=== PATIENT | female | born 1940 | race Caucasian/White ===

== ENCOUNTER → 2017-10-18 | Outpatient (CLI) | payer OTHER, MEDICARE ==
[~2017-10-18] MED LIST: ASCO100T4 PO; ASPECOTC PO; ASPI-391 PO; CHOL100027 PO; CYAN250T PO; CYM/30 PO; DULO-24 PO; GABA-112 PO; HYDR-5688 PO; HYDR2.5O TOP; LVMI SQ; PRT/20 PO
[2017-10-18 12:13] LABS: BASO % 0.4 %; BASO ABS # 0.02 K/uL (0-0.2); EOS % 1.6 %; EOS ABS # 0.08 K/uL (0-0.5); HEMATOCRIT 43.4 % (37-47); HEMOGLOBIN 14.7 g/dL (12.0-16.0); IG# 0.01 K/uL (0.00-0.02); LYMPH % 42.4 %; LYMPH ABS # 2.13 K/uL (1.2-3.4); MEAN CELL VOLUME 88.2 fL (80-100); MEAN CORPUSCULAR HEMOGLOBIN 29.9 pg (25-34); MEAN CORPUSCULAR HGB CONC 33.9 g/dl (32-36); MEAN PLATELET VOLUME 9.7 fL (7.4-10.4); MONO % 8.2 %; MONO ABS # 0.41 K/uL (0.11-0.59); NEUT % 47.2 %; NEUT ABS # 2.37 K/uL (1.4-6.5); PLATELET COUNT 262 K/uL (130-400); RED CELL DISTRIBUTION WIDTH CV 14.1 % (11.5-14.5); RED CELL DISTRIBUTION WIDTH SD 45.1 fL (36.4-46.3); WHITE BLOOD COUNT 5.02 K/uL (4.8-10.8)
[2017-10-18 12:30] LABS: HEMOGLOBIN A1C 7.1 % (4.5-5.6)
[2017-10-18 12:41] LABS: ALT/SGPT 30 U/L (12-78); BLOOD UREA NITROGEN 26 mg/dl (7-18); CALCIUM 9.5 mg/dl (8.5-10.1); CARBON DIOXIDE 29 mmol/L (21-32); CHOLESTEROL 305 mg/dl (0-200); CREATININE 0.72 mg/dl (0.60-1.20); GLUCOSE 133 mg/dl (70-99); SODIUM 138 mmol/L (136-145)
[2017-10-18 12:57] LABS: ALKALINE PHOSPHATASE 86 U/L (45-117); AST/SGOT 19 U/L (15-37); LDL CHOLESTEROL CALCULATED 190 mg/dl; TOTAL PROTEIN 7.1 gm/dl (6.4-8.2)
--- NOTE | 2017-10-24 13:23 | CODING QUERY MEDICAL NECESSITY ---
SUPPORTING DIAGNOSIS NEEDED A supporting diagnosis is required for the test/procedure performed on this patient in order for us to be reimbursed by the patient's insurance. Please provide a supporting diagnosis for the following test/procedure listed below next to the test name along with your signature. *If there is no additional diagnosis for this patient that would support the following test/procedure please document that below next to the test/procedure. Test(s)/Procedure(s) that require a supporting diagnosis: * VITAMIN D, 25-HYDROXY DIAGNOSIS: * VITAMIN B12 DIAGNOSIS: Provider Signature: Date: Thank you Adeline Suh [facility] Information Management Once completed, please kindly fax back to [phone] For questions please call [phone]
== END | disposition home or self-care (01) ==
LOC: C.LAB1850 10:40
PROVIDERS: ATTEND Internal Medicine Endocrinology, Diabetes & Metabolism
DX: E11.9 Type 2 diabetes mellitus without complications (principal)

== ENCOUNTER 2018-02-16 20:54 | Emergency (ER) | payer OTHER, MEDICARE ==
[~2018-02-16] VITALS: Ht 154.9 cm; Wt 60.9 kg
[2018-02-16 21:00] VITALS: TEMP 36.8; Ht 154.9 cm; Wt 60.9 kg
[2018-02-16] MEDS ORDERED: SODIUM CHLORIDE 0.9% 1000ML 1,000 ML IV STA (21:18)
[2018-02-16] MEDS ORDERED: MoRPHine SULFATE 4 MG/ML 1 ML CARP\\VIAL IV STA ×2 (21:18→23:09)
[2018-02-16] MEDS ORDERED: ONDANSETRON INJ 2 MG/ML 2 ML VIAL IV STA (21:18)
[2018-02-16] MEDS ORDERED: DULO-24 PO (22:12)
[2018-02-16] MEDS ORDERED: CHOL100027 PO (22:12)
[2018-02-16] MEDS ORDERED: ASPECOTC PO (22:12)
[2018-02-16] MEDS ORDERED: CYM/30 PO (22:12)
[2018-02-16] MEDS ORDERED: ASPI-391 PO (22:12)
[2018-02-16] MEDS ORDERED: HYDR-5688 PO (22:12)
[2018-02-16] MEDS ORDERED: PRT/20 PO (22:12)
[2018-02-16] MEDS ORDERED: HYDR2.5O TOP (22:12)
[2018-02-16] MEDS ORDERED: CYAN250T PO (22:12)
[2018-02-16] MEDS ORDERED: ASCO100T4 PO (22:12)
[2018-02-16] MEDS ORDERED: GABA-112 PO (22:12)
[2018-02-16] MEDS ORDERED: LVMI SQ (22:12)
[2018-02-16 22:38] LABS: BASO % 0.5 %; BASO ABS # 0.04 K/uL (0-0.2); EOS % 1.6 %; EOS ABS # 0.13 K/uL (0-0.5); HEMATOCRIT 39.2 % (37-47); HEMOGLOBIN 13.9 g/dL (12.0-16.0); IG# 0.01 K/uL (0.00-0.02); LYMPH % 37.9 %; MEAN CELL VOLUME 85.8 fL (80-100); MEAN CORPUSCULAR HEMOGLOBIN 30.4 pg (25-34); MEAN CORPUSCULAR HGB CONC 35.5 g/dl (32-36); MEAN PLATELET VOLUME 9.4 fL (7.4-10.4); MONO % 8.2 %; MONO ABS # 0.65 K/uL (0.11-0.59); NEUT % 51.7 %; NEUT ABS # 4.09 K/uL (1.4-6.5); PLATELET COUNT 219 K/uL (130-400); RED CELL DISTRIBUTION WIDTH CV 14.4 % (11.5-14.5); RED CELL DISTRIBUTION WIDTH SD 43.5 fL (36.4-46.3); WHITE BLOOD COUNT 7.92 K/uL (4.8-10.8)
--- NOTE | 2018-02-16 22:51 | DIAGNOSTIC IMAGING REPORT ---
SINGLE VIEW CHEST CLINICAL HISTORY: Atypical chest pain. FINDINGS: An AP, portable, upright chest radiograph is obtained. No prior studies are available for comparison at the time of dictation. The examination is degraded by portable technique and patient rotation. The cardiomediastinal silhouette is unremarkable. There is mild atherosclerotic calcification of the thoracic and. Airspace opacities are seen at both lung bases, left greater than right. No large pleural effusion or pneumothorax is seen. The skeletal structures are osteopenic. The bony thorax is grossly intact. IMPRESSION: There are bibasilar patchy airspace opacities, left greater than right. This could represent atelectasis versus an infectious/inflammatory pneumonitis. Clinical correlation will be required. Radiographic follow-up to resolution is recommended. Electronically signed by: Vicente Nunez M.D. 02/16/2018 10:50 PM Dictated Date/Time: 02/16/2018 10:48 PM
[2018-02-16 22:54] LABS: CALCIUM 9.4 mg/dl (8.5-10.1); CREATININE 0.79 mg/dl (0.60-1.20); POTASSIUM 3.8 mmol/L (3.5-5.1)
[2018-02-16 23:40] VITALS: BP 147/77; PULSE 91; O2SAT 97
--- NOTE | 2018-02-17 00:33 | EMERGENCY ROOM VISIT NOTE ---
History Report prepared by Edgar: Vladimir Branch Under the Supervision of: Dr. Marco A Buchanan D.O. First contact with patient: 21:06 Chief Complaint: OTHER COMPLAINT Stated Complaint: NERVE PAIN, SHINGLES History of Present Illness The patient is an 78 year old female who presents to the Emergency Room with complaints of worsening pain along her left chest wall that began 15 days ago. The patient was diagnosed with Shingles on February 01 while she was in [place] for her birthday. She was given steroids and hydrocortisone cream. The pain acutely worsened this evening when she applied ice 45 minutes ago to her left chest wall. She notes that she has been using ice in the past to improve her symptoms. She denies any headache, change in vision, fevers, chest pain, shortness of breath, nausea, vomiting, diarrhea, pain with urination, and melena. Source of History: patient Onset: 15 days ago Position: chest (Left chest wall) Quality: other (shingles pain) Timing: worsening (45 minutes ago) Modifying Factors (Worsening): other (Applying ICe) Associated Symptoms: No SOB, No nausea, No vomiting Review of Systems See HPI for pertinent positives & negatives. A total of 10 systems reviewed and were otherwise negative. Social History Smoking Status: Never Smoker Current/Historical Medications Scheduled Ascorbic Acid (Vitamin C), 1 TAB PO DAILY Aspirin (Aspirin), 325 MG PO PRN Vnfwxnm-Iaanlhczugxyo-Mcsfwfba (Excedrin Extra Strength), 1 TAB PO PRN Cholecalciferol (Vitamin D 1000 Unit), 1,000 INTER.UNIT PO DAILY Cyanocobalamin (Vitamin B-12), 1 TAB PO DAILY Duloxetine HCl (Cymbalta), 30 MG PO DAILY Duloxetine Hcl (Cymbalta), 10 MG PO DAILY Gabapentin (Neurontin), 1 TAB PO BID Insulin Detemir (Levemir), 18 UNITS SQ DAILY Pantoprazole (Protonix), 20 MG PO DAILY Scheduled PRN Hydrocodone/Acetaminophen 5MG/325MG (Stambaugh 5MG/325MG), 1-2 TABLETS PO 4-6HRS PRN for Pain Hydrocortisone (Topical) (Hydrocortisone), 1 APPLN TOP BID PRN for Allergies Uncoded Allergies: UNKNOWN BP MED (Allergy, Severe, PUFFY FACE, 02/16/18) Physical Exam Vital Signs Date Time Temp Pulse Resp B/P (MAP) Pulse Ox O2 Delivery O2 Flow Rate FiO2 02/16/18 23:40 91 20 147/77 97 Room Air 02/16/18 22:48 91 20 142/75 95 Room Air 02/16/18 21:00 36.8 99 16 163/76 97 Room Air Physical Exam GENERAL: Standing in room, alert, holding left chest wall mild distress, non- toxic EYE EXAM: normal conjunctiva. OROPHARYNX: no exudate, no erythema, lips, buccal mucosa, and tongue normal and mucous membranes are moist NECK: supple, no nuchal rigidity, no adenopathy, non-tender LUNGS: Clear to auscultation. Normal chest wall mechanics HEART: no murmurs, S1 normal and S2 normal ABDOMEN: abdomen soft, non-tender, normo-active bowel sounds, no masses, no rebound or guarding. BACK: Back is symmetrical on inspection and there is no deformity, no midline tenderness, no CVA tenderness. SKIN: There is an erythematous, blistering rash over the left chest wall. UPPER EXTREMITIES: upper extremities are grossly normal. LOWER EXTREMITIES: No pitting edema. NEURO EXAM: Normal sensorium, cranial nerves II-XII grossly intact, normal speech, no gross weakness of arms, no gross weakness of legs. Medical Decision & Procedures ER Provider Diagnostic Interpretation: Radiology results as stated below per my review and the radiologist's interpretation: SINGLE VIEW CHEST CLINICAL HISTORY: Atypical chest pain. FINDINGS: An AP, portable, upright chest radiograph is obtained. No prior studies are available for comparison at the time of dictation. The examination is degraded by portable technique and patient rotation. The cardiomediastinal silhouette is unremarkable. There is mild atherosclerotic calcification of the thoracic and. Airspace opacities are seen at both lung bases, left greater than right. No large pleural effusion or pneumothorax is seen. The skeletal structures are osteopenic. The bony thorax is grossly intact. IMPRESSION: There are bibasilar patchy airspace opacities, left greater than right. This could represent atelectasis versus an infectious/inflammatory pneumonitis. Clinical correlation will be required. Radiographic follow-up to resolution is recommended. Electronically signed by: Vicente Nunez M.D. 02/16/2018 10:50 PM Dictated Date/Time: 02/16/2018 10:48 PM Laboratory Results 02/16/18 22:25 Red Blood Count 4.57, Mean Corpuscular Volume 85.8, Mean Corpuscular Hemoglobin 30.4, Mean Corpuscular Hemoglobin Concent 35.5, Mean Platelet Volume 9.4, Neutrophils (%) (Auto) 51.7, Lymphocytes (%) (Auto) 37.9, Monocytes (%) (Auto) 8.2, Eosinophils (%) (Auto) 1.6, Basophils (%) (Auto) 0.5, Neutrophils # (Auto) 4.09, Lymphocytes # (Auto) 3.00, Monocytes # (Auto) 0.65, Eosinophils # (Auto) 0.13, Basophils # (Auto) 0.04 02/16/18 22:25 Test 02/16/18 22:25 White Blood Count 7.92 K/uL (4.8-10.8) Red Blood Count 4.57 M/uL (4.2-5.4) Hemoglobin 13.9 g/dL (12.0-16.0) Hematocrit 39.2 % (37-47) Mean Corpuscular Volume 85.8 fL (80-100) Mean Corpuscular Hemoglobin 30.4 pg (25-34) Mean Corpuscular Hemoglobin Concent 35.5 g/dl (32-36) Platelet Count 219 K/uL (130-400) Mean Platelet Volume 9.4 fL (7.4-10.4) Neutrophils (%) (Auto) 51.7 % Lymphocytes (%) (Auto) 37.9 % Monocytes (%) (Auto) 8.2 % Eosinophils (%) (Auto) 1.6 % Basophils (%) (Auto) 0.5 % Neutrophils # (Auto) 4.09 K/uL (1.4-6.5) Lymphocytes # (Auto) 3.00 K/uL (1.2-3.4) Monocytes # (Auto) 0.65 K/uL (0.11-0.59) Eosinophils # (Auto) 0.13 K/uL (0-0.5) Basophils # (Auto) 0.04 K/uL (0-0.2) RDW Standard Deviation 43.5 fL (36.4-46.3) RDW Coefficient of Variation 14.4 % (11.5-14.5) Immature Granulocyte % (Auto) 0.1 % Immature Granulocyte # (Auto) 0.01 K/uL (0.00-0.02) Anion Gap 8.0 mmol/L (3-11) Est Creatinine Clear Calc Drug Dose 47.5 ml/min Estimated GFR () 81.9 Estimated GFR (Non- 70.7 BUN/Creatinine Ratio 19.5 (10-20) Calcium Level 9.4 mg/dl (8.5-10.1) Laboratory results per my review. Medications Administered Medications (Trade) Dose Ordered Sig/Brie Route Start Time Stop Time Status Last Admin Dose Admin Sodium Chloride 1,000 ml @ 999 mls/hr Q1H1M STAT IV 02/16/18 21:18 02/16/18 22:18 DC 02/16/18 22:44 999 MLS/HR Ondansetron HCl (Zofran Inj) 4 mg NOW STAT IV 02/16/18 21:18 02/16/18 21:21 DC 02/16/18 22:33 4 MG Morphine Sulfate (MoRPHine SULFATE INJ) 4 mg NOW STAT IV 02/16/18 21:18 02/16/18 21:21 DC 02/16/18 22:34 4 MG Morphine Sulfate (MoRPHine SULFATE INJ) 4 mg NOW STAT IV 02/16/18 23:09 02/16/18 23:10 DC 02/16/18 23:39 4 MG ECG Per My Interpretation Indication: chest pain (shingles) Rate (beats per minute): 92 Rhythm: normal sinus Findings: other (No PVCs, no MONI/STD) ED Course ED COURSE: Vital signs were reviewed and showed situationally hypertensive vitals. The patients medical record was reviewed The above diagnostic studies were performed and reviewed. ED treatments and interventions as stated above. 2106: The patient was evaluated in room B10. A complete history and physical examination was performed. 2117: Ordered Morphine Sulfate 4 mg IV, Zofran 4 mg IV, Sodium Chloride 1000 mL @ 999 mL/hr IV. 2308: Ordered Morphine Sulfate 4 mg IV. 2310: Upon reevaluation, the patient is resting in bed.I discussed my findings with the patient and she understands and agrees with the treatment plan. Based on the patients age, coexisting illnesses, exam and lab findings the decision to treat as an outpatient was made. The patient remained stable while under my care. The patient appeared well at the time of discharge. Medical Decision Differential diagnosis: Etiologies such as contact dermatitis, viral exanthem, urticaria, allergic reaction, Carpio-Tre syndrome, toxic epidermal necrolysis, erythema multiforme, cellulitis, scabies, HSV, varicella, zoster, eczema, staph scalded skin syndrome, fungal infection, as well as others were entertained. Patient is an 78-year-old female who presents the ER for zoster and left-sided chest pain. Pain is located at the site of the rash. CBC along with BMP is unremarkable. Chest x-ray was unremarkable. EKG was benign. Patient was given IV morphine 2. She felt significantly better. She is discharged follow- up with PCP as an outpatient. Discussed with Pt concerning signs and symptoms to watch out for. Pt was instructed to follow up with their PCP and discussed with the patient their option to return to the ED at anytime for persistent or worsening symptoms. The appropriate anticipatory guidance and out-patient management, including indications for return to the emergency department, were explained at length to the patient and understood. Medication Reconcilliation Current Medication List: was personally reviewed by me Blood Pressure Screening Patient's blood pressure: Elevated blood pressure Blood pressure disposition: Elevated BP felt to be situational Impression Primary Impression: Zoster Scribe Attestation The scribe's documentation has been prepared under my direction and personally reviewed by me in its entirety. I confirm that the note above accurately reflects all work, treatment, procedures, and medical decision making performed by me. Departure Information Dispostion Home / Self-Care Referrals Rosey Moore M.D. (PCP) Forms HOME CARE DOCUMENTATION FORM, IMPORTANT VISIT INFORMATION, WORK / SCHOOL INSTRUCTIONS Patient Instructions My [facility] Additional Instructions Please follow up with your primary care doctor with in the next 24 hours. Any worsening of your symptoms, please return to the ED immediately. This includes any fevers greater than 100.4, worsening pain, chest pain, shortness breath, persistent nausea, vomiting, unable to eat or drink, or any other concerning signs or symptoms from your standpoint. You were given medications during this visit that will inhibit your ability to drive, operate machinery and work. Please do NOT drive, operate machinery, drink alcohol or work for the next 12hrs. You have oral narcotics at home. Was initially given you a prescription of this but yet same medications at home. Please take these as prescribed. Problem Qualifiers Primary Impression: Zoster Herpes zoster complications: without complications Qualified Codes: B02.9 - Zoster without complications
== END 2018-02-16 23:51 | disposition home or self-care (01) ==
LOC: C.EDB 20:56
DX: B02.9 Zoster without complications (principal); Z79.899 Other long term (current) drug therapy

== ENCOUNTER → 2018-06-09 | Outpatient (CLI) | payer OTHER, MEDICARE ==
--- NOTE | 2018-06-09 17:47 | DIAGNOSTIC IMAGING REPORT ---
R WRIST MIN 3 VIEWS ROUTINE CLINICAL HISTORY: Bilateral wrist pain. COMPARISON: None FINDINGS: A ring on the fourth finger is noted. No fracture or suspicious lesion is noted. No erosions are identified. There is mild osteophytosis of the right first metacarpophalangeal joint. IMPRESSION: 1. No acute fracture or dislocation within the right wrist. 2. No radiographic evidence of erosive/inflammatory arthropathy. 3. 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 Electronically signed by: Justo Rai M.D. 06/09/2018 5:46 PM Dictated Date/Time: 06/09/2018 5:45 PM
--- NOTE | 2018-06-09 17:53 | DIAGNOSTIC IMAGING REPORT ---
L WRIST MIN 3 VIEWS ROUTINE CLINICAL HISTORY: Bilateral wrist pain. COMPARISON: None FINDINGS: Note is made of cortical irregularity of the radial styloid with overlying soft tissue swelling. No acute fracture is identified. There is mild osteophytosis of the left first carpometacarpal joint. IMPRESSION: Cortical irregularity of the radial styloid with overlying soft tissue swelling which favors De Quervain's tenosynovitis. Electronically signed by: Justo Rai M.D. 06/09/2018 5:52 PM Dictated Date/Time: 06/09/2018 5:48 PM
[2018-06-10 06:04] LABS: HEMOGLOBIN A1C 8.1 % (4.5-5.6)
== END | disposition home or self-care (01) ==
LOC: C.RAD1850 16:57
PROVIDERS: ATTEND Internal Medicine Rheumatology
DX: E11.42 Type 2 diabetes mellitus with diabetic polyneuropathy (principal); M25.532 Pain in left wrist; M65.4 Radial styloid tenosynovitis [de Quervain]

== ENCOUNTER 2023-02-22 12:38 | Inpatient (IN) ==
--- NOTE | 2023-02-22 13:09 | XRay Report ---
SINGLE VIEW CHEST CLINICAL HISTORY: Cough. Illness FINDINGS: An AP, portable, upright chest radiograph is compared to study dated 02/16/2018. The cardiom ediastinal silhouette is unremarkable noting atherosclerotic calcification of the thoracic aorta. Chr onic interstitial thickening is similar to previous. There is bibasilar scarring/atelectasis. No airs pace consolidation or large pleural effusion is identified. No pneumothorax is seen. The skeletal str uctures are osteopenic. The bony thorax is grossly intact. An indeterminate ovoid metallic foreign angel dy projects over the upper abdomen. IMPRESSION: 1. No acute cardiopulmonary abnormality. 2. An indeterminant metallic foreign body projects over the upper abdomen. Correlate clinically. ACT 112: Negative or not required by law. Electronically signed by: Vicente Nunez M.D. 02/22/2023 1:07 PM
[2023-02-22 13:45] LABS: Basophils # (auto) 0.01 K/uL (0-0.2); Basophils % (auto) 0.1 %; Hematocrit (blood only) 41.6 % (37.0-47.0); Hemoglobin 14.3 g/dl (12.0-16.0); Immature Granulocytes # (auto) 0.02 K/uL (0.01-0.20); Immature Granulocytes % (auto) 0.3 %; Lymphocytes # (auto) 0.76 K/uL (1.2-3.4); Lymphocytes % (auto) 11.4 %; Mean Corpuscular Hemoglobin 29.2 pg (25.0-34.0); Mean Corpuscular Hgb Conc 34.4 g/dL (32.0-36.0); Mean Corpuscular Volume 85.1 fL (80.0-100.0); Mean Platelet Volume 10.4 fL (9.4-12.4); Monocytes # (auto) 0.65 K/uL (0.11-0.59); Monocytes % (auto) 9.7 %; Neutrophils # (auto) 5.25 K/uL (1.40-6.50); Neutrophils % (auto) 78.5 %; Platelet Count 202 K/uL (130-400); RDW Coefficient of Variation 13.8 % (11.5-14.5); RDW Standard Deviation 42.9 fL (36.4-46.3); Red Blood Count 4.89 M/uL (4.20-5.40); White Blood Count 6.69 K/ul (4.8-10.8)
[2023-02-22] MEDS ORDERED: SODIUM CHLORIDE 0.9% 1000ML 500 ML IV ONE (13:49)
--- NOTE | 2023-02-22 13:54 | Emergency Department Note ---
Impression & Plan Hypoxia ADMIT ED Provider Note HPI: The patient is an 83-year-old female who presents emergency department chief complaint of cough and shortness of breath. Patient states her symptoms of been ongoing for about the past 5 or 6 days. Patient states she just returned home from a trip to [place] on Saturday. She states her symptoms did begin while she was still in [place]. She states that she has had a cough that has been productive of sputum. States she does feel short of breath. On arrival here to the ED the patient is hemodynamically stable, she is in no acute distress, saturations are in the low 90s on room air on arrival with mild increased work of breathing ROS: - Per HPI *Outpatient medications and allergy history reviewed. *Pertinent external medical records reviewed. PE: General: Alert HEENT: Normocephalic, trachea midline Eyes: Extraocular eye movement is intact, no scleral erythema Pulmonary: Coarse bilateral breath sounds without wheezing, no crackles Cardio: Regular rate and rhythm GI: Abdomen is soft to palpation : No suprapubic tenderness MSK: No evidence of trauma or malformation of the extremities, no edema Skin: No evidence of rash Neuro: Alert, no focal deficits Psychiatric: Cooperative panel monitor: (As interpreted by myself): - An order was placed for continuous cardiac monitoring - Patient was noted to be in sinus rhythm with a rate of 90 EKG: (As interpreted by myself): Rate: 100 Rhythm: Normal sinus rhythm Intervals: Within normal limits ST changes: No ST elevation Time: 1308 Interventions provided in ED: -IV Decadron, DuoNeb breathing treatment Differential Diagnosis: Viral upper respiratory infection with cough, acute bacterial pneumonia, pulmonary embolism, acute coronary syndrome, amongst other potential pathologies. Medical Decision Making: Patient presented to the emergency department with cough and shortness of breath that is been worsening over the past 5 days or so. She recently traveled to [place] and returned home this past Saturday. She states that someone in her tr elly group had COVID-19. On arrival here to the ED the patient does not have a fever, she was initially saturating well on room air however did have an episode of desaturation to 87% here in the ED and therefore was placed on nasal cannula oxygen with good improvement. IV was established and lab work obtained, patient was maintained on court monitor. Lab work shows no leukocytosis, hemoglobin is stable, platelet count is within normal limits, venous blood gas does not show any evidence of h ypercarbia, venous pH is just slightly alkalotic at 7.44, CMP does not show any critical findings, hyperglycemia at 322 without any evidence of DKA, troponin slightly elevated at 33.8. Procalcitonin pending. COVID-19 testing was obtained and is positive. Given the patient's hypoxia and oxygen requirement, decision was made for admission following my discussion with the patient and her daughter at the bedside. Chest x-ray was not noted to show any focal pneumonia. CT angiography did not show any evidence of PE. Case was discussed with the on-call midlevel provider for [facility], patient was placed for admission in stable condition. Consultants: [facility] Disposition discussion held by myself with: Patient * CRITICAL CARE TIME: (35) minutes -Stabilization of hypoxia with oxygen saturation less than 90% on room air requiring supplemental oxygen for correction, interpretation of EKG and diagnostic studies time spent at the bedside, discussion with other healthcare providers and arrangement of admission Diagnosis: 1. COVID-19 infection, acute 2. Hypoxia, acute Disposition: Admission Kiran Nieves DO Emergency Medicine Past Med/Surg History Medical History (Updated 02/22/23 @ 18:29 by Kiran Nieves DO) Degenerative disc disease Depression Diarrhea DM type 2 (diabetes mellitus, type 2) IDDM GERD (gastroesophageal reflux disease) History of colon polyps History of migraine History of sigmoidoscopy Hyperlipemia no meds Osteoarthritis Osteoporosis TMJ (temporomandibular joint disorder) Surgical History History of appendectomy History of arthroscopic knee surgery History of bilateral knee replacement History of colonoscopy History of tonsillectomy and adenoidectomy Slow to wake up after anesthesia Family History Other No family history of adverse response to anesthesia Social History Smoking Status: Former smoker Second Hand Exposure: No; Do You Dip or Chew Tobacco: No; Hx Alcohol Use: Yes Alcohol type: wine Hx Substance Use: No Preferred Language: Indonesian Communication Ability: Effective Odd Ticket Clerk Required: No Beliefs That Will Affect Care: None Current Living Situation: Alone Feels Safe at Home: Yes Assistive Devices: Glasses Allergies Allergies Allergy/AdvReac Type Severity Reaction Status Date / Time latex Allergy Redness of Verified 02/22/23 15:44 Skin UNKNOWN BP MED Allergy Severe PUFFY FACE Uncoded 02/22/23 15:44 Home Meds Home Medications Medication Instructions Recorded Confirmed buspirone 10 mg tablet 10 mg PO BID 02/22/23 02/22/23 cetirizine 10 mg tablet (Zyrtec) 10 mg PO DAILY 02/22/23 02/22/23 famotidine 20 mg tablet 20 mg PO BID 02/22/23 02/22/23 ibuprofen 200 mg tablet 400 mg PO Q6H PRN Pain 02/22/23 02/22/23 insulin glargine 100 unit/mL (3 30 unit subcut HS 02/22/23 02/22/23 mL) subcutaneous pen (Lantus Solostar U-100 Insulin) melatonin 5 mg tablet 5 mg PO DAILYBL 02/22/23 02/22/23 mirtazapine 15 mg tablet 15 mg PO QPM 02/22/23 02/22/23 multivitamin 1 tab PO DAILY 02/22/23 02/22/23 pantoprazole 40 mg tablet,delayed 40 mg PO DAILY 02/22/23 02/22/23 release venlafaxine 150 mg 150 mg PO BID 02/22/23 02/22/23 capsule,extended release 24 hr vitamin E (dl, acetate) 180 mg 180 mg PO HS 02/22/23 02/22/23 (400 unit) capsule Results & Data (ED) Vital Signs Vital Signs - 24 hr 02/22/23 12:44 02/22/23 14:01 02/22/23 14:12 Temperature 37.5 C Temperature Source Temporal Artery Scan Pulse Rate 107 H Pulse Rate [Apical] 94 H Respiratory Rate 20 24 Respiratory Effort / Characteristics Non-Labored Spontaneous Non-Labored Spontaneous Respiratory Depth Normal Normal Respiratory Pattern Regular Blood Pressure 153/81 H Blood Pressure [Right Arm] 123/60 Blood Pressure Mean 105 Blood Pressure Mean [Right Arm] 81 Pulse Oximetry 93 92 95 Oxygen Delivery Method Room Air Room Air Nasal Cannula Oxygen Flow Rate 2 Sepsis Recent Fever Within 48 Hours No Sepsis New/Unexplained Change in Mental Status No Sepsis Action Taken by Nursing No Action Required 02/22/23 14:10 02/22/23 16:03 02/22/23 17:55 Temperature Temperature Source Pulse Rate 90 87 Pulse Rate [Apical] Respiratory Rate 22 Respiratory Effort / Characteristics Respiratory Depth Respiratory Pattern Blood Pressure 111/72 Blood Pressure [Right Arm] Blood Pressure Mean Blood Pressure Mean [Right Arm] Pulse Oximetry 87 L 94 Oxygen Delivery Method Room Air Room Air Oxygen Flow Rate Sepsis Recent Fever Within 48 Hours Sepsis New/Unexplained Change in Mental Status Sepsis Action Taken by Nursing Laboratory Data 02/22/23 13:20 02/22/23 13:20 Lab Results 02/22/23 02/22/23 02/22/23 Range/Units 13:20 13:20 13:20 WBC 6.69 (4.8-10.8) K/ul RBC 4.89 (4.20-5.40) M/uL Hgb 14.3 (12.0-16.0) g/dl Hct 41.6 (37.0-47.0) % MCV 85.1 (80.0-100.0) fL MCH 29.2 (25.0-34.0) pg MCHC 34.4 (32.0-36.0) g/dL RDW Std Deviation 42.9 (36.4-46.3) fL RDW Coeff of Joseph 13.8 (11.5-14.5) % Plt Count 202 (130-400) K/uL MPV 10.4 (9.4-12.4) fL Immature Gran % (Auto) 0.3 % Neut % (Auto) 78.5 % Lymph % (Auto) 11.4 % Carson % (Auto) 9.7 % Eos % (Auto) 0.0 % Baso % (Auto) 0.1 % Neut # (Auto) 5.25 (1.40-6.50) K/uL Lymph # (Auto) 0.76 L (1.2-3.4) K/uL Carson # (Auto) 0.65 H (0.11-0.59) K/uL Eos # (Auto) 0.00 (0-0.50) K/uL Baso # (Auto) 0.01 (0-0.2) K/uL Immature Gran # (Auto) 0.02 (0.01-0.20) K/uL VBG pH (7.36-7.41) VBG pCO2 (38-50) mmHg VBG pO2 mmHg VBG HCO3 mmol/L VBG O2 Saturation % VBG Base Excess mEq/L Sodium 130 L (136-145) mmol/L Potassium 3.9 (3.5-5.1) mmol/L Chloride 98 (98-107) mmol/L Carbon Dioxide 22 (21-32) mmol/L Anion Gap 10 (3-11) BUN 15 (6-23) mg/dl Creatinine 0.70 (0.6-1.2) mg/dl Est Cr Clr Drug Dosing 44.3 ml/min Est GFR ( Amer) 91.6 ml/min Est GFR (Non-Af Amer) 79.0 ml/min BUN/Creatinine Ratio 21.4 H (10-20) Glucose 322 H* (70-99(Fasting)) mg/dl Calcium 9.0 (8.6-10.3) mg/dl Total Bilirubin 0.4 (0.2-1.0) mg/dl AST 25 (13-39) U/L ALT 18 (7-52) U/L Alkaline Phosphatase 77 (34-104) U/L Troponin I High Sens 33.8 H (0-14) pg/ml C-Reactive Protein Total Protein 6.6 (6.0-8.3) gm/dl Albumin 4.1 (3.4-5.0) gm/dl Globulin 2.5 (2.5-4.0) gm/dl Albumin/Globulin Ratio 1.6 (0.9-2) Adenovirus (PCR) (NotDetected) B. pertussis DNA (PCR) (NotDetected) B.parapertussis DNA PCR (NotDetected) C. pneumoniae DNA (PCR) (NotDetected) Coronavirus OC43 (PCR) (NotDetected) Coronavirus HKU1 (PCR) (NotDetected) Coronavirus 229E (PCR) (NotDetected) SARS-CoV-2 (PCR) (NotDetected) Coronavirus NL63 (PCR) (NotDetected) Human Metapneumovir PCR (NotDetected) Influenza Type A (PCR) (NotDetected) Influenza Type B (PCR) (NotDetected) M. pneumoniae (PCR) (NotDetected) Parainfluenza 1 (PCR) (NotDetected) Parainfluenza 2 (PCR) (NotDetected) Parainfluenza 3 (PCR) (NotDetected) Parainfluenza 4 (PCR) (NotDetected) RSV (PCR) (NotDetected) Entero/Rhino (PCR) (NotDetected) Group A Strep (Molecular) (Negative) Group A Strep (PCR) Cancelled 02/22/23 02/22/23 02/22/23 Range/Units 13:20 13:20 13:48 WBC (4.8-10.8) K/ul RBC (4.20-5.40) M/uL Hgb (12.0-16.0) g/dl Hct (37.0-47.0) % MCV (80.0-100.0) fL MCH (25.0-34.0) pg MCHC (32.0-36.0) g/dL RDW Std Deviation (36.4-46.3) fL RDW Coeff of Joseph (11.5-14.5) % Plt Count (130-400) K/uL MPV (9.4-12.4) fL Immature Gran % (Auto) % Neut % (Auto) % Lymph % (Auto) % Carson % (Auto) % Eos % (Auto) % Baso % (Auto) % Neut # (Auto) (1.40-6.50) K/uL Lymph # (Auto) (1.2-3.4) K/uL Carson # (Auto) (0.11-0.59) K/uL Eos # (Auto) (0-0.50) K/uL Baso # (Auto) (0-0.2) K/uL Immature Gran # (Auto) (0.01-0.20) K/uL VBG pH (7.36-7.41) VBG pCO2 (38-50) mmHg VBG pO2 mmHg VBG HCO3 mmol/L VBG O2 Saturation % VBG Base Excess mEq/L Sodium (136-145) mmol/L Potassium (3.5-5.1) mmol/L Chloride (98-107) mmol/L Carbon Dioxide (21-32) mmol/L Anion Gap (3-11) BUN (6-23) mg/dl Creatinine (0.6-1.2) mg/dl Est Cr Clr Drug Dosing ml/min Est GFR ( Amer) ml/min Est GFR (Non-Af Amer) ml/min BUN/Creatinine Ratio (10-20) Glucose (70-99(Fasting)) mg/dl Calcium (8.6-10.3) mg/dl Total Bilirubin (0.2-1.0) mg/dl AST (13-39) U/L ALT (7-52) U/L Alkaline Phosphatase (34-104) U/L Troponin I High Sens Cancelled (0-14) pg/ml C-Reactive Protein Total Protein (6.0-8.3) gm/dl Albumin (3.4-5.0) gm/dl Globulin (2.5-4.0) gm/dl Albumin/Globulin Ratio (0.9-2) Adenovirus (PCR) Not Detected (NotDetected) B. pertussis DNA (PCR) Not Detected (NotDetected) B.parapertussis DNA PCR Not Detected (NotDetected) C. pneumoniae DNA (PCR) Not Detected (NotDetected) Coronavirus OC43 (PCR) Not Detected (NotDetected) Coronavirus HKU1 (PCR) DETECTED A* (NotDetected) Coronavirus 229E (PCR) Not Detected (NotDetected) SARS-CoV-2 (PCR) DETECTED A* (NotDetected) Coronavirus NL63 (PCR) Not Detected (NotDetected) Human Metapneumovir PCR Not Detected (NotDetected) Influenza Type A (PCR) Not Detected (NotDetected) Influenza Type B (PCR) Not Detected (NotDetected) M. pneumoniae (PCR) Not Detected (NotDetected) Parainfluenza 1 (PCR) Not Detected (NotDetected) Parainfluenza 2 (PCR) Not Detected (NotDetected) Parainfluenza 3 (PCR) Not Detected (NotDetected) Parainfluenza 4 (PCR) Not Detected (NotDetected) RSV (PCR) Not Detected (NotDetected) Entero/Rhino (PCR) Not Detected (NotDetected) Group A Strep (Molecular) Negative (Negative) Group A Strep (PCR) 02/22/23 02/22/23 Range/Units 15:29 16:59 WBC (4.8-10.8) K/ul RBC (4.20-5.40) M/uL Hgb (12.0-16.0) g/dl Hct (37.0-47.0) % MCV (80.0-100.0) fL MCH (25.0-34.0) pg MCHC (32.0-36.0) g/dL RDW Std Deviation (36.4-46.3) fL RDW Coeff of Joseph (11.5-14.5) % Plt Count (130-400) K/uL MPV (9.4-12.4) fL Immature Gran % (Auto) % Neut % (Auto) % Lymph % (Auto) % Carson % (Auto) % Eos % (Auto) % Baso % (Auto) % Neut # (Auto) (1.40-6.50) K/uL Lymph # (Auto) (1.2-3.4) K/uL Carson # (Auto) (0.11-0.59) K/uL Eos # (Auto) (0-0.50) K/uL Baso # (Auto) (0-0.2) K/uL Immature Gran # (Auto) (0.01-0.20) K/uL VBG pH 7.44 H (7.36-7.41) VBG pCO2 36 L (38-50) mmHg VBG pO2 39 mmHg VBG HCO3 25 mmol/L VBG O2 Saturation 72.7 % VBG Base Excess 0.7 mEq/L Sodium (136-145) mmol/L Potassium (3.5-5.1) mmol/L Chloride (98-107) mmol/L Carbon Dioxide (21-32) mmol/L Anion Gap (3-11) BUN (6-23) mg/dl Creatinine (0.6-1.2) mg/dl Est Cr Clr Drug Dosing ml/min Est GFR ( Amer) ml/min Est GFR (Non-Af Amer) ml/min BUN/Creatinine Ratio (10-20) Glucose (70-99(Fasting)) mg/dl Calcium (8.6-10.3) mg/dl Total Bilirubin (0.2-1.0) mg/dl AST (13-39) U/L ALT (7-52) U/L Alkaline Phosphatase (34-104) U/L Troponin I High Sens (0-14) pg/ml C-Reactive Protein Cancelled Total Protein (6.0-8.3) gm/dl Albumin (3.4-5.0) gm/dl Globulin (2.5-4.0) gm/dl Albumin/Globulin Ratio (0.9-2) Adenovirus (PCR) (NotDetected) B. pertussis DNA (PCR) (NotDetected) B.parapertussis DNA PCR (NotDetected) C. pneumoniae DNA (PCR) (NotDetected) Coronavirus OC43 (PCR) (NotDetected) Coronavirus HKU1 (PCR) (NotDetected) Coronavirus 229E (PCR) (NotDetected) SARS-CoV-2 (PCR) (NotDetected) Coronavirus NL63 (PCR) (NotDetected) Human Metapneumovir PCR (NotDetected) Influenza Type A (PCR) (NotDetected) Influenza Type B (PCR) (NotDetected) M. pneumoniae (PCR) (NotDetected) Parainfluenza 1 (PCR) (NotDetected) Parainfluenza 2 (PCR) (NotDetected) Parainfluenza 3 (PCR) (NotDetected) Parainfluenza 4 (PCR) (NotDetected) RSV (PCR) (NotDetected) Entero/Rhino (PCR) (NotDetected) Group A Strep (Molecular) (Negative) Group A Strep (PCR) Administered Medications Discontinued Medications Albuterol (Albut/Ipratrop 3mg/0.5mg Neb 3 Ml Vial) 3 ml NEB NOW STA; Protocol Stop: 02/22/23 14:53 Last Admin: 02/22/23 15:35 Dose: 3 ml Documented By: SEEMA Sodium Chloride (Nss 1000ml) 500 mls @ 999 mls/hr IV .Q31M ONE Stop: 02/22/23 14:19 Last Infusion: 02/22/23 16:03 Dose: 0 mls/hr Documented By: Admin: 02/22/23 13:57 Dose: 999 mls/hr Documented By: GREG Ioversol (Optiray 320 500ml) 120 ml IV ONCE ONE Stop: 02/22/23 14:32 Last Admin: 02/22/23 14:32 Dose: 120 ml Documented By: SE Imaging Data Radiologist's Impression: Chest X-Ray 02/22/23 12:50 SINGLE VIEW CHEST CLINICAL HISTORY: Cough. Illness FINDINGS: An AP, portable, upright chest radiograph is compared to study dated 02/16/2018. The cardiomediastinal silhouette is unremarkable noting atherosclerotic calcification of the thoracic aorta. Chronic interstitial thickening is similar to previous. There is bibasilar scarring/atelectasis. No airspace consolidation or large pleural effusion is identified. No pneumothorax is seen. The skeletal structures are osteopenic. The bony thorax is grossly intact. An indeterminate ovoid metallic foreign body projects over the upper abdomen. IMPRESSION: 1. No acute cardiopulmonary abnormality. 2. An indeterminant metallic foreign body projects over the upper abdomen. Correlate clinically. ACT 112: Negative or not required by law. Electronically signed by: Vicente Nunez M.D. 02/22/2023 1:07 PM Chest CTA 02/22/23 13:50 CT ANGIOGRAPHY OF THE CHEST, PULMONARY EMBOLUS PROTOCOL CLINICAL HISTORY: Shortness of breath. Evaluate for pulmonary embolus. COMPARISON STUDY: Chest radiographs February 16, 2018 and February 22, 2023. TECHNIQUE: Following IV administration of 120 mL of Optiray, helical axial images of the chest were obtained utilizing the pulmonary embolus protocol. Maximal intensity projections and sagittal and coronal reformats were viewed on an independent 3D workstation. IV contrast was administered without complication. Automated exposure control was utilized for the study. A dose lowering technique was utilized adhering to the principles of ALARA. CT DOSE: 437.36 mGycm FINDINGS: No pulmonary emboli are identified although the segmental and subsegmental pulmonary arteries within the lower lobes are suboptimally assessed due to respiratory motion. There is no thoracic aortic dissection. There is no pericardial effusion. Mild cardiomegaly is noted. A few prominent AP window lymph nodes measure up to 1 x 0.8 cm. No pneumothorax or pleural effusion is present. The lungs are suboptimally assessed due to respiratory motion. There are small multifocal subpleural groundglass opacities. No confluent consolidation is identified.Visualized portions of the upper abdomen are unremarkable. There is a small hiatal hernia. IMPRESSION: 1. No pulmonary emboli identified. However, evaluation of the lower lobe segmental and subsegmental pulmonary arteries is significantly compromised by respiratory motion. 2. Multifocal subpleural groundglass opacities. These favor an infectious et iology. 3. Mild cardiomegaly. ACT 112: Negative or not required by law. Electronically signed by: Justo Rai M.D. 02/22/2023 2:56 PM Discharge Plan Visit Data Chief Complaint: Illness Stated Complaint: BEEN SICK, WAS IN [facility] ED Provider: Kiran Nieves Discharge Problem: Hypoxia Forms Stand Alone Forms: [facility] Prescriptions Prescriptions: No Action multivitamin Tablet 1 tab PO DAILY venlafaxine 150 mg capsule,extended release 24hr 150 mg PO BID famotidine 20 mg tablet 20 mg PO BID pantoprazole 40 mg tablet,delayed release (DR/EC) 40 mg PO DAILY buspirone 10 mg tablet 10 mg PO BID Rx Instructions: MAY TAKE A 3RD DOSE IF NEEDED. ibuprofen 200 mg Tablet 400 mg PO Q6H PRN (Reason: Pain) mirtazapine 15 mg tablet 15 mg PO QPM insulin glargine [Lantus Solostar U-100 Insulin] 100 unit/mL (3 mL) insulin pen 30 unit SUBCUT HS melatonin 5 mg Tablet 5 mg PO DAILYBL cetirizine [Zyrtec] 10 mg Tablet 10 mg PO DAILY vitamin E (dl, acetate) 180 mg (400 unit) Capsule 180 mg PO HS Referrals Referrals: [place] Nori Gonzales [Non-Staff] -
[2023-02-22 14:15] LABS: Albumin Globulin Ratio 1.6 (0.9-2); Albumin Level 4.1 gm/dl (3.4-5.0); BUN Creatinine Ratio 21.4 (10-20); Bilirubin,Total 0.4 mg/dl (0.2-1.0); Creatinine Clr Calc Pharmacy 44.3 ml/min; Est GFR (African American) 91.6 ml/min; Globulin 2.5 gm/dl (2.5-4.0); Potassium 3.9 mmol/L (3.5-5.1); Total Protein 6.6 gm/dl (6.0-8.3)
[2023-02-22] MEDS ORDERED: OPTIRAY 320 500ml IV ONE (14:31)
[2023-02-22 14:39] LABS: Adenovirus PCR Not Detected (NotDetected); Bordetella parapertussis PCR Not Detected (NotDetected); Bordetella pertussis PCR Not Detected (NotDetected); Chlamydia pneumoniae PCR Not Detected (NotDetected); Coronavirus 229E PCR Not Detected (NotDetected); Coronavirus NL63 PCR Not Detected (NotDetected); Coronavirus OC43PCR Not Detected (NotDetected); Human Metapneumovirus PCR Not Detected (NotDetected); Influenza A PCR Not Detected (NotDetected); Influenza B PCR Not Detected (NotDetected); Mycoplasma pneumoniae PCR Not Detected (NotDetected); Parainfluenza Virus 1 PCR Not Detected (NotDetected); Parainfluenza Virus 2 PCR Not Detected (NotDetected); Parainfluenza Virus 3 PCR Not Detected (NotDetected); Parainfluenza Virus 4 PCR Not Detected (NotDetected); Respiratory Syncytial VirusPCR Not Detected (NotDetected); Rhinovirus/Enterovirus PCR Not Detected (NotDetected)
[2023-02-22] MEDS ORDERED: ALBUT/IPRATROP 3MG/0.5MG NEB 3 ML VIAL NEB STA (14:52)
[2023-02-22 14:55] LABS: Coronavirus CoV-2 (COVID19)PCR DETECTED (NotDetected); Coronavirus HKU1 PCR DETECTED (NotDetected)
--- NOTE | 2023-02-22 14:57 | CT Scan Report ---
CT ANGIOGRAPHY OF THE CHEST, PULMONARY EMBOLUS PROTOCOL CLINICAL HISTORY: Shortness of breath. Evaluate for pulmonary embolus. COMPARISON STUDY: Chest radiographs February 16, 2018 and February 22, 2023. TECHNIQUE: Following IV administration of 120 mL of Optiray, helical axial images of the chest were o btained utilizing the pulmonary embolus protocol. Maximal intensity projections and sagittal and cor onal reformats were viewed on an independent 3D workstation. IV contrast was administered without co mplication. Automated exposure control was utilized for the study. A dose lowering technique was ut ilized adhering to the principles of ALARA. CT DOSE: 437.36 mGycm FINDINGS: No pulmonary emboli are identified although the segmental and subsegmental pulmonary arter ies within the lower lobes are suboptimally assessed due to respiratory motion. There is no thoracic aortic dissection. There is no pericardial effusion. Mild cardiomegaly is noted. A few prominent AP w indow lymph nodes measure up to 1 x 0.8 cm. No pneumothorax or pleural effusion is present. The lungs are suboptimally assessed due to respiratory motion. There are small multifocal subpleural groundgla ss opacities. No confluent consolidation is identified.Visualized portions of the upper abdomen are u nremarkable. There is a small hiatal hernia. IMPRESSION: 1. No pulmonary emboli identified. However, evaluation of the lower lobe segmental and subsegmental p ulmonary arteries is significantly compromised by respiratory motion. 2. Multifocal subpleural groundglass opacities. These favor an infectious etiology. 3. Mild cardiomegaly. ACT 112: Negative or not required by law. Electronically signed by: Justo Rai M.D. 02/22/2023 2:56 PM
[2023-02-22 15:31] LABS: Troponin I High Sensitivity 33.8 pg/ml (0-14)
[2023-02-22 15:36] LABS: Base Excess VBG 0.7 mEq/L; HCO3 VBG 25 mmol/L; Oxygen Saturation VBG 72.7 %; PCO2 VBG 36 mmHg (38-50); PO2 VBG 39 mmHg; pH VBG 7.44 (7.36-7.41)
[2023-02-22] MEDS ORDERED: dexAMETHasone 8 MG in SYRINGE 0 ML IV ONE (16:11)
--- NOTE | 2023-02-22 16:19 | History & Physical Report ---
Date of Service February 22, 2023 Assessment & Plan (1) Pneumonia due to COVID-19 virus: (2) Acute respiratory failure with hypoxia: Plan: - Admit to med tele - COVID-19 positive as well as COVID HKU-1 - Procalcitonin and CRP pending - CXR and CTA reviewed= multifocal opacities indicating pneumonia, no pulmonary emboli - O2 sats improved with 2 L O2, was initially hypoxic at 87% on RA - WBC 6.69, - Lymphocytes 0.76, neutrophils 5.25 - Given decadron 8 mg in the ER, continue 6 mg IV daily. Pt symptoms have been present for over a week, so does not meet the qualification for remdesivir at this time. - Given fluids in the ER, hold on further fluids and allow diet (3) Hyponatremia: Plan: -Sodium of 130 on admission likely secondary to poor p.o. intake -Was given 1L NSS in the ER, hold on further fluids -Recheck BMP at 2100, and with a.m. lab (4) DM type 2 (diabetes mellitus, type 2): Plan: -ISS with Accu-Cheks ACHS -Continue Lantus 30 units HS -Last A1c was 7.9 on 11/01/2022, recheck with a.m. lab -Allow heart healthy diabetic diet -Glycemic pharmacy consulted with steroids, glucose was 331 on admission- give insulin 10 U now (5) GERD (gastroesophageal reflux disease): Plan: -Continue pantoprazole (6) Hyperlipemia: Plan: -Last lipid panel reviewed in [facility], triglycerides 181, cholesterol total 347, HDL 72, LDL 239 - Per pt family list the pt is no longer on rosuvastatin although likely should be on a statin therapy with the above lipid panel, will recheck with am labs DVT PPx: - teds, scds CODE: Full code Dispo: From home, likely to remain in the hospital x 1-2 days A total of 76 minutes were spent with greater than 50% of that time face to face with the patient, personally reviewing all current laboratories, imaging studies, past medication reconciliation, outpatient chart review, and discussion with specialists to collaborate care for the patient with attending. Please see attending documentation for corrections and/or additions. History of Present Illness Chief Complaint: Shortness of breath Primary Care Provider: Rosaura Alvares at [facility] This is a 83-year-old female with PMHx of DM type II, GERD, vitamin D deficiency, MDD who presents to the hospital with worsening shortness of breath, cough, and respiratory complaints. She recently went on a trip to [place] for a total of 3 weeks, and returned this on Saturday02/19/23. After her arrival [place] the [place], she was notified that somebody within their group was positive for COVID. Pt states she noticed that she had worsening shortness of breath with walking up hills that in [place] which started over a week ago. She took two separate covid nasal swab tests while there which were negative and even saw a doctor due to her complaints. Symptoms have worsened over the past 3 to 4 days including cough with green-yellow productive sputum worsening, fatigue, myalgia, very sore throat 1 day. She denies fever, but admits to chills with shaking. Pt has slept nearly nonstop in the past 3 days. Pt reports her sense of taste is gone, but can smell the detergent on her blanket in bed currently . Her po intake has been very poor. She is taking her insulin as directed however with the 26 U QPM. Pt didn't take any of her other medications today. Pt has been vaccinated x 4 shots. She reports her last Booster was whenever it came out, last fall. Pt reports being generally very healthy, and hasn't been in a hospital at all. She hasn't taken any over the counter medications or even tylenol at home for her symptoms. She lives alone with her two cats at [facility] in the [facility] [place]. Her daughter Jessica, brought her here. Patient is found to be positive for COVID HKU-1 and COVID-19. COVID-pneumonia seen on CT of the chest, and pt was hypoxic upon presentation to the ER with O2 sats at 87% now requiring 2 L via NC. She has received an albuterol inhaler treatment with some improvement. CTA of the chest is negative for any pulmonary embolism. Allergies Allergy/AdvReac Type Severity Reaction Status Date / Time latex Allergy Redness of Verified 02/22/23 15:44 Skin UNKNOWN BP MED Allergy Severe PUFFY FACE Uncoded 02/22/23 15:44 Home Medications Medication Instructions Recorded Confirmed Type buspirone 10 mg tablet 10 mg PO BID 02/22/23 02/22/23 History cetirizine 10 mg tablet (Zyrtec) 10 mg PO DAILY 02/22/23 02/22/23 History famotidine 20 mg tablet 20 mg PO BID 02/22/23 02/22/23 History ibuprofen 200 mg tablet 400 mg PO Q6H PRN Pain 02/22/23 02/22/23 History insulin glargine 100 unit/mL (3 30 unit subcut HS 02/22/23 02/22/23 History mL) subcutaneous pen (Lantus Solostar U-100 Insulin) melatonin 5 mg tablet 5 mg PO DAILYBL 02/22/23 02/22/23 History mirtazapine 15 mg tablet 15 mg PO QPM 02/22/23 02/22/23 History multivitamin 1 tab PO DAILY 02/22/23 02/22/23 History pantoprazole 40 mg tablet,delayed 40 mg PO DAILY 02/22/23 02/22/23 History release venlafaxine 150 mg 150 mg PO BID 02/22/23 02/22/23 History capsule,extended release 24 hr vitamin E (dl, acetate) 180 mg 180 mg PO HS 02/22/23 02/22/23 History (400 unit) capsule Past Med/Surg History Medical History (Updated 02/22/23 @ 18:29 by Kiran Nieves DO) Degenerative disc disease Depression Diarrhea DM type 2 (diabetes mellitus, type 2) IDDM GERD (gastroesophageal reflux disease) History of colon polyps History of migraine History of sigmoidoscopy Hyperlipemia no meds Osteoarthritis Osteoporosis TMJ (temporomandibular joint disorder) Surgical History History of appendectomy History of arthroscopic knee surgery History of bilateral knee replacement History of colonoscopy History of tonsillectomy and adenoidectomy Slow to wake up after anesthesia Family History Other No family history of adverse response to anesthesia Social History Smoking Status: Former smoker Second Hand Exposure: No; Do You Dip or Chew Tobacco: No; Hx Alcohol Use: Yes Alcohol type: wine Hx Substance Use: No Preferred Language: Macedonian Communication Ability: Effective Real Time Operator Required: No Beliefs That Will Affect Care: None Current Living Situation: Alone Current Living Situation Comment: Independent living at [facility] Feels Safe at Home: Yes Assistive Devices: Glasses Review of Systems Review of Systems: Constitutional: no fever, sweats but has complaints of chills, Fatigue, myalgia Eyes: No diplopia, no worsening or blurred vision ENT: normal hearing, + sore throat, + loss of taste, no loss of smell Respiratory: + As per HPI, + cough, sputum, dyspnea on exertion Cardiovascular: No chest pain, tightness or palpitations Abdomen: No pain, nausea, vomiting, + diarrhea with loose stools x 1 today, no constipation, poor po intake Musculoskeletal: No joint pain, calf pain, swelling Neurologic: + generalied weakness, no numbness/tingling, or balance problems Psychiatric: No anxiety or depression Skin: No rash or itch Physical Exam Physical Exam: General: awake, alert, no apparent distress, appears ill Head: Normocephalic, atraumatic ENT: PERRL, EOMI, + erythematous pharynx, no exudate, mucous membranes slightly dry Chest: On 2 L via NS with o2 sats in the low 90s, + coarse breath sounds at bases bilaterally, no ronchi or wheezes Cardiac: Sinus tachy with HR in 90s, + faint LYNETTE, no JVD, normal peripheral pulses, good capillary refill Abdominal: NABS x 4 quadrants, soft, nondistended, nontender to palpation, no rebound or guarding Extremities: Normal inspection, no peripheral edema or erythema, calfs nontender to palpation Psych: Normal mood and affect Neuro: AAO x 3, strength intact bilaterally and rated 5/5, no motor deficits, speech is clear, no peripheral sensory deficits Results & Data Results & Data Vital Signs (Past 12 Hours) Vital Signs Temp Pulse Pulse Resp BP BP Pulse Ox 02/22/23 16:03 90 02/22/23 14:10 87 L 02/22/23 14:12 95 02/22/23 14:01 94 H 24 123/60 92 02/22/23 12:44 37.5 C 107 H 20 153/81 H 93 O2 Del Method O2 Flow Rate 02/22/23 16:03 02/22/23 14:10 Room Air 02/22/23 14:12 Nasal Cannula 2 02/22/23 14:01 Room Air 02/22/23 12:44 Room Air Laboratory Results 02/22/23 02/22/23 02/22/23 15:29 13:48 13:20 WBC RBC Hgb Hct MCV MCH MCHC RDW Std Deviation RDW Coeff of Joseph Plt Count MPV Immature Gran % (Auto) Neut % (Auto) Lymph % (Auto) [place] % (Auto) Eos % (Auto) Baso % (Auto) Neut # (Auto) Lymph # (Auto) [place] # (Auto) Eos # (Auto) Baso # (Auto) Immature Gran # (Auto) VBG pH 7.44 H VBG pCO2 36 L VBG pO2 39 VBG HCO3 25 VBG O2 Saturation 72.7 VBG Base Excess 0.7 Sodium Potassium Chloride Carbon Dioxide Anion Gap BUN Creatinine Est Cr Clr Drug Dosing Est GFR ( Amer) Est GFR (Non-Af Amer) BUN/Creatinine Ratio Glucose Calcium Total Bilirubin AST ALT Alkaline Phosphatase Troponin I High Sens Cancelled Total Protein Albumin Globulin Albumin/Globulin Ratio Adenovirus (PCR) B. pertussis DNA (PCR) B.parapertussis DNA PCR C. pneumoniae DNA (PCR) Coronavirus OC43 (PCR) Coronavirus HKU1 (PCR) Coronavirus 229E (PCR) SARS-CoV-2 (PCR) Coronavirus NL63 (PCR) Human Metapneumovir PCR Influenza Type A (PCR) Influenza Type B (PCR) M. pneumoniae (PCR) Parainfluenza 1 (PCR) Parainfluenza 2 (PCR) Parainfluenza 3 (PCR) Parainfluenza 4 (PCR) RSV (PCR) Entero/Rhino (PCR) Group A Strep (Molecular) Negative Group A Strep (PCR) 02/22/23 02/22/23 02/22/23 13:20 13:20 13:20 WBC RBC Hgb Hct MCV MCH MCHC RDW Std Deviation RDW Coeff of Joseph Plt Count MPV Immature Gran % (Auto) Neut % (Auto) Lymph % (Auto) [place] % (Auto) Eos % (Auto) Baso % (Auto) Neut # (Auto) Lymph # (Auto) [place] # (Auto) Eos # (Auto) Baso # (Auto) Immature Gran # (Auto) VBG pH VBG pCO2 VBG pO2 VBG HCO3 VBG O2 Saturation VBG Base Excess Sodium 130 L Potassium 3.9 Chloride 98 Carbon Dioxide 22 Anion Gap 10 BUN 15 Creatinine 0.70 Est Cr Clr Drug Dosing 44.3 Est GFR ( Amer) 91.6 Est GFR (Non-Af Amer) 79.0 BUN/Creatinine Ratio 21.4 H Glucose 322 H* Calcium 9.0 Total Bilirubin 0.4 AST 25 ALT 18 Alkaline Phosphatase 77 Troponin I High Sens 33.8 H Total Protein 6.6 Albumin 4.1 Globulin 2.5 Albumin/Globulin Ratio 1.6 Adenovirus (PCR) Not Detected B. pertussis DNA (PCR) Not Detected B.parapertussis DNA PCR Not Detected C. pneumoniae DNA (PCR) Not Detected Coronavirus OC43 (PCR) Not Detected Coronavirus HKU1 (PCR) DETECTED A* Coronavirus 229E (PCR) Not Detected SARS-CoV-2 (PCR) DETECTED A* Coronavirus NL63 (PCR) Not Detected Human Metapneumovir PCR Not Detected Influenza Type A (PCR) Not Detected Influenza Type B (PCR) Not Detected M. pneumoniae (PCR) Not Detected Parainfluenza 1 (PCR) Not Detected Parainfluenza 2 (PCR) Not Detected Parainfluenza 3 (PCR) Not Detected Parainfluenza 4 (PCR) Not Detected RSV (PCR) Not Detected Entero/Rhino (PCR) Not Detected Group A Strep (Molecular) Group A Strep (PCR) Cancelled 02/22/23 13:20 WBC 6.69 RBC 4.89 Hgb 14.3 Hct 41.6 MCV 85.1 MCH 29.2 MCHC 34.4 RDW Std Deviation 42.9 RDW Coeff of Joseph 13.8 Plt Count 202 MPV 10.4 Immature Gran % (Auto) 0.3 Neut % (Auto) 78.5 Lymph % (Auto) 11.4 [place] % (Auto) 9.7 Eos % (Auto) 0.0 Baso % (Auto) 0.1 Neut # (Auto) 5.25 Lymph # (Auto) 0.76 L [place] # (Auto) 0.65 H Eos # (Auto) 0.00 Baso # (Auto) 0.01 Immature Gran # (Auto) 0.02 VBG pH VBG pCO2 VBG pO2 VBG HCO3 VBG O2 Saturation VBG Base Excess Sodium Potassium Chloride Carbon Dioxide Anion Gap BUN Creatinine Est Cr Clr Drug Dosing Est GFR ( Amer) Est GFR (Non-Af Amer) BUN/Creatinine Ratio Glucose Calcium Total Bilirubin AST ALT Alkaline Phosphatase Troponin I High Sens Total Protein Albumin Globulin Albumin/Globulin Ratio Adenovirus (PCR) B. pertussis DNA (PCR) B.parapertussis DNA PCR C. pneumoniae DNA (PCR) Coronavirus OC43 (PCR) Coronavirus HKU1 (PCR) Coronavirus 229E (PCR) SARS-CoV-2 (PCR) Coronavirus NL63 (PCR) Human Metapneumovir PCR Influenza Type A (PCR) Influenza Type B (PCR) M. pneumoniae (PCR) Parainfluenza 1 (PCR) Parainfluenza 2 (PCR) Parainfluenza 3 (PCR) Parainfluenza 4 (PCR) RSV (PCR) Entero/Rhino (PCR) Group A Strep (Molecular) Group A Strep (PCR) Diagnostic Findings Chest X-Ray 02/22/23 12:50 SINGLE VIEW CHEST CLINICAL HISTORY: Cough. Illness FINDINGS: An AP, portable, upright chest radiograph is compared to study dated 02/16/2018. The cardiomediastinal silhouette is unremarkable noting atherosclerotic calcification of the thoracic aorta. Chronic interstitial thickening is similar to previous. There is bibasilar scarring/atelectasis. No airspace consolidation or large pleural effusion is identified. No pneumothorax is seen. The skeletal structures are osteopenic. The bony thorax is grossly intact. An indeterminate ovoid metallic foreign body projects over the upper abdomen. IMPRESSION: 1. No acute cardiopulmonary abnormality. 2. An indeterminant metallic foreign body projects over the upper abdomen. Correlate clinically. ACT 112: Negative or not required by law. Electronically signed by: Vicente Nunez M.D. 02/22/2023 1:07 PM Chest CTA 02/22/23 13:50 CT ANGIOGRAPHY OF THE CHEST, PULMONARY EMBOLUS PROTOCOL CLINICAL HISTORY: Shortness of breath. Evaluate for pulmonary embolus. COMPARISON STUDY: Chest radiographs February 16, 2018 and February 22, 2023. TECHNIQUE: Following IV administration of 120 mL of Optiray, helical axial images of the chest were obtained utilizing the pulmonary embolus protocol. Maximal intensity projections and sagittal and coronal reformats were viewed on an independent 3D workstation. IV contrast was administered without complicatio n. Automated exposure control was utilized for the study. A dose lowering technique was utilized adhering to the principles of ALARA. CT DOSE: 437.36 mGycm FINDINGS: No pulmonary emboli are identified although the segmental and subsegmental pulmonary arteries within the lower lobes are suboptimally assessed due to respiratory motion. There is no thoracic aortic dissection. There is no p ericardial effusion. Mild cardiomegaly is noted. A few prominent AP window lymph nodes measure up to 1 x 0.8 cm. No pneumothorax or pleural effusion is present. The lungs are suboptimally assessed due to respiratory motion. There are small multifocal subpleural groundglass opacities. No confluent consolidation is identified.Visualized portions of the upper abdomen are unremarkable. There is a small hiatal hernia. IMPRESSION: 1. No pulmonary emboli identified. However, evaluation of the lower lobe segmental and subsegmental pulmonary arteries is significantly compromised by respiratory motion. 2. Multifocal subpleural groundglass opacities. These favor an infectious etiology. 3. Mild cardiomegaly. ACT 112: Negative or not required by law. Electronically signed by: Justo Rai M.D. 02/22/2023 2:56 PM Code Status & VTE Plan Code Status Full code - Discussed with the patient at bedside Supervising Physician Co-Signing Physician Notes Patient is a 89-year-old female with history of diabetes, GERD and other medical problems presents with history of worsening shortness of breath associated with cough, generalized weakness and tiredness. She recently had a trip to [place]. Currently denies any chest pain, dizziness, nausea, vomiting, abdominal pain. Please review HPI for complete details of presentation. I personally reviewed blood work and imaging studies. Serology positive for coronavirus HKU 1 and SARS-CoV-2. She is mildly hypoxic while in ED. Also noted hyponatremia 130 and glucose elevated at 322, mild troponin elevation 33.8. On exam patient is moderately built and nourished, no apparent distress, normocephalic atraumatic, EOMI, decreased coarse breath sounds, no obvious murmur, no pedal edema, abdomen soft, nontender, normal bowel sounds, alert, awake, oriented, grossly no focal deficits. Patient is admitted for management of COVID-19 pneumonia and: H KU 1 virus infection. Procalcitonin within normal limits. CRP elevated. Continue supplemental oxygen as needed. No indication for remdesivir currently given onset of symptoms. We will continue IV Decadron. Nebs as needed. Received IV fluids for hyponatremia. Monitor sodium levels. I personally reviewed the record. Patient is interviewed and examined at bedside. Patient's care is coordinated with Geno Guillory PA-C. Please refer to the documentation above for details of patient's presentation and for discussion of other issues.
[2023-02-22] MEDS ORDERED: COUGH DROP (SUGAR FREE) LOZ 24 LOZ/1 BOX BUCCAL PRN (16:57)
[2023-02-22] MEDS ORDERED: ALBUTEROL 0.083% NEBU SOLN 3 ML VIAL NEB PRN (17:05)
[2023-02-22] MEDS ORDERED: COUGH DROP (SUGAR FREE) LOZ 24 LOZ/1 BOX BUCCAL STA (17:14)
[2023-02-22] MEDS ORDERED: guaiFENesin/DEXTROM SYRUP 200MG/20MG 10ML UDC PO STA (17:15)
[2023-02-22] MEDS ORDERED: INSULIN ASPART PER UNIT CHARGE SC STA (17:22)
[2023-02-22] MEDS ORDERED: CARBOHYDRATES FOR HYPOGLYCEMIA PO PRN (18:45)
[2023-02-22] MEDS ORDERED: GLUCOSE 10 TAB/TUBE PO PRN (18:45)
[2023-02-22] MEDS ORDERED: ACETAMINOPHEN 325 MG TAB PO PRN (18:45)
[2023-02-22] MEDS ORDERED: ONDANSETRON INJ 2 MG/ML 2 ML VIAL IV PRN (18:45)
[2023-02-22] MEDS ORDERED: HYDROcodone/HOMATROPINE SYRUP 5MG/1.5MG 5ML UDP PO PRN (18:45)
[2023-02-22] MEDS ORDERED: GLUCOSE 40% GEL 15 GM TUBE PO PRN (18:45)
[2023-02-22] MEDS ORDERED: GLUCAGON FOR INJ 1 MG VIAL SQ PRN (18:45)
[2023-02-22] MEDS ORDERED: DEXTROSE 50% 50 ML SYRINGE IV PRN (18:45)
[2023-02-22] MEDS ORDERED: PHARMACY GLYCEMIC MGMT CONSULT PRN (18:45)
[2023-02-22 20:00] LABS: C Reactive Protein 9.67 mg/dl (0-0.5)
[2023-02-22] MEDS: ALBUTEROL HFA 8 GM INHALER INH SCH ×2 (20:24)
[2023-02-22] MEDS ORDERED: CALCIUM CARBONATE 500 MG CHEWABLE TAB PO STA (20:24)
[2023-02-22] MEDS: busPIRone 5 MG TAB PO SCH (20:50)
[2023-02-22] MEDS: BENZONATATE 100 MG CAPSULE PO SCH (20:51)
[2023-02-22] MEDS: MELATONIN 3 MG TAB PO SCH (20:52)
[2023-02-22] MEDS: ENOXAPARIN INJ 40 MG/0.4 ML SYR SQ SCH (20:53)
[2023-02-22 20:55] LABS: BUN Creatinine Ratio 21.4 (10-20); Calcium 9.7 mg/dl (8.6-10.3); Creatinine Clr Calc Pharmacy 44.3 ml/min; Est GFR (African American) 91.6 ml/min; Potassium 3.7 mmol/L (3.5-5.1)
[2023-02-22] MEDS: guaiFENesin 600 MG TABCR PO SCH (20:55)
[2023-02-22] MEDS: TOCOPHERYL, DL-ALPHA 400 UNITS 180 MG CAP PO SCH (20:58)
[2023-02-22] MEDS: FAMOTIDINE 20 MG TAB PO SCH (20:58)
[2023-02-22] MEDS: VENLAFAXINE HCL XR 150 MG CAPXR PO SCH (20:59)
[2023-02-22] MEDS: MIRTAZAPINE TAB 15 MG TAB PO SCH (20:59)
[2023-02-22 21:00] LABS: Troponin I High Sensitivity 38.4 pg/ml (0-14)
[2023-02-22] MEDS ORDERED: guaiFENesin 600 MG TABCR PO SCH (21:00)
[2023-02-22] MEDS ORDERED: NSS + 20MEQ KCL 20 MEQ/1,000 ML BAG IV ONE (21:08)
[2023-02-22] MEDS: LANTUS PER UNIT CHARGE SC SCH (21:58)
[2023-02-22] MEDS: INSULIN ASPART PER UNIT CHARGE SC SCH (21:59)
[2023-02-22] MEDS: DOXYCYCLINE HYCLATE 100 MG CAP PO SCH (22:04)
--- NOTE | 2023-02-22 22:36 | Electrocardiogram Report ---
Test Reason : Blood Pressure : / mmHG Vent. Rate : 100 BPM Atrial Rate : 100 BPM P-R Int : 132 ms QRS Dur : 116 ms QT Int : 344 ms P-R-T Axes : 048 -03 062 degrees QTc Int : 443 ms Normal sinus rhythm Possible Left atrial enlargement Borderline ECG When compared with ECG of 16-FEB-2018 22:17, No significant change was found Confirmed by Marcelo Prajapati ([id number]) on 02/22/2023 10:35:50 PM Referred By: Confirmed By:Marcelo Prajapati
[2023-02-22] MEDS ORDERED: PANTOprazole 40 MG TAB PO STA (23:03)
[2023-02-23 06:48] LABS: Appearance Urine Clear (Clear); Bacteria Urine Automated Negative (Negative); Bilirubin Urine Negative (Negative); Blood Urine Negative (Negative); Cast Urine Automated 0 /lpf (0-5); Color Urine Yellow; Glucose Urine UA 3+ (Negative); Ketones Urine Negative (Negative); Leukocyte Esterase Urine Negative (Negative); Nitrite Urine Negative (Negative); Protein Urine 1+ (Negative); RBC Urine Automated 0-4 /hpf (0-4); Specific Gravity Urine > 1.045 (1.000-1.030); Urobilinogen Urine Negative (Negative)
[2023-02-23] MEDS: ALBUTEROL HFA 8 GM INHALER INH SCH ×2 (07:14→11:11)
[2023-02-23 07:45] LABS: Hematocrit (blood only) 39.8 % (37.0-47.0); Hemoglobin 13.5 g/dl (12.0-16.0); Mean Corpuscular Hemoglobin 29.2 pg (25.0-34.0); Mean Corpuscular Hgb Conc 33.9 g/dL (32.0-36.0); Mean Corpuscular Volume 86.1 fL (80.0-100.0); Mean Platelet Volume 10.2 fL (9.4-12.4); Platelet Count 199 K/uL (130-400); RDW Coefficient of Variation 14.1 % (11.5-14.5); RDW Standard Deviation 43.8 fL (36.4-46.3); Red Blood Count 4.62 M/uL (4.20-5.40); White Blood Count 6.13 K/ul (4.8-10.8)
[2023-02-23 08:27] LABS: BUN Creatinine Ratio 24.2 (10-20); Calcium 8.8 mg/dl (8.6-10.3); Chol HDL Ratio 3.7 (0-5); Est GFR (African American) 93.4 ml/min; Est GFR (Non-African American) 80.6 ml/min; Magnesium 1.8 mg/dl (1.7-2.4); Potassium 4.3 mmol/L (3.5-5.1)
[2023-02-23] MEDS: MULTIVITAMIN TAB PO SCH (08:28)
[2023-02-23] MEDS: busPIRone 5 MG TAB PO SCH ×2 (08:28→20:12)
[2023-02-23] MEDS: VENLAFAXINE HCL XR 150 MG CAPXR PO SCH ×2 (08:28→20:10)
[2023-02-23] MEDS: PANTOprazole 40 MG TAB PO SCH (08:28)
[2023-02-23] MEDS: BENZONATATE 100 MG CAPSULE PO SCH ×3 (08:29→20:09)
[2023-02-23] MEDS: FAMOTIDINE 20 MG TAB PO SCH ×2 (08:29→20:10)
[2023-02-23] MEDS: guaiFENesin 600 MG TABCR PO SCH ×2 (08:29→20:10)
[2023-02-23] MEDS: CETIRIZINE HCL 10 MG TABLET PO SCH (08:29)
[2023-02-23] MEDS: DOXYCYCLINE HYCLATE 100 MG CAP PO SCH ×2 (08:30→20:12)
[2023-02-23 08:35] LABS: Estimated Average Glucose 189 mg/dl; Hemoglobin A1C 8.2 % (4.5-5.6)
[2023-02-23] MEDS: dexAMETHasone 6 MG in SYRINGE 0 ML IV SCH (08:59)
[2023-02-23] MEDS ORDERED: INSULIN HUMAN NPH SC SCH (09:00)
[2023-02-23] MEDS: INSULIN ASPART PER UNIT CHARGE SC SCH ×4 (09:15→22:11)
--- NOTE | 2023-02-23 10:05 | Pharmacy Report ---
Pharmacy Glycemic Short Note 2 - Date of Service February 23, 2023 - Glycemic Short BSG Results (Last 24 hours): 02/22/23 02/22/23 02/22/23 13:20 20:02 20:49 Glucose 322 H* 203 H POC Glucose 188 H 02/23/23 02/23/23 02/23/23 07:08 08:02 08:13 Glucose 306 H* POC Glucose 296 H 284 H OUTPATIENT ANTIDIABETIC REGIMEN: * Lantus 30 units HS * HbA1C = 8.2% (02/23/23) ASSESSMENT: * Ms Rodriguez is an 83 y/o F with a PMH of T2DM who presents with Covid. * In the ER yesterday (02/23/23), she was given dexamethasone 8 mg. BSGs were 322-203-188 mg/dL. She received her home dose of Lantus 30 units HS. * Fasting this AM was 296 mg/dL - this is secondary to dexamethasone yesterday. * Will continue Lantus 30 units HS (this is full weight-based stress of 3). * NPH 25 units SQ daily with dexamethasone 6 mg IV daily (this is 0.4 units/kg). * Will use tight Novolog coverage with steroids. PLAN FOR INPATIENT GLYCEMIC CONTROL: * Basal insulin * Lantus 30 units SQ HS * NPH 25 units daily with dexamethasone 6 mg IV daily * Bolus insulin * NovoLog per scale ACHS or Q6hrs while NPO * Goal Range: Low 110 mg/dL - High 140 mg/dL * Correction Factor: 25 mg/dL/unit * Nutritional / Prandial insulin per carb ratio of 1 unit per 6 grams CHO consumed
[2023-02-23] MEDS ORDERED: ALBUTEROL HFA 8 GM INHALER INH PRN (13:07)
--- NOTE | 2023-02-23 15:29 | Hospitalist Progress Note ---
Date of Service February 23, 2023 Assessment & Plan (1) Pneumonia due to COVID-19 virus: (2) Acute respiratory failure with hypoxia: Plan: Acute respiratory failure with hypoxia COVID-19 pneumonia --CTA:No pulmonary emboli identified. However, evaluation of the lower lobe segmental and subsegmental pulmonary arteries is significantly compromised by respiratory motion. Multifocal subpleural groundglass opacities. These favor an infectious etiology. Mild cardiomegaly. Procalcitonin less than 0.05 CRP 9.67 Mild troponin elevation secondary to above Likely would not benefit from remdesivir given onset of symptoms Nebs, antitussives as needed Supplemental oxygen to keep sats greater than 90% Continue IV Decadron Continue other supportive care (3) Hyponatremia: Plan: Likely due to dehydration from poor oral intake Received IV fluids Monitor sodium levels (4) DM type 2 (diabetes mellitus, type 2): Plan: HbA1c 8.2 Continue insulin per protocol Monitor blood glucose levels Appreciate glycemic pharmacy input (5) GERD (gastroesophageal reflux disease): Plan: -Continue pantoprazole (6) Hyperlipemia: Plan: Total cholesterol mildly elevated LDL 138 Currently not on statins DVT Px: Lovenox SQ CODE STATUS: Full code Disposition PT OT prior to discharge Admission and Anticipated Discharge Date Admission Date: February 22, 2023 Subjective Patient is seen and examined at bedside States having cough with no expectoration Also reports sore throat, poor appetite Has generalized weakness and tiredness Discussed with patient's family at bedside Denies any chest pain, dyspnea Saturating well on room air No other complaints Review of Systems Review of Systems: All systems reviewed & are unremarkable except as noted in Subjective Physical Exam Physical Exam: Physical Exam: Vitals signs as noted above General Appearance:Moderately built and nourished, no apparent distress Head: normocephalic, Atraumatic Eyes: normal inspection, EOMI Neck: supple, Trachea midline Respiratory/Chest: Decreased breath sounds, CTA, No accessory muscle use Cardiovascular: S1, S2, No murmur Abdomen/GI:Soft, Non tender, Bowel sounds present Extremities/Musculoskeletal:normal inspection, no edema Neurologic/Psych:AAOX3, grossly no focal neurological deficits Skin: normal color, warm Results & Data Results & Data Vital Signs (Past 12 Hours) Vital Signs Temp Pulse Pulse Resp BP Pulse Ox O2 Del Method 02/23/23 14:50 85 02/23/23 12:40 36.2 C L 95 Room Air 02/23/23 12:11 36.9 C 70 18 129/75 93 Room Air 02/23/23 11:12 70 18 93 Room Air 02/23/23 10:15 Nasal Cannula 02/23/23 08:17 36.8 C 75 20 117/71 93 Nasal Cannula 02/23/23 07:00 82 02/23/23 07:14 74 16 95 Nasal Cannula O2 Flow Rate 02/23/23 14:50 02/23/23 12:40 02/23/23 12:11 02/23/23 11:12 02/23/23 10:15 2 02/23/23 08:17 2 02/23/23 07:00 02/23/23 07:14 2 Laboratory Results Short CBC 02/23/23 Range/Units 07:08 WBC 6.13 (4.8-10.8) K/ul Hgb 13.5 (12.0-16.0) g/dl Hct 39.8 (37.0-47.0) % Plt Count 199 (130-400) K/uL BMP 02/22/23 02/23/23 20:02 07:08 Sodium 132 L 134 L Potassium 3.7 4.3 Chloride 98 105 Carbon Dioxide 24 21 BUN 15 16 Creatinine 0.70 0.66 Glucose 203 H 306 H* Calcium 9.7 8.8 Urine 02/22/23 Range/Units 06:00 Urine Color Yellow Urine Appearance Clear (Clear) Urine pH 6.0 (4.5-7.5) Ur Specific [place] > 1.045 H (1.000-1.030) Urine Protein 1+ H (Negative) Urine Glucose (UA) 3+ H (Negative)
[2023-02-23] MEDS: ENOXAPARIN INJ 40 MG/0.4 ML SYR SQ SCH (20:10)
[2023-02-23] MEDS: TOCOPHERYL, DL-ALPHA 400 UNITS 180 MG CAP PO SCH (20:10)
[2023-02-23] MEDS: MELATONIN 3 MG TAB PO SCH (20:11)
[2023-02-23] MEDS: MIRTAZAPINE TAB 15 MG TAB PO SCH (20:12)
[2023-02-23] MEDS: LANTUS PER UNIT CHARGE SC SCH (22:11)
[2023-02-24 06:26] LABS: BUN Creatinine Ratio 41.2 (10-20); C Reactive Protein 8.17 mg/dl (0-0.5); Calcium 9.3 mg/dl (8.6-10.3); Creatinine Clr Calc Pharmacy 45.6 ml/min; Est GFR (African American) 92.4 ml/min; Est GFR (Non-African American) 79.8 ml/min; Potassium 3.9 mmol/L (3.5-5.1)
[2023-02-24] MEDS ORDERED: INSULIN HUMAN NPH SC SCH (09:00)
[2023-02-24] MEDS: FAMOTIDINE 20 MG TAB PO SCH ×2 (09:05→21:40)
[2023-02-24] MEDS: BENZONATATE 100 MG CAPSULE PO SCH ×3 (09:06→21:38)
[2023-02-24] MEDS: busPIRone 5 MG TAB PO SCH ×2 (09:06→21:39)
[2023-02-24] MEDS: DOXYCYCLINE HYCLATE 100 MG CAP PO SCH ×2 (09:06→21:39)
[2023-02-24] MEDS: guaiFENesin 600 MG TABCR PO SCH ×2 (09:07→21:39)
[2023-02-24] MEDS: VENLAFAXINE HCL XR 150 MG CAPXR PO SCH ×2 (09:07→21:41)
[2023-02-24] MEDS: MULTIVITAMIN TAB PO SCH (09:07)
[2023-02-24] MEDS: CETIRIZINE HCL 10 MG TABLET PO SCH (09:07)
[2023-02-24] MEDS: dexAMETHasone 6 MG in SYRINGE 0 ML IV SCH (09:08)
[2023-02-24] MEDS: PANTOprazole 40 MG TAB PO SCH (09:08)
[2023-02-24] MEDS: INSULIN ASPART PER UNIT CHARGE SC SCH ×4 (09:37→21:44)
--- NOTE | 2023-02-24 10:31 | Pharmacy Report ---
Pharmacy Glycemic Short Note 2 - Date of Service February 24, 2023 - Glycemic Short BSG Results (Last 24 hours): 02/23/23 02/23/23 02/23/23 12:07 16:50 20:08 Glucose POC Glucose 301 H* 228 H 111 H 02/24/23 02/24/23 05:29 08:09 Glucose 61 L POC Glucose 76 OUTPATIENT ANTIDIABETIC REGIMEN: * Lantus 30 units HS * HbA1C = 8.2% (02/23/23) ASSESSMENT: 02/24/23 * Patient's BSGs yesterday were 225-696-204-111 mg/dL. Patient received 115 units yesterday (55 units of basal and 60 units of bolus) * Patient's fasting on the PRP was 61 and on POC was 76 mg/dL. * This was most likely secondary to Lantus dose yesterday evening. Reduce Lantus by 30% to 20 units. * BSGs trended downwards throughout the day. Reduce NPH slightly. * Will loosen CF and continue CR since steroids are continuing. BACKGROUND * Ms Rodriguez is an 83 y/o F with a PMH of T2DM who presents with Covid. * In the ER yesterday (02/23/23), she was given dexamethasone 8 mg. BSGs were 322-203-188 mg/dL. She received her home dose of Lantus 30 units HS. * Fasting this AM was 296 mg/dL - this is secondary to dexamethasone yesterday. * Will continue Lantus 30 units HS (this is full weight-based stress of 3). * NPH 25 units SQ daily with dexamethasone 6 mg IV daily (this is 0.4 units/kg). * Will use tight Novolog coverage with steroids. PLAN FOR INPATIENT GLYCEMIC CONTROL: * Basal insulin * Lantus 20 units SQ HS * NPH 20 units daily with dexamethasone 6 mg IV daily * Bolus insulin * NovoLog per scale ACHS or Q6hrs while NPO * Goal Range: Low 110 mg/dL - High 140 mg/dL * Correction Factor: 30 mg/dL/unit * Nutritional / Prandial insulin per carb ratio of 1 unit per 5 grams CHO consumed
--- NOTE | 2023-02-24 13:52 | Hospitalist Progress Note ---
Date of Service February 24, 2023 Assessment & Plan (1) Pneumonia due to COVID-19 virus: (2) Acute respiratory failure with hypoxia: Plan: Acute respiratory failure with hypoxia COVID-19 pneumonia --CTA:No pulmonary emboli identified. However, evaluation of the lower lobe segmental and subsegmental pulmonary arteries is significantly compromised by respiratory motion. Multifocal subpleural groundglass opacities. These favor an infectious etiology. Mild cardiomegaly. Procalcitonin less than 0.05 CRP 9.67 Mild troponin elevation secondary to above Likely would not benefit from remdesivir given onset of symptoms Weaned off of supplemental oxygen Nebs, antitussives as needed Continue IV Decadron CRP trending down Continue doxycycline Saturating well on room air Continue pulmonary hygiene (3) Hyponatremia: Plan: Likely due to dehydration from poor oral intake Received IV fluids Monitor sodium levels (4) DM type 2 (diabetes mellitus, type 2): Plan: HbA1c 8.2 Continue insulin per protocol Monitor blood glucose levels Appreciate glycemic pharmacy input Adjust insulin as required (5) GERD (gastroesophageal reflux disease): Plan: -Continue pantoprazole (6) Hyperlipemia: Plan: Total cholesterol mildly elevated LDL 138 Currently not on statins DVT Px: Lovenox SQ CODE STATUS: Full code Disposition PT OT prior to discharge Admission and Anticipated Discharge Date Admission Date: February 22, 2023 Subjective Patient is seen and examined at bedside States feeling better today Has cough with yellowish expectoration Feels some chest congestion Sore throat better today Feels tired and exhausted No new complaints Denies any chest pain, dyspnea, dizziness, nausea, vomiting, abdominal pain Discussed with patient's family at bedside Saturating well on room air Review of Systems Review of Systems: All systems reviewed & are unremarkable except as noted in Subjective Physical Exam Physical Exam: Physical Exam: Vitals signs as noted above General Appearance:Moderately built and nourished, no apparent distress Head: normocephalic, Atraumatic Eyes: normal inspection, EOMI Neck: supple, Trachea midline Respiratory/Chest: Decreased breath sounds, CTA, No accessory muscle use Cardiovascular: S1, S2, No murmur Abdomen/GI:Soft, Non tender, Bowel sounds present Extremities/Musculoskeletal:normal inspection, no edema Neurologic/Psych:AAOX3, grossly no focal neurological deficits Skin: normal color, warm Results & Data Results & Data Vital Signs (Past 12 Hours) Vital Signs Temp Pulse Resp BP Pulse Ox O2 Del Method 02/24/23 12:12 36.7 C 79 20 130/80 94 Room Air 02/24/23 08:00 36.7 C 75 20 144/74 H 96 Room Air 02/24/23 03:37 36.5 C 72 16 135/76 96 Room Air Laboratory Results [facility] 02/24/23 05:29 Sodium 139 Potassium 3.9 Chloride 109 H Carbon Dioxide 22 BUN 28 H Creatinine 0.68 Glucose 61 L Calcium 9.3
[2023-02-24] MEDS ORDERED: LANTUS PER UNIT CHARGE SC SCH (21:00)
[2023-02-24] MEDS: TOCOPHERYL, DL-ALPHA 400 UNITS 180 MG CAP PO SCH (21:39)
[2023-02-24] MEDS: MELATONIN 3 MG TAB PO SCH (21:40)
[2023-02-24] MEDS: MIRTAZAPINE TAB 15 MG TAB PO SCH (21:41)
[2023-02-24] MEDS: ENOXAPARIN INJ 40 MG/0.4 ML SYR SQ SCH (21:51)
[2023-02-25 07:13] LABS: Calcium 9.2 mg/dl (8.6-10.3); Est GFR (African American) 95.8 ml/min; Est GFR (Non-African American) 82.7 ml/min; Magnesium 1.9 mg/dl (1.7-2.4); Potassium 3.5 mmol/L (3.5-5.1)
[2023-02-25] MEDS: BENZONATATE 100 MG CAPSULE PO SCH (08:24)
[2023-02-25] MEDS: busPIRone 5 MG TAB PO SCH (08:24)
[2023-02-25] MEDS: guaiFENesin 600 MG TABCR PO SCH (08:25)
[2023-02-25] MEDS: FAMOTIDINE 20 MG TAB PO SCH (08:25)
[2023-02-25] MEDS: VENLAFAXINE HCL XR 150 MG CAPXR PO SCH (08:25)
[2023-02-25] MEDS: PANTOprazole 40 MG TAB PO SCH (08:26)
[2023-02-25] MEDS: CETIRIZINE HCL 10 MG TABLET PO SCH (08:26)
[2023-02-25] MEDS: dexAMETHasone 6 MG in SYRINGE 0 ML IV SCH (08:26)
[2023-02-25] MEDS: DOXYCYCLINE HYCLATE 100 MG CAP PO SCH (08:26)
[2023-02-25] MEDS: MULTIVITAMIN TAB PO SCH (08:26)
[2023-02-25] MEDS: INSULIN ASPART PER UNIT CHARGE SC SCH ×2 (08:30→12:09)
[2023-02-25] MEDS ORDERED: INSULIN HUMAN NPH SC SCH (09:00)
--- NOTE | 2023-02-25 12:02 | Pharmacy Report ---
Pharmacy Glycemic Short Note 2 - Date of Service February 25, 2023 - Glycemic Short BSG Results (Last 24 hours): 02/24/23 02/24/23 02/24/23 12:10 16:48 16:49 Glucose POC Glucose 103 H 60 L* 64 L* 02/24/23 02/24/23 02/25/23 17:21 20:30 06:39 Glucose 138 H POC Glucose 81 178 H 02/25/23 02/25/23 11:45 11:45 Glucose POC Glucose 66 L* 62 L* OUTPATIENT ANTIDIABETIC REGIMEN: * Lantus 30 units HS * HbA1C = 8.2% (02/23/23) ASSESSMENT: 02/25/23 * Patient insulin requirements decreasing over last 24 hours, despite continued dexamethasone IV * Patient received total of 67 units of insulin yesterday, of which 20 units were NPH to cover steroids and 20 units were basal at HS * Patient's BSGs trending down yesterday afternoon, will decrease NPH by ~50% this morning and loosen CR * Lunch BSG low at lunch today despite loosening of insulin. Will hold further NPH and remove CR for rest of day * Will have a decreased scale on for Lantus at HS 10-15 units 02/24/23 * Patient's BSGs yesterday were [phone] mg/dL. Patient received 115 units yesterday (55 units of basal and 60 units of bolus) * Patient's fasting on the PRP was 61 and on POC was 76 mg/dL. * This was most likely secondary to Lantus dose yesterday evening. Reduce Lantus by 30% to 20 units. * BSGs trended downwards throughout the day. Reduce NPH slightly. * Will loosen CF and continue CR since steroids are continuing. BACKGROUND * Ms Rodriguez is an 83 y/o F with a PMH of T2DM who presents with Covid. * In the ER yesterday (02/23/23), she was given dexamethasone 8 mg. BSGs were 322-203-188 mg/dL. She received her home dose of Lantus 30 units HS. * Fasting this AM was 296 mg/dL - this is secondary to dexamethasone yesterday. * Will continue Lantus 30 units HS (this is full weight-based stress of 3). * NPH 25 units SQ daily with dexamethasone 6 mg IV daily (this is 0.4 units/kg). * Will use tight Novolog coverage with steroids. PLAN FOR INPATIENT GLYCEMIC CONTROL: * Basal insulin * Lantus 10-15 units SQ HS * NPH 10 units daily with dexamethasone 6 mg IV daily - d/c further orders for 02/26 * Bolus insulin * NovoLog per scale ACHS or Q6hrs while NPO * Goal Range: Low 110 mg/dL - High 140 mg/dL * Correction Factor: 30 mg/dL/unit * Nutritional / Prandial insulin per carb ratio of 1 unit per -- grams CHO consumed
--- NOTE | 2023-02-25 12:42 | Hospitalist Progress Note ---
Date of Service February 25, 2023 Assessment & Plan (1) Pneumonia due to COVID-19 virus: (2) Acute respiratory failure with hypoxia: Plan: Acute respiratory failure with hypoxia COVID-19 pneumonia --CTA:No pulmonary emboli identified. However, evaluation of the lower lobe segmental and subsegmental pulmonary arteries is significantly compromised by respiratory motion. Multifocal subpleural groundglass opacities. These favor an infectious etiology. Mild cardiomegaly. Procalcitonin less than 0.05 CRP 9.67 Mild troponin elevation secondary to above Likely would not benefit from remdesivir given onset of symptoms Weaned off of supplemental oxygen Nebs, antitussives as needed Received IV Decadron CRP trending down Continue doxycycline Saturating well on room air Continue pulmonary hygiene Plan to discharge home today (3) Hyponatremia: Plan: Likely due to dehydration from poor oral intake Received IV fluids Monitor sodium levels Sodium levels normalized (4) DM type 2 (diabetes mellitus, type 2): Plan: HbA1c 8.2 Continue insulin per protocol Monitor blood glucose levels Appreciate glycemic pharmacy input Adjust insulin as required (5) GERD (gastroesophageal reflux disease): Plan: -Continue pantoprazole (6) Hyperlipemia: Plan: Total cholesterol mildly elevated LDL 138 Currently not on statins DVT Px: Lovenox SQ CODE STATUS: Full code Disposition PT OT: Recommends return Home Admission and Anticipated Discharge Date Admission Date: February 22, 2023 Subjective Patient is seen and examined at bedside Doing well today No new complaints Less cough today Sore throat improving Weakness improving Denies any chest pain, dyspnea, dizziness, nausea, vomiting, abdominal pain Discussed with patient's family at bedside Saturating well on room air Prefers to be discharge home today Review of Systems Review of Systems: All systems reviewed & are unremarkable except as noted in Subjective Physical Exam Physical Exam: Physical Exam: Vitals signs as noted above General Appearance:Moderately built and nourished, no apparent distress Head: normocephalic, Atraumatic Eyes: normal inspection, EOMI Neck: supple, Trachea midline Respiratory/Chest: Decreased breath sounds, minimal basal crackles, No accessory muscle use Cardiovascular: S1, S2, No murmur Abdomen/GI:Soft, Non tender, Bowel sounds present Extremities/Musculoskeletal:normal inspection, no edema Neurologic/Psych:AAOX3, grossly no focal neurological deficits Skin: normal color, warm Results & Data Results & Data Vital Signs (Past 12 Hours) Vital Signs Temp Pulse Resp BP Pulse Ox O2 Del Method 02/25/23 08:30 Room Air 02/25/23 07:25 36.6 C 75 18 133/67 98 Room Air Laboratory Results [facility] 02/25/23 06:39 Sodium 140 Potassium 3.5 Chloride 107 Carbon Dioxide 24 BUN 25 H Creatinine 0.61 Glucose 138 H Calcium 9.2
--- NOTE | 2023-02-25 12:53 | Discharge Summary ---
Date of Service February 25, 2023 Admission HPI Per Admitting Provider This is a 83-year-old female with PMHx of DM type II, GERD, vitamin D deficiency, MDD who presents to the hospital with worsening shortness of breath, cough, and respiratory complaints. She recently went on a trip to [place] for a total of 3 weeks, and returned this on Saturday02/19/23. After her arrival [place] the [place], she was notified that somebody within their group was positive for COVID. Pt states she noticed that she had worsening shortness of breath with walking up hills that in [place] which started over a week ago. She took two separate covid nasal swab tests while there which were negative and even saw a doctor due to her complaints. Symptoms have worsened over the past 3 to 4 days including cough with green-yellow productive sputum worsening, fatigue, myalgia, very sore throat 1 day. She denies fever, but admits to chills with shaking. Pt has slept nearly nonstop in the past 3 days. Pt reports her sense of taste is gone, but can smell the detergent on her blanket in bed currently . Her po intake has been very poor. She is taking her insulin as directed however with the 26 U QPM. Pt didn't take any of her other medications today. Pt has been vaccinated x 4 shots. She reports her last Booster was whenever it came out, last fall. Pt reports being generally very healthy, and hasn't been in a hospital at all. She hasn't taken any over the counter medications or even tylenol at home for her symptoms. She lives alone with her two cats at [facility] [place] [facility]. Her daughter Jessica, brought her here. Patient is found to be positive for COVID HKU-1 and COVID-19. COVID-pneumonia seen on CT of the chest, and pt was hypoxic upon presentation to the ER with O2 sats at 87% now requiring 2 L via NC. She has received an albuterol inhaler treatment with some improvement. CTA of the chest is negative for any pulmonary embolism. Admission Exam Per Admitting Provider Physical Exam Physical Exam: General: awake, alert, no apparent distress, appears ill Head: Normocephalic, atraumatic ENT: PERRL, EOMI, + erythematous pharynx, no exudate, mucous membranes slightly dry Chest: On 2 L via NS with o2 sats in the low 90s, + coarse breath sounds at bases bilaterally, no ronchi or wheezes Cardiac: Sinus tachy with HR in 90s, + faint LYNETTE, no JVD, normal peripheral pulses, good capillary refill Abdominal: NABS x 4 quadrants, soft, nondistended, nontender to palpation, no rebound or guarding Extremities: Normal inspection, no peripheral edema or erythema, calfs nontender to palpation Psych: Normal mood and affect Neuro: AAO x 3, strength intact bilaterally and rated 5/5, no motor deficits, speech is clear, no peripheral sensory deficits Principal Diagnosis Acute respiratory failure with hypoxia COVID-19 pneumonia Discharge Data Allergies Allergy/AdvReac Type Severity Reaction Status Date / Time latex Allergy Redness of Verified 02/22/23 15:44 Skin UNKNOWN BP MED Allergy Severe PUFFY FACE Uncoded 02/22/23 15:44 Consultations 02/22/23 16:06 ED Decision to Admit Stat Procedures Performed Laboratory Results WBC 6.13 K/ul (4.8-10.8) 02/23/23 07:08 RBC 4.62 M/uL (4.20-5.40) 02/23/23 07:08 Hgb 13.5 g/dl (12.0-16.0) 02/23/23 07:08 Hct 39.8 % (37.0-47.0) 02/23/23 07:08 MCV 86.1 fL (80.0-100.0) 02/23/23 07:08 MCH 29.2 pg (25.0-34.0) 02/23/23 07:08 MCHC 33.9 g/dL (32.0-36.0) 02/23/23 07:08 RDW Std Deviation 43.8 fL (36.4-46.3) 02/23/23 07:08 RDW Coeff of Joseph 14.1 % (11.5-14.5) 02/23/23 07:08 Plt Count 199 K/uL (130-400) 02/23/23 07:08 MPV 10.2 fL (9.4-12.4) 02/23/23 07:08 Immature Gran % (Auto) 0.3 % 02/22/23 13:20 Neut % (Auto) 78.5 % 02/22/23 13:20 Lymph % (Auto) 11.4 % 02/22/23 13:20 [place] % (Auto) 9.7 % 02/22/23 13:20 Eos % (Auto) 0.0 % 02/22/23 13:20 Baso % (Auto) 0.1 % 02/22/23 13:20 Neut # (Auto) 5.25 K/uL (1.40-6.50) 02/22/23 13:20 Lymph # (Auto) 0.76 K/uL (1.2-3.4) L 02/22/23 13:20 [place] # (Auto) 0.65 K/uL (0.11-0.59) H 02/22/23 13:20 Eos # (Auto) 0.00 K/uL (0-0.50) 02/22/23 13:20 Baso # (Auto) 0.01 K/uL (0-0.2) 02/22/23 13:20 Immature Gran # (Auto) 0.02 K/uL (0.01-0.20) 02/22/23 13:20 VBG pH 7.44 (7.36-7.41) H 02/22/23 15:29 VBG pCO2 36 mmHg (38-50) L 02/22/23 15:29 VBG pO2 39 mmHg 02/22/23 15:29 VBG HCO3 25 mmol/L 02/22/23 15:29 VBG O2 Saturation 72.7 % 02/22/23 15:29 VBG Base Excess 0.7 mEq/L 02/22/23 15:29 Sodium 140 mmol/L (136-145) 02/25/23 06:39 Potassium 3.5 mmol/L (3.5-5.1) 02/25/23 06:39 Chloride 107 mmol/L (98-107) 02/25/23 06:39 Carbon Dioxide 24 mmol/L (21-32) 02/25/23 06:39 Anion Gap 9 (3-11) 02/25/23 06:39 BUN 25 mg/dl (6-23) H 02/25/23 06:39 Creatinine 0.61 mg/dl (0.6-1.2) 02/25/23 06:39 Est Cr Clr Drug Dosing 55.0 ml/min 02/25/23 06:39 Est GFR ( Amer) 95.8 ml/min 02/25/23 06:39 Est GFR (Non-Af Amer) 82.7 ml/min 02/25/23 06:39 BUN/Creatinine Ratio 41.0 (10-20) H 02/25/23 06:39 Glucose 138 mg/dl (70-99(Fasting)) H 02/25/23 06:39 POC Glucose 80 mg/dl (70-99) 02/25/23 12:19 Estimat Average Glucose 189 mg/dl 02/23/23 07:08 Hemoglobin A1c 8.2 % (4.5-5.6) H 02/23/23 07:08 Calcium 9.2 mg/dl (8.6-10.3) 02/25/23 06:39 Magnesium 1.9 mg/dl (1.7-2.4) 02/25/23 06:39 Total Bilirubin 0.4 mg/dl (0.2-1.0) 02/22/23 13:20 AST 25 U/L (13-39) 02/22/23 13:20 ALT 18 U/L (7-52) 02/22/23 13:20 Alkaline Phosphatase 77 U/L (34-104) 02/22/23 13:20 Troponin I High Sens 39.4 pg/ml (0-14) H 02/23/23 00:53 C-Reactive Protein 8.17 mg/dl (0-0.5) H 02/24/23 05:29 Total Protein 6.6 gm/dl (6.0-8.3) 02/22/23 13:20 Albumin 4.1 gm/dl (3.4-5.0) 02/22/23 13:20 Globulin 2.5 gm/dl (2.5-4.0) 02/22/23 13:20 Albumin/Globulin Ratio 1.6 (0.9-2) 02/22/23 13:20 Triglycerides 83 mg/dl (0-150) 02/23/23 07:08 Cholesterol 213 mg/dl (0-200) H 02/23/23 07:08 LDL Cholesterol, Calc 138 mg/dl 02/23/23 07:08 VLDL Cholesterol, Calc 17 mg/dl (0-30) 02/23/23 07:08 HDL Cholesterol 58 mg/dl 02/23/23 07:08 Cholesterol/HDL Ratio 3.7 (0-5) 02/23/23 07:08 Procalcitonin < 0.05 ng/ml (0-0.5) 02/22/23 13:20 Urine Color Yellow 02/22/23 06:00 Urine Appearance Clear (Clear) 02/22/23 06:00 Urine pH 6.0 (4.5-7.5) 02/22/23 06:00 Ur Specific [place] > 1.045 (1.000-1.030) H 02/22/23 06:00 Urine Protein 1+ (Negative) H 02/22/23 06:00 Urine Glucose (UA) 3+ (Negative) H 02/22/23 06:00 Urine Ketones Negative (Negative) 02/22/23 06:00 Urine Blood Negative (Negative) 02/22/23 06:00 Urine Nitrite Negative (Negative) 02/22/23 06:00 Urine Bilirubin Negative (Negative) 02/22/23 06:00 Urine Urobilinogen Negative (Negative) 02/22/23 06:00 Ur Leukocyte Esterase Negative (Negative) 02/22/23 06:00 Urine WBC (Auto) 1-5 /hpf (0-5) 02/22/23 06:00 Urine RBC (Auto) 0-4 /hpf (0-4) 02/22/23 06:00 U Hyaline Cast (Auto) 0 /lpf (0-5) 02/22/23 06:00 U Epithel Cells (Auto) 5-10 /lpf (0-5) H 02/22/23 06:00 Urine Bacteria (Auto) Negative (Negative) 02/22/23 06:00 Adenovirus (PCR) Not Detected (NotDetected) 02/22/23 13:20 B. pertussis DNA (PCR) Not Detected (NotDetected) 02/22/23 13:20 B.parapertussis DNA PCR Not Detected (NotDetected) 02/22/23 13:20 C. pneumoniae DNA (PCR) Not Detected (NotDetected) 02/22/23 13:20 Coronavirus OC43 (PCR) Not Detected (NotDetected) 02/22/23 13:20 Coronavirus HKU1 (PCR) DETECTED (NotDetected) A* 02/22/23 13:20 Coronavirus 229E (PCR) Not Detected (NotDetected) 02/22/23 13:20 SARS-CoV-2 (PCR) DETECTED (NotDetected) A* 02/22/23 13:20 Coronavirus NL63 (PCR) Not Detected (NotDetected) 02/22/23 13:20 Human Metapneumovir PCR Not Detected (NotDetected) 02/22/23 13:20 Influenza Type A (PCR) Not Detected (NotDetected) 02/22/23 13:20 Influenza Type B (PCR) Not Detected (NotDetected) 02/22/23 13:20 M. pneumoniae (PCR) Not Detected (NotDetected) 02/22/23 13:20 Parainfluenza 1 (PCR) Not Detected (NotDetected) 02/22/23 13:20 Parainfluenza 2 (PCR) Not Detected (NotDetected) 02/22/23 13:20 Parainfluenza 3 (PCR) Not Detected (NotDetected) 02/22/23 13:20 Parainfluenza 4 (PCR) Not Detected (NotDetected) 02/22/23 13:20 RSV (PCR) Not Detected (NotDetected) 02/22/23 13:20 Entero/Rhino (PCR) Not Detected (NotDetected) 02/22/23 13:20 Group A Strep (Molecular) Negative (Negative) 02/22/23 13:20 Group A Strep (PCR) Cancelled 02/22/23 13:20 Impressions Chest X-Ray 02/22/23 12:50 SINGLE VIEW CHEST CLINICAL HISTORY: Cough. Illness FINDINGS: An AP, portable, upright chest radiograph is compared to study dated 02/16/2018. The cardiomediastinal silhouette is unremarkable noting atherosclerotic calcification of the thoracic aorta. Chronic interstitial thickening is similar to previous. There is bibasilar scarring/atelectasis. No airspace consolidation or large pleural effusion is identified. No pneumothorax is seen. The skeletal structures are osteopenic. The bony thorax is grossly intact. An indeterminate ovoid metallic foreign body projects over the upper abdomen. IMPRESSION: 1. No acute cardiopulmonary abnormality. 2. An indeterminant metallic foreign body projects over the upper abdomen. Correlate clinically. ACT 112: Negative or not required by law. Electronically signed by: Vicente Nunez M.D. 02/22/2023 1:07 PM Chest CTA 02/22/23 13:50 CT ANGIOGRAPHY OF THE CHEST, PULMONARY EMBOLUS PROTOCOL CLINICAL HISTORY: Shortness of breath. Evaluate for pulmonary embolus. COMPARISON STUDY: Chest radiographs February 16, 2018 and February 22, 2023. TECHNIQUE: Following IV administration of 120 mL of Optiray, helical axial images of the chest were obtained utilizing the pulmonary embolus protocol. Maximal intensity projections and sagittal and coronal reformats were viewed on an independent 3D workstation. IV contrast was administered without complication. Automated exposure control was utilized for the study. A dose l owering technique was utilized adhering to the principles of ALARA. CT DOSE: 437.36 mGycm FINDINGS: No pulmonary emboli are identified although the segmental and subsegmental pulmonary arteries within the lower lobes are suboptimally assessed due to respiratory motion. There is no thoracic aortic dissection. There is no pericardial effusion. Mild cardiomegaly is noted. A few prominent AP window lymph nodes measure up to 1 x 0.8 cm. No pneumothorax or pleural effusion is present. The lungs are suboptimally assessed due to respiratory motion. There are small multifocal subpleural groundglass opacities. No confluent consolidation is identified.Visualized portions of the upper abdomen are unremarkable. There is a small hiatal hernia. IMPRESSION: 1. No pulmonary emboli identified. However, evaluation of the lower lobe segmental and subsegmental pulmonary arteries is significantly compromised by respiratory motion. 2. Multifocal subpleural groundglass opacities. These favor an infectious etiology. 3. Mild cardiomegaly. ACT 112: Negative or not required by law. Electronically signed by: Justo Rai M.D. 02/22/2023 2:56 PM Ordered Studies 02/22/23 13:50 CT angio chest PE protocol Stat Hospital Course (1) Pneumonia due to COVID-19 virus: (2) Acute respiratory failure with hypoxia: Acute respiratory failure with hypoxia COVID-19 pneumonia --CTA:No pulmonary emboli identified. However, evaluation of the lower lobe segmental and subsegmental pulmonary arteries is significantly compromised by respiratory motion. Multifocal subpleural groundglass opacities. These favor an infectious etiology. Mild cardiomegaly. Procalcitonin less than 0.05 CRP 9.67 Mild troponin elevation secondary to above Likely would not benefit from remdesivir given onset of symptoms Weaned off of supplemental oxygen Nebs, antitussives as needed Received IV Decadron CRP trending down Continue doxycycline Saturating well on room air Continue pulmonary hygiene Plan to discharge home today (3) Hyponatremia: Likely due to dehydration from poor oral intake Received IV fluids Monitor sodium levels Sodium levels normalized (4) DM type 2 (diabetes mellitus, type 2): HbA1c 8.2 Continue insulin per protocol Monitor blood glucose levels Appreciate glycemic pharmacy input Adjust insulin as required (5) GERD (gastroesophageal reflux disease): -Continue pantoprazole (6) Hyperlipemia: Total cholesterol mildly elevated LDL 138 Currently not on statins DVT Px: Lovenox SQ CODE STATUS: Full code Disposition PT OT: Recommends return Home Total Time Total Time Spent Total Time Spent (In Minutes): 55 minutes Discharge Plan Discharge Items Patient Disposition: Home - Self-Care Reason For Visit: COVID PNA, ACUTE HYPOXIC RESP FAILURE Discharge Diagnosis: Acute respiratory failure with hypoxia COVID-19 pneumonia Activity: Per Instructions section Exercise/Sports: Wait until after follow-up appointment Non-emergency contact: Primary Care Provider Call non-emergency contact if: you have any medication questions, your symptoms worsen, your pain is concerning for you and you have a fever Follow-up/Referrals: Ro Hood MD [Outside Practitioners] - (Date & Time 02/28/2023 11:20 AM Provider Elsa Arellano Department Family Practice [facility] ) Diet: Carb Consistent or DM2 Addtl Attending Provider Instructions: Follow-up with your primary care physician on 02/28/2023 11:20 AM -- Complete antibiotic course doxycycline as prescribed. Seek immediate medical attention if your symptoms reoccur or worsen Please take all medications as instructed on discharge list below. Please call if you have any questions or problems. You can reach a [facility] hospitalist on duty at [facility] 24 hours a day by calling [phone] Home Isolation COVID-19 Instructions The following information about Home Isolation is from the CDC Website: https://www.cdc.gov/coronavirus/2019-ncov/hcp/lqtwrdtv-kymtxat-kmlvxx.html Stay home except to get medical care People who are mildly ill with COVID-19 are able to isolate at home during their illness. You should restrict activities outside your home, except for getting medical care. Do not go to work, school, or public areas. Avoid using public transportation, ride-sharing, or taxis. Separate yourself from other people and animals in your home People: As much as possible, you should stay in a specific room and away from other people in your home. Also, you should use a separate bathroom, if available. Animals: You should restrict contact with pets and other animals while you are sick with COVID-19, just like you would around other people. Although there have not been reports of pets or other animals becoming sick with COVID-19, it is still recommended that people sick with COVID-19 limit contact with animals until more information is known about the virus. When possible, have another member of your household care for your animals while you are sick. If you are sick with COVID-19, avoid contact with your pet, including petting, snuggling, being kissed or licked, and sharing food. If you must care for your pet or be around animals while you are sick, wash your hands before and after you interact with pets and wear a face mask. Call ahead before visiting your doctor If you have a medical appointment, call the healthcare provider and tell them that you have or may have COVID-19. This will help the healthcare providers office take steps to keep other people from getting infected or exposed. Wear a face mask You should wear a face mask when you are around other people (e.g., sharing a room or vehicle) or pets and before you enter a healthcare providers office. If you are not able to wear a face mask (for example, because it causes trouble breathing), then people who live with you should not stay in the same room with you, or they should wear a face mask if they enter your room. Cover your coughs and sneezes Cover your mouth and nose with a tissue when you cough or sneeze. Throw used tissues in a lined trash can. Immediately wash your hands with soap and water for at least 20 seconds or, if soap and water are not available, clean your hands with an alcohol-based hand shuttle preparation supervisor that contains at least 60% alcohol. Clean your hands often Wash your hands often with soap and water for at least 20 seconds, especially after blowing your nose, coughing, or sneezing; going to the bathroom; and before eating or preparing food. If soap and water are not readily available, use an alcohol-based hand shuttle preparation supervisor with at least 60% alcohol, covering all surfaces of your hands and rubbing them together until they feel dry. Soap and water are the best option if hands are visibly dirty. Avoid touching your eyes, nose, and mouth with unwashed hands. Avoid sharing personal household items You should not share dishes, drinking glasses, cups, eating utensils, towels, or bedding with other people or pets in your home. After using these items, they should be washed thoroughly with soap and water. Clean all high-touch surfaces everyday High touch surfaces include counters, tabletops, doorknobs, bathroom fixtures, toilets, phones, keyboards, tablets, and bedside tables. Also, clean any surfaces that may have blood, stool, or body fluids on them. Use a household cleaning spray or wipe, according to the label instructions. Labels contain instructions for safe and effective use of the cleaning product including precautions you should take when applying the product, such as wearing gloves and making sure you have good ventilation during use of the product. Monitor your symptoms Seek prompt medical attention if your illness is worsening (e.g., difficulty breathing).Beforeseeking care, call your healthcare provider and tell them that you have, or are being evaluated for, COVID-19. Put on a face mask before you enter the facility. These steps will help the healthcare providers office to keep other people in the office or waiting room from getting infected or exposed. Ask your healthcare provider to call the local or state health department. Persons who are placed under active monitoring or facilitated self- monitoring should follow instructions provided by their local health department or occupational health professionals, as appropriate. When working with your local health department check their available hours. If you have a medical emergency and need to call 911, notify the dispatch personnel that you have, or are being evaluated for COVID-19. If possible, put on a face mask before emergency medical services arrive. Discontinuing home isolation Patients with confirmed COVID-19 should remain under home isolation precautions until the risk of secondary transmission to others is thought to be low. The decision to discontinue home isolation precautions should be made on a [id number] basis, in consultation with healthcare providers and state and local health departments. Pending Studies at Discharge: No Stand-Alone Forms: My [facility], Smoking Cessation Medications and DC Order Prescriptions: New doxycycline hyclate 100 mg Capsule 100 mg PO BID Qty: 10 0RF albuterol sulfate [Ventolin HFA] 90 mcg/actuation Hfa Aerosol Inhaler 2 puff inhalation Q6H PRN (Reason: shortness of breath or wheezing) 7 Days Qty: 6.7 0RF benzonatate 100 mg Capsule 100 mg PO TID PRN (Reason: cough) Qty: 30 0RF guaifenesin [Mucinex] 600 mg Tablet Extended Release 12hr 600 mg PO Q12 Qty: 6 0RF prednisone 10 mg tablet 10 mg PO DAILY Qty: 3 0RF Continued multivitamin Tablet 1 tab PO DAILY venlafaxine 150 mg capsule,extended release 24hr 150 mg PO BID famotidine 20 mg tablet 20 mg PO BID pantoprazole 40 mg tablet,delayed release (DR/EC) 40 mg PO DAILY buspirone 10 mg tablet 10 mg PO BID Rx Instructions: MAY TAKE A 3RD DOSE IF NEEDED. ibuprofen 200 mg Tablet 400 mg PO Q6H PRN (Reason: Pain) mirtazapine 15 mg tablet 15 mg PO QPM insulin glargine [Lantus Solostar U-100 Insulin] 100 unit/mL (3 mL) insulin pen 30 unit SUBCUT HS melatonin 5 mg Tablet 5 mg PO DAILYBL cetirizine [Zyrtec] 10 mg Tablet 10 mg PO DAILY vitamin E (dl, acetate) 180 mg (400 unit) Capsule 180 mg PO HS Discharge Orders: Discharge Order (Routine); Ordered 02/25/23 Ordered By: Pablo Borja/Other Patient Handouts: High Blood Sugar (Hyperglycemia), Managing Type 2 Diabetes Admission Data Admit Date/Time: 02/22/23 16:23 Attending Provider: Pablo Zarate Admit Provider: Pablo Zarate Primary Care Provider: Giorgio Kaplan [place] Other Providers: Anitha Heath Other Interventions: Discharge Summary Assessment (RN) Last Done: 02/25/23 12:42
[2023-02-25] MEDS ORDERED: LANTUS PER UNIT CHARGE SC SCH (21:00)
== END 2023-02-25 13:34 | disposition home or self-care (01) | DRG 177 ==
LOC: ED 12:38 → 2N 16:23

== ENCOUNTER 2024-09-17 19:06 | Inpatient (IN) ==
--- OUTSIDE RECORDS SUMMARY | 2024-09-17 19:12 | External Medical Summary | Summary of Care ---
Author Name Unknown Organization [facility] Address [address] [place] [address] Phone [phone] Care Team Providers Care Extruder Operator Multiple Name Role Phone Jarret Gardner MD Primary Care Provider + Reason for Visit * Reason Onset Date Comments Short of Breath 09/07/2024 Encounter Details Date Type Department Care Team (Late st Contact Info) Description 09/07/2024 Telephone General Internal Medicine [facility] [address] [facility] [place] [address] Vianney Cardenas PA-C [address] [place] [address] Short of Breath Allergies Active Allergy Reactions Criticality Noted Date Comments Tay Inhibitors Edema face/lips/tongue High 7 Codeine Nausea/vomiting Low 02/12/2018 Causes vomiting. Statins 11/12/2022 Face swelling documented as of this encounter (statuses as of 09/16/2024) Medications busPIRone HCl 10 MG Oral Tablet (Buspar)Indicati ons:Anxiety Take by mouth 2 times a day. 15 mg in the AM and 10 mg in the PM 60 Tab 3 1 Active Venlafaxine HCl ER 150 MG Oral Capsule Extended Release 24 Hour (Effexor XR) Take 1 Capsule by mouth in the morning and 1 Capsule before bedtime. 2 Active Mirtazapine 15 MG Oral Tablet (Remeron) Take 1 Tablet by mouth at bedtime. 2 Active OneTouch Ultra 2 w/Device KitIndications:D iabetes mellitus type 2, insulin dependent (HCC) Use as directed to monitor blood sugar. 1 Each 1 3 Active BD Pen Needle Rody 2nd Gen 32G X 4 MM (Insulin Pen Needle) Use with Lantus pen E11.9 100 Each 3 3 Active Vitamin E 180 MG (400 UNIT) Oral Capsule Take 1 Capsule by mouth at bedtime. Active Womens Multi Vitamin & Mineral Oral Tablet Take by mouth. Activ e Loratadine 10 MG Oral Capsule Take 1 Capsule by mouth in the morning. Active Ibuprofen 200 MG Oral Capsule Take 1 Capsule by mouth every 8 hours as needed. Active OneTouch UltraSoft LancetsIndicatio ns:Diabetes mellitus type 2, insulin dependent (HCC) Use as directed 3 times a day as needed (blood sugar). Use up to three times a day as directed 300 Each 4 Active Healthy LabsTouch Ultra In Vitro Strip (Glucose Blood)Indication s:Diabetes mellitus type 2, insulin dependent (HCC) Use as directed to check blood sugar 3 times a day. 100 Strip 11 4 Active Ventolin HFA 108 (90 Base) MCG/ACT Inhalation Aerosol SolutionIndicati ons:Bronchitis, complicated Inhale 2 Puffs by mouth every 4 hours as needed for Wheezing. 18 g 4 Active metFORMIN HCl ER 500 MG Oral Tablet Extended Release 24 Hour (Glucophage XR) TAKE ONE TABLET BY MOUTH TWICE A DAY IN THE MORNING AND IN THE EVENING 180 Tablet 2 4 Active Insulin Glargine Solostar 100 UNIT/ML Subcutaneous Solution Pen-injector (Lantus SoloStar)Indicat ions:Diabetes mellitus type 2, insulin dependent (HCC) INJECT 16 UNITS UNDER THE SKIN EVERY NIGHT AT BEDTIME 15 mL 1 4 Active Pantoprazole Sodium 40 MG Oral Tablet Delayed Release (Protonix) TAKE ONE TABLET BY MOUTH EVERY MORNING 90 Tablet 3 4 Active Famotidine 20 MG Oral Tablet (Pepcid)Indicati ons:Gastroesopha geal reflux disease without esophagitis TAKE ONE TABLET BY MOUTH EVERY MORNING AND 1 TABLET BEFORE BEDTIME 180 Tablet 3 4 Active Gabapentin 100 MG Oral Capsule (Neurontin) Take 1 Capsule by mouth in the morning and 1 Capsule at noon and 1 Capsule before bedtime. 90 Capsule 5 4 Active Additional Information Patient taking differently:100 mg OralBID (.AM/PM), Reported on 09/07/2024 Fluticasone Furoate-Vilanter ol 200-25 MCG/ACT Inhalation Aerosol Powder Breath Activated (BREO ellipta)Indicati ons:Moderate persistent reactive airway disease without complication Inhale 1 Puff by mouth in the morning. 60 Blister Dosing Unit 5 4 Active Melatonin 3 MG Oral Tablet Take 1 Tablet by mouth at bedtime. 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 Much louder preop than intraop. Also had refractory intraoperative hypotension. Prosthetic joint infection 07/15/2020 History of nonmelanoma skin cancer 11/04/2019 Diabetes mellitus type 2, insulin dependent 05/22 PHN (postherpetic neuralgia) 04/01/2018 Type 2 diabetes mellitus wit h hyperglycemia, with long-term current use of insulin 11/08/2017 Recurrent major depressive disorder, in remissio n 11/08/2017 GERD (gastroesophageal reflux disease) documented as of this encounter (statuses as of 09/16/2024) Resolved Problems Problem Noted Date Diagnosed Date Resolved Date Pneumonia due to COVID-19 virus 04/29/2023 03/25/2024 Age-related osteoporosis wit hout current pathological fracture 04/29/2023 03/25/2024 Acute blood loss anemia 01/04/2021 06/02/2024 Arthritis of midtarsal joint 07/16/2020 03/25/2024 Effusion of right knee 07/16/202003/25 Motion sickness 07/16/2020 07/20/2020 Overview (07/16/2020): Not very severe. Scopolamine patch too strong. Takes half a Dramamine or similar. PONV (postoperative nausea and vomiting) 07/16/2020 03/25/2024 Overview (07/16/2020): Sometimes. High risk for fracture due t o osteoporosis by DEXA scan 09/24/2017 03/25/2024 Overview (01/14/2023): Present at L forearm in 2016. L hip NOT osteoporotic in 2022. 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 documented as of this encounter (statuses as of 09/16/2024) Immunizations Name Administration Dates Next Due COVID-19 mRNA, LNP-s, No Pre serve, 2-Dose Series (Mark Forged) 07/20/2021 COVID-19, LNP-s, No Preserve , Burke-sucrose, Ages 12+ (Pfizer) 02/06/2022 COVID-19, MRNA-LNP, 24-25, P F, 50 MCG/0.5ML, IM, 12 YRS & ABOVE (Moderna - Spikevax) 07/10/2024 COVID-19, MRNA-LNP, PF, 50 M CG/0.5 mL, 12 YRS AND ABOVE, IM (MODERNA-Spikevax) 08/08/2023 Covid-19, Mrna, Lnp-s, Pf, B ivalent, 30 Mcg, IM, 12 yrs and above (Mark Forged) 07/10/2022 Pneumococcal Conjugate Vacc, 13 Valent (Prevnar) 10/21/2016 Pneumococcal Polysaccharide PPV23 (Pneumovax) 07/05/2014 RSV Vac., Bivalent, Perfusio n F, Pf,0.5 Ml (Abrysvo) 09/27/2023 Season Influenza, Quad, PF, Adjuvanted, 65+ Yrs, IM (FLUAD) 08/08/2023,06/24/2020 Seasonal Influenza Virus Vac cine, Unspecified Formulation 07/05/2021,06/24/2020,07/24/2019,07/03 Seasonal Influenza, High Dos e, Trivalent, PF, IM (Fluzone HD) 09/07/2024 Seasonal Influenza, PF, 6 M & above, IM , (FluLaval or Fluzone) 07/03/2018 Seasonal Influenza, Quadriva lent Hd (Fluzone Hd) 07/05/2021 Seasonal Influenza, Trivalen t, Adjuvanted, 65+ YRS, PF, (Fluad) 07/24/2019 TDAP, Age 7 and older, IM (Adacel) 05/26/2018 Zoster Vaccine Recombinant (Shingrix) 05/18/2022 ,04/14/2020 documented as of this encounter Social History Tobacco Use Types Packs/Day Years Used Date Smoking Tobacco: Former Cigarettes 0.5 13 1 0 - 1972 Smokeless Tobacco: Never Comments:stopped 50 yrs ago Alcohol Use Standard Drinks/Week Comments Yes 0 (1 standard drink = 0.6 oz pur e alcohol) socially PHQ-2 Answer Date Recorded PHQ Adult Total Score 0 01/14/2023 Hunger Vital Sign Answer Date Recorded Within the past 12 months, y ou worried that your food would run out before you got the money to buy more. Never true 04/29/20 23 Within the past 12 months, t he food you bought just didn't last and you didn't have money to get more. Never true 04/29/2023 Childcare Answer Date Recorded Do you feel overwhelmed with taking care of a child, family member or friend? No 04/29/2023 Does your family need help f inding childcare? (Household - for ages 0-17 years) Not on file 04/29/2023 Clothing Answer Date Recorded Have you been unable to get clothing when it was really needed? No 04/29/2023 Is your family able to get c lothes or diapers when needed? (Household - for ages 0-17 years) Not on file 04/29/2023 Personal Safety Answer Date Recorded Do you feel unsafe or have concerns for your saf ety? No 04/29/2023 Do you have concerns for you r family's safety? (Household - for ages 0-17 years) Not on file 04/29/2023 Utilities Answer Date Recorded Do you have trouble paying y our heating, water, or electric bill? No 04/29/2023 Is your family able to pay t he heat, water, or electric bill? (Household - for ages 0-17 years) Not on file 04/29/2023 Does your family have access to good internet? (Household - for ages 0-17 years) Not on file 04/29/2023 Employment Status Answer Date Recorded Are you unemployed or without regular income? No 04/29/2023 Does the household have a re gular source of income? (Household - for ages 0-17 years) Not on file 04/29/2023 Social Connections Answer Date Recorded How often do you feel lonely or isolated from th ose around you? Never 04/29/2023 Financial Resource Strain Answer Date R ecorded Do you have any trouble payi ng for your medications, or do you think you might in the future? No 04/29/2023 Does your family have troubl e paying for medicine? (Household - for ages 0-17 years) Not on file 04/29/2023 Transportation Needs Answer Date Record ed READ ONLY Do you have troubl e getting a ride to medical visits or work? Never True 04/29/2023 Does your family have a hard time getting a ride to doctors visits? (Household - for ages 0-17 years) Not on file 04/29/2023 Has lack of transportation k ept you from medical appointments, meetings, work, or from getting things needed for daily living? Check all that apply. (Adult - for ages 18 years and over) Not on file 04/29/2023 Do you (or your family) have trouble finding or paying for a ride (transportation)? (Household - for ages 0-17 years) Not on file 04/29/2023 Housing Stability Answer Date Recorded Do you currently live in a s helter or have no steady place to sleep at night? No 04/29/2023 READ ONLY Do you think you a re at risk of becoming homeless? No 04/29/2023 Does your family worry about paying for your home or becoming homeless? (Household - for ages 0-17 years) Not on file 0 04/29/2023 Are you homeless or worried that you might be in the future? (Adult - for ages 18 years and over) Not on file Are you (or your family) ron eless or worried that you might be in the future? (Household - for ages 0-17 years) Not on file Food Insecurity Answer Date Recorded Do you need food for this week? No 04/29/2023 Are you able to get enough f ood for your family? (Household - for ages 0-17 years) Not on file 04/29/2023 Does your family need food t his week? (Household - for ages 0-17 years) Not on file 04/29/2023 Do you always have enough fo od for your family? (Household - for ages 0-17 years) Not on file 04/29/2023 Comments No Sex and Gender Information Value Date Recorded Sex Assigned at Female 02/07/2019 1:00 PM EDT Legal Sex Female 9:47 AM EST Gender Identity Female 02/07/2019 1:00 PM EDT Sexual Orientation Straight 02/07/2019 1: 00 PM EDT Occupation Industry Job Start Date Job End Date retired Not on file Not on file Not on file documented as of this encounter Functional Status * Are you deaf or do you have serious difficulty hearing? Answer Date of Assessment Author No 01/03/2021 6:35 PM EDT Elva Xiong RN * Are you blind or do you have serious difficulty seeing, even when wearing glasses? Answer Date of Assessment Author No 01/03/2021 6:35 PM EDT Elva Xiong RN * Do you have serious difficulty walking or climbing stairs? (5 years old or older) Answer Date of Assessment Author Yes 01/03/2021 6:35 PM LANAT Elva Xiong RN * Do you have difficulty dressing or bathing? (5 years old or older) Answer Date of Assessment Author No 01/03/2021 6:35 PM EDT Elva Xiong, RN * Because of a physical, mental, or emotional condition, do you have difficulty doing errands alone such as visiting a doctors office or shopping? (15 years old or older) Answer Date of Assessment Author Yes 01/03/2021 6:35 PM EDT lEva Xiong RN documented as of this encounter Mental Status * Because of a physical, mental, or emotional condition, do you have serious difficulty concentrating, remembering, or making decisions? (5 years old or older) Answer Entry Date Author No 01/03/2021 6:35 PM EDT Elva Xiong RN documented in this encounter Miscellaneous Notes * Telephone Encounter - Vianney Cardenas PA-C - 09/16/2024 9:46 AM EST Pt seen by Dr. Holder on 09/15. * Telephone Encounter - Maribell Alarcon LPN - 09/09/2024 8:[address] Holder, please contact pt to schedule appt with him for ongoing dyspnea. * Telephone Encounter - Maribell Alarcon LPN - 09/09/2024 8:38 AM EST 6 minute walk test and nocturnal oximetry done in 2022 did NOT show any evidence of hypoxia during night/ambulation. Patient would benefit from a follow-up re-evaluation. Team, Please schedule patient in earliest possible available slot. Sincerely Dr Holder * Telephone Encounter - Vianney Cardenas PA-C - 09/07/2024 4:54 PM EST Datto pt seen in the office today with c/o ongoing worsening dyspnea on exertion. [facility]--looks like a 6 min walk test and overnight pulse oximetry were recommended, but I don't see that these were completed. If these tests can be arranged and pt can be scheduled for a f/up appt with you, I'd appreciate it. Thank you! documented in this encounter Plan of Treatment Upcoming Encounters Date Type Department Care Team (Late st Contact Info) Description 11/04/2024 4:00 PM EST Office Visit General Internal Medicine [facility] [address] [place] [address] Jarret Gardner MD [address] [facility] [place] [address] 05/12/2025 2:15 PM EDT Imaging Radiology [address] [place] [address] Health Maintenance Due Date Last Done Comments Adult Wellness Visit 03/24/2019 03/24/2018 Depression Monitoring 01/15/2024 01/14/2023 COVID-19 Vaccine ( season) 2024 07/10/2024, 08/08/2023, 07/10/2022, Additional history exists Diabetic Foot Exam 09/04/2024 09/04/2023, 0 07/05/2021, 03/24/2018 Albumin/Creatinine Ratio 09/10/2024 023, 11/01/2022, 07/05/2021, Additional history exists HbA1c 12/27/2024 06/29/2024, 06/0 03/2024, 09/10/2023, Additional history exists Diabetic Eye Exam 04/14/2025 04/14/2024, , 04/09/2023, Additional history exists DTap/Tdap Vaccines (2 - Td or Tdap) 05/26/2028 05/26/2018 DXA Scan 11/12/2029 11/12/2022, 10/22, 03/28/2017, Additional history exists Pneumococcal Vaccine: 65+ Years Completed 10/21/2016, 07/05/2014 Zoster Vaccines Completed 05/18/2022, 04/14/2020 Influenza Vaccine (FLU shot) Completed , 08/08/2023, 07/08/2022, Additional history exists HPV (Gardasil) Vaccine Aged Out No lo nger eligible based on patient's age to complete this topic Hepatitis B Vaccine Aged Out No longe r eligible based on patient's age to complete this topic MENINGOCOCCAL (MENACTRA/MENVEO) Aged Out No longer eligible based on patient's age to complete this topic documented as of this encounter Medical Devices Implanted Type Area Dry Cell Tester Device Identifier Shelf Expiration Date Model / Serial / Lot Cement Bone Palacos R 1x40g - [id number] Implanted:Qty: 4 on 07/19/2020 by Ha Oviedo MD at [place] [facility] [place]: Knee [facility] 08/20/2023 [id number] / / [id number] Jose Patella Implanted:Qty: 1 on 01/03/2021 by Ha Oviedo MD at [place] [facility] [place]: Knee 04/19/2024 [id number] -10 / / [id number] Cement Bone Palacos R 1x40g - [id number] Implanted:Qty: 5 on 01/03/2021 by Ha Oviedo MD at [place] [facility] [place]: Knee [facility] 08/20/2024 [id number] / / [id number] Jose Femur Implanted:Qty: 1 on 01/03/2021 by Ha Oviedo MD at [place] [facility] [place] Right: Knee 01/18/2030 [id number] -02 / / [id number] Jose Stem Implanted:Qty: 1 on 01/03/2021 by Ha Oviedo MD at [place] [facility] [place] Right: Knee 06/05/2030 [id number] -14 / / [id number] Plug 20/24mm Insert - [id number] Implanted:Qty: 1 on 01/03/2021 by Ha Oviedo MD at [place] [facility] [place]: Knee [employer] 12/19/2023 [id number] -01 / / [id number] Jose Stem Implanted:Qty: 1 on 01/03/2021 by Ha Oviedo MD at [place] [facility] [place] Right: Knee 12/18/2029 [id number] -14 / / [id number] Jose Tibia Implanted:Qty: 1 on 01/03/2021 by Ha Oviedo MD at [place] [facility] [place] Right: Knee 02/17/2029 [id number] -02 / / [id number] Plugs W/Disp Insert 12mm/16mm - [id number] Implanted:Qty: 1 on 01/03/2021 by Ha Oviedo MD at [place] [facility] [place] Right: Knee [employer] 08/20/2023 [id number] -01 / / [id number] Patella Persona 29mm - [id number] Implanted:Qty: 1 on 01/03/2021 by Ha Oviedo MD at [place] [facility] [place]: Knee [employer] 06/20/2026 [id number] -29 / / [id number] documented as of this encounter Advance Directives Documents on File Type Date Recorded 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 Question Answer Comments Discussion of Advance Directives occurred with: Patient Does the patient have a Living Will? Yes, not cu rrently available Does the patient have Health Care Power of Health Information Tech? Yes, not currently available * Full Code Date Activated Date Inactivated Comments 01/03/2021 4:26 PM 01/03/2021 7:44 PM This order r eflects the patients wishes and were consensually agreed upon. * Full Code Date Activated Date Inactivated Comments 07/15/2020 3:50 PM 07/24/2020 4:39 PM This order r eflects the patients wishes and were consensually agreed upon. Question Answer Comments Discussion of Advance Directives occurred with: Patient Does the patient have a Living Will? No Does the patient have Health Care Power of Attor randolph? No Care Teams Extruder Operator Multiple Relationship Specialty Start Date End Date Jarret Gardner MD [address] [place] [place] [address] PCP - General Internal Medicine 03/26/24 documented as of this encounter
--- OUTSIDE RECORDS SUMMARY | 2024-09-17 19:12 | External Medical Summary | Summary of Care ---
Author Name Unknown Organization [facility] Address [address] [place] [address] Phone [phone] Care Team Providers Care Informatica Mdm Architect Name Role Phone Jarret Gardner MD Primary Care Provider + Reason for Visit * Reason Comments Outpatient Testing Encounter Details Date Type Department Care Team (Late st Contact Info) Description 09/01/2024 3:40 PM EST Laboratory Laboratory Scenery [facility] [address] [place] [id number] [facility] Scenery [address] [place] [id number] Encounter for long-term (current) use of medications; Vitamin deficiency Allergies Active Allergy Reactions Criticality Noted Date Comments Tay Inhibitors Edema face/lips/tongue High 7 Codeine Nausea/vomiting Low 02/12/2018 Causes vomiting. Statins 11/12/2022 Face swelling documented as of this encounter (statuses as of 09/01/2024) Medications busPIRone HCl 10 MG Oral Tablet (Buspar)Indicati ons:Anxiety Take by mouth 2 times a day. 15 mg in the AM and 10 mg in the PM 60 Tab 3 Active Venlafaxine HCl ER 150 MG Oral [...] Oral Tablet Take by mouth. Activ e Melatonin 5 MG Oral Tablet Take 1 Tablet by mouth at bedtime. Active Diclofenac Sodium 1 % External Gel Apply topically to affected area 4 times a day as needed for Pain. Apply to skin as needed for pain Active Loratadine 10 MG Oral Capsule Take 1 Capsule by mouth in the morning. Active Ibuprofen 200 MG Oral Capsule Take 1 Capsule by mouth. In the morning, 2 capsules by mouth at night Active OneTouch UltraSoft LancetsIndicatio ns:Diabetes mellitus type 2, insulin dependent (HCC) Use as directed 3 times a day as needed (blood sugar). Use up to three times a day as directed 300 Each 11 4 Active OneTouch Ultra In Vitro Strip (Glucose Blood)Indication s:Diabetes [...] Capsule 5 4 Active Additional Information Patient not taking.Reported on 07/17/2024 Fluticasone Furoate-Vilanter ol 200-25 MCG/ACT Inhalation Aerosol Powder Breath Activated (BREO ellipta)Indicati ons:Moderate persistent reactive airway disease without complication Inhale 1 Puff by mouth in the morning. 60 Blister Dosing Unit 5 4 Active documented as of this encounter (statuses as of 09/01/2024) Active Problems Problem Noted Date Diagnosed Date [...] insulin 11/08/2017 Recurrent major depressive disorder, in remiss n 11/08/2017 GERD (gastroesophageal reflux disease) documented as of this encounter (statuses as of 09/01/2024) Resolved Problems Problem Noted Date Diagnosed Date [...] as of this encounter (statuses as of 09/01/2024) Immunizations Name Administration Dates Next Due COVID-19 mRNA, LNP-s, No Pre serve, 2-Dose Series (V-cube [place]) 07/20/2021 COVID-19, LNP-s, No Preserve , Burke-sucrose, Ages 12+ (V-cube [place]) 02/06/2022 COVID-19, MRNA-LNP, 24-25, P F, 50 MCG/0.5ML, IM, 12 YRS & ABOVE (Moderna - Spikevax) 07/10/2024 COVID-19, MRNA-LNP, PF, 50 M CG/0.5 mL, 12 YRS AND ABOVE, IM (MODERNA-Spikevax) 08/08/2023 Covid-19, Mrna, Lnp-s, Pf, B ivalent, 30 Mcg, IM, 12 yrs and above (V-cube [place]) 07/10/2022 Pneumococcal Conjugate Vacc, 13 Valent (Prevnar) 10/21/2016 Pneumococcal Polysaccharide PPV23 (Pneumovax) 07/05/2014 RSV Vac., Bivalent, Perfusio n F, Pf,0.5 Ml (Abrysvo) 09/27/2023 Season Influenza, Quad, PF, Adjuvanted, 65+ Yrs, IM (FLUAD) 08/08/2023,06/24/2020 Seasonal Influenza Virus Vac cine, Unspecified Formulation 07/05/2021,06/24/2020,07/24/2019,07/03 Seasonal Influenza, PF, 6 M & above, [...] Smoking Tobacco: Former Cigarettes 0.5 13 1 960 - 1972 Smokeless Tobacco: Never Comments:stopped 50 [...] y our heating, water, or electric bill? (Adult - for ages 18 years and over) Not on file 04/29/2024 Is your family able to pay t he heat, water, or electric bill? (Household - for ages 0-17 years) Not on file 04/29/2024 Does your family have access to good internet? (Household - for ages 0-17 years) Not on file 04/29/2024 Employment Status Answer Date Recorded Are you unemployed or without regular income? No 04/29/2023 Does the household have a re gular source of income? (Household - for ages 0-17 years) Not on file 04/29/2023 Social Connections Answer Date Recorded How often do you feel lonely or isolated from those around you? (Adult - for ages 18 years and over) Not on file 04/29/2024 Financial Resource Strain Answer Date R ecorded [...] of Assessment Author Yes 01/03/2021 6:35 PM Elva Caceres RN * Do you have difficulty dressing or bathing? (5 years old or older) Answer Date of Assessment Author No 01/03/2021 6:35 PM LANAT Elva Xiong RN * Because of a physical, mental, or emotional condition, do you have difficulty doing errands alone such as visiting a doctors office or shopping? (15 years old or older) Answer Date of Assessment Author Yes 01/03/2021 6:35 PM EDT Elva Xiong RN documented as of this encounter Mental Status * Because of a physical, mental, or emotional condition, do you have serious difficulty concentrating, remembering, or making decisions? (5 years old or older) Answer Entry Date Author No 01/03/2021 6:35 PM EDT Elva Xiong RN documented in this encounter Plan of Treatment Upcoming Encounters Date Type Department Care Team (Late st Contact Info) Description 11/04/2024 4:00 PM EST Office Visit General Internal Medicine [facility] [address] [facility] [address] [place] [address] Jarret Gardner MD [address] [facility] [place] [address] 05/12/2025 2:15 PM EDT Imaging Radiology [address] [facility] [place] [address] Pending Results Name Type Priority Associated Diagnoses Date /Time COMPREHENSIVE METABOLIC PANEL Lab Routine Encounter for long-term (current) use of medications Vitamin deficiency 09/01/2024 3:44 PM EST VITAMIN B12 Lab Routine Encounter for long-term (current) use of medications Vitamin deficiency 09/01/2024 3:44 PM EST 1,25-DIHYDROXY VITAMIN D Lab Routine Encounter for long-term (current) use of medications Vitamin deficiency 09/01/2024 3:44 PM EST Health Maintenance Due Date Last Done Comments Adult Wellness Visit 03/24/2019 03/24/2018 Depression Monitoring 01/15/2024 01/14/2023 Influenza Vaccine (FLU shot) (#1) 2024 08/08/2023, 07/08/2022, 07/05/2021, Additional history exists COVID-19 Vaccine ( season) 2024 07/10/2024, 08/08/2023, 07/10/2022, Additional history exists Diabetic Foot Exam 09/04/2024 09/04/2023, 0 07/05/2021, 03/24/2018 Albumin/Creatinine Ratio 09/10/2024 023, 11/01/2022, 07/05/2021, Additional history exists HbA1c 12/27/2024 06/29/2024, 06/03/2024, 09/10/2023, Additional history exists Diabetic Eye Exam 04/14/2025 04/14/2024, , 04/09/2023, Additional history exists DTap/Tdap Vaccines (2 - Td or Tdap) 05/26/2028 05/26/2018 DXA Scan 11/12/2029 11/12/2022, 10/22, 03/28/2017, Additional history exists Pneumococcal Vaccine: 65+ Years Completed 10/21/2016, 07/05/2014 Zoster Vaccines Completed 05/18/2022, 04/14/2020 HPV (Gardasil) Vaccine Aged Out No lo nger eligible based on patient's age to complete this topic Hepatitis B Vaccine Aged Out No longe r eligible based on patient's age to complete this topic MENINGOCOCCAL (MENACTRA/MENVEO) Aged Out No longer eligible based on patient's age to complete this topic documented as of this encounter Medical Devices Implanted Type Area Museum Security Chief Device Identifier Shelf Expiration Date Model / Serial / Lot Cement Bone Palacos R 1x40g - [id number] Implanted:Qty: 4 on 07/19/2020 by Ha Oviedo MD at [place] [facility] [place] Right: Knee [facility] 08/20/2023 [id number] / / [id number] Jose Patella Implanted:Qty: 1 on 01/03/2021 by Ha Oviedo MD at OR [facility] [place] Right: Knee 04/19/2024 [id number] -10 / / [id number] Cement Bone Palacos R 1x40g - [id number] Implanted:Qty: 5 on 01/03/2021 by Ha Oviedo MD at [place] [facility] [place] Right: Knee [facility] 08/20/2024 [id number] / / [id number] Jose Femur Implanted:Qty: 1 on 01/03/2021 by Ha Oviedo MD at OR [facility] [place] Right: Knee 01/18/2030 [id number] -02 / / [id number] Jose Stem Implanted:Qty: 1 on 01/03/2021 by Ha Oviedo MD at OR [facility] [place] Right: Knee 06/05/2030 [id number] -14 / / [id number] Plug 20/24mm Insert - [id number] Implanted:Qty: 1 on 01/03/2021 by Ha Oviedo MD at OR [facility] [place] Right: Knee [employer] 12/19/[id number] - / / [id number] Jose Stem Implanted:Qty: 1 on 01/03/2021 by Ha Oviedo MD at OR [facility] [place] Right: Knee 12/18/2029 [id number] -14 / / [id number] Jose Tibia Implanted:Qty: 1 on 01/03/2021 by Ha Oviedo MD at OR [facility] [place] Right: Knee 02/17/2029 [id number] -02 / / [id number] Plugs W/Disp Insert 12mm/16mm - [id number] Implanted:Qty: 1 on 01/03/2021 by Ha Oviedo MD at OR [facility] [place] Right: Knee [employer] 08/20/2023 [id number] - / / [id number] Patella Persona 29mm - [id number] Implanted:Qty: 1 on 01/03/2021 by Ha Oviedo MD at OR [facility] [place] Right: Knee [employer] 06/20/2026 [id number] -29 / / [id number] documented as of this encounter Visit Diagnoses Diagnosis Encounter for long-term (current) use of medications Encounter for long-term (current) use of other medications Vitamin deficiency Unspecified vitamin deficiency Screening mammogram for breast cancer documented in this encounter Advance Directives Documents on File Type Date Recorded Patient Informatics Manager Expl anation Advance Directives and Living Will [...] the patient have Health Care Power of Side Show Entertainer? Yes, not currently available * Full Code [...] Power of Attor randolph? No Care Teams Informatica Mdm Architect Relationship Specialty Start Date End Date Jarret Gardner MD [address] [place] [address] PCP - General Internal Medicine 03/26/24 documented as of this encounter
--- OUTSIDE RECORDS SUMMARY | 2024-09-17 19:12 | External Medical Summary | Summary of Care ---
Author Name Unknown Organization [facility] Address [address] [place] [address] Phone [phone] Care Team Providers Care Cracker Sprayer Name Role Phone Jarret Gardner MD Primary Care Provider + Reason for Visit * Reason Comments Follow Up Restrictive Airway D isease Encounter Details Date Type Department Care Team (Late st Contact Info) Description 09/15/2024 3:40 PM EST Office Visit Pulmonary Medicine, [facility] [address] [place] [address] Ji Holder MD [address] [place] [id number] Dyspnea and respiratory abnormalities*; Pneumonia due to COVID-19 virus Allergies Active Allergy Reactions Criticality Noted Date Comments Tay Inhibitors Edema face/lips/tongue High 7 Codeine Nausea/vomiting Low 02/12/2018 Causes vomiting. Statins 11/12/2022 Face swelling documented as of this encounter (statuses as of 09/15/2024) Medications busPIRone HCl 10 MG Oral Tablet [...] as of this encounter (statuses as of 09/15/2024) Active Problems Problem Noted Date Diagnosed Date [...] as of this encounter (statuses as of 09/15/2024) Resolved Problems Problem Noted Date Diagnosed Date [...] as of this encounter (statuses as of 09/15/2024) Immunizations Name Administration Dates Next Due COVID-19 mRNA, LNP-s, No Pre serve, 2-Dose Series ([employer]) 07/20/2021 COVID-19, LNP-s, No Preserve , Burke-sucrose, Ages 12+ (Pfizer) 02/06/2022 COVID-19, MRNA-LNP, 24-25, P F, 50 MCG/0.5ML, IM, 12 YRS & ABOVE (Moderna - Spikevax) 07/10/2024 COVID-19, MRNA-LNP, PF, 50 M CG/0.5 mL, 12 YRS AND ABOVE, IM (MODERNA-Spikevax) 08/08/2023 Covid-19, Mrna, Lnp-s, Pf, B ivalent, 30 Mcg, IM, 12 yrs and above ([employer]) 07/10/2022 Pneumococcal Conjugate Vacc, 13 Valent (Prevnar) [...] No 04/29/2023 Does the household have a [facility] source of income? (Household - for ages [...] on file documented as of this encounter Last Filed Vital Signs Vital Sign Reading Time Taken Comments Blood Pressure 120/68 09/15/2024 3:36 PM EST Pulse 52 09/15/2024 3:36 PM EST Temperature 36.9 C (98.4 F) 09/15/2024 3:36 PM ES T Respiratory Rate 16 09/15/2024 3:36 PM EST Oxygen Saturation 96% 09/15/2024 3:36 PM EST Inhaled Oxygen Concentration - - Weight 49 kg (108 lb) 09/15/2024 3:36 PM EST Height 154.9 cm (5' 1") 09/15/2024 3:36 PM EST Body Mass Index 20.41 09/15/2024 3:36 PM EST documented in this encounter Functional Status * Are you deaf or do you have serious difficulty hearing? Answer Date of Assessment Author No 01/03/2021 6:35 PM EDT Elva Xiong, RN * Are you blind or do [...] 6:35 PM EDT Elva Xiong RN * Because of a physical, mental, or emotional condition, do you have difficulty doing errands alone such as visiting a doctors office or shopping? (15 years old or older) Answer Date of Assessment Author Yes 01/03/2021 6:35 PM Elva Caceres RN documented as of this encounter Mental Status * Because of a physical, mental, or emotional condition, do you have serious difficulty concentrating, remembering, or making decisions? 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 Patient describes episodic air hunger. Denies cough, wheezing, high-grade fever. Denies sick contacts. Recent evaluation by patient's psychiatrist recommended treatment trial with Xanax. Current inhalers included Breo and rescue albuterol. Patient had not been taking her inhalers lately. CT scan chest 04/2024 shows unchanged pulmonary nodules and scattered ground- glass changes. Patientmaintains baseline physical activity status. Describes episodic dry cough. Denies heartburn, describes occasional nasal congestion. Describes physically active lifestyle at the assisted living facility including participation with physical therapy. Current bronchodilator regimen includes Breo once daily along with albuterol 2 puffs twice daily. Physical examination is significant for class 3 throat, clear lung moss, regular cardiac rhythm, soft, nontender abdomen, no lower extremity edema and pleasant nonlateralizing Neuro examination. CT chest shows scattered ground-glass changes along with peripheral parenchymal infiltrates consistent with post COVID parenchymal changes. Pulmonary function testing today shows normal appearing ventilatory pattern without bronchodilator response. Overall clinical picture is consistent with post viral cough and postviral malaise. Role of hypoxicrespiratory status leading to fatigue and tiredness and limited exercise tolerance was discussed. Nocturnal oximetry along with 6 minute walk test will be requested. Current bronchodilator regimen will be maintained. Importance of maintaining physically active lifestyle with fall precautions was discussed. Pulmonary clinic follow-up in 04/2024 to reassess symptoms status, and discuss n further managementplan. Patient was advised to contact the office with any change in symptoms status. Assessment Central hyperventilation Dyspnea and respiratory abnormalities (Primary) Lung nodules Post COVID I LD Hypoxemia Plan: Maintain Physical activity C/w Breo +/- Rescue Albuterol Agree with xanax Rx trial F/u 7 months Follow-up: Return in about 7 months (around 04/15/2025). | Check-out note: Dyspnea and respiratory abnormalities (Primary) Lung nodules Post COVID I LD Hypoxemia Pulmonary nodules, stable Post Covid ILD Dyspnea Plan: Maintain Physical activity C/w Breo +/- Rescue Albuterol Agree with xanax Rx trial F/u 7 months I spent a total of 20-29 minutes (exact time 30 mins) on the date of service in preparation, delivery, and documentation of the care provided to Cathy Rodriguez excluding any time spent in the performance of separately billed services or time spent by another provider/QHP. Ji Holder MD Data review: Following reports, and data as outlined below was personally reviewed and interpreted by myself. XR CHEST 2 VIEWS-08/13/2024 4:20 pm HISTORY Cough COMPARISON Chest x-ray dated 07/17/2024 TECHNIQUE Chest x-ray two views FINDINGS The cardiomediastinal silhouette is normal in size. There are stable bilateral reticular densities which may be secondary to chronic interstitial lung disease. There are no pulmonary consolidations, pleural effusions or pneumothorax. There is no acute bone abnormality. IMPRESSION IMPRESSION Stable appearance of the chest. No acute pulmonary abnormality seen radiographically. CT CHEST WO CONTRAST DATE and TIME: 04/27/2024 2:22 pm FINDINGS LUNGS: Mild peripheral reticular opacities with basilar predominance and mild scattered ground-glass opacities throughout both lungs are not significantly changed compared to the prior exam. There ismild bronchiectasis at the lung bases. A few scattered pulmonary nodules measuring up to 5 millimeter unchanged. IMPRESSION 1. Unchanged mild basilar predominant fibrotic changes. 2. Unchanged pulmonary nodules measuring up to 5 millimeters. Subjective CC: Chief Complaint Patient presents with Follow Up Restrictive Airway Disease HPI: Nursing Notes: Brittany Shetty LPN 09/15/24 1617 Signed Chief Complaint Patient presents with Follow Up Restrictive Airway Disease MMRC Dyspnea Scale = 2 (On level ground, I walk slower than people of the same age because of breathlessness or have to stop for breath when walking at my own) Interm History/Respiratory Symptoms Cough: occ yellow Hemoptysis: no Sinus Symptoms: runny nose Hospitalizations: no ED Trips: no Triggers: exertion Nocturnal: cough,wheeze,SOB CPAP/BiPAP/O2: no Objective Filed Vitals: 09/15/24 1536 BP: 120/68 Pulse: 52 Resp: 16 Temp: 36.9 C (98.4 F) TempSrc: Tympanic SpO2: 96% Weight: 49 kg (108 lb) Height: 1.549 m (5' 1") Exam: Const: No signs of acute distress present. Head/Face: Normal on inspection. Eyes: Conjunctivae clear. Pupils equal round and reactive to light. ENMT: Oropharynx: No erythema, exudate or masses. Posterior pharynx is normal. Neck: Supple and symmetric. Resp: Respiratory examination as outlined above CV: Rate is regular. Rhythm is regular. No heart murmur appreciated. Extremities: No edema of the lower limbs bilaterally. Skin: Skin is warm and dry. Neuro: Coordination normal. No involuntary movement. Psych: Patient's attitude is cooperative. Mood is normal. Affect is normal. Tests reviewed with the patient: XR CHEST 2 VIEWS Result Date: 08/16/2024 IMPRESSION Stable appearance of the chest. No acute pulmonary abnormality seen radiographically. XR CHEST 2 VIEWS Result Date: 07/17/2024 IMPRESSION Hyperinflation. No focal consolidation. XR C SPINE 4-5 VIEWS Result Date: 07/01/2024 IMPRESSION No acute finding. XR SHOULDER, 2 OR MORE VIEWS Result Date: 04/30/2024 IMPRESSION 1. No fracture. 2. Mild degenerative changes. CT CHEST WO CONTRAST Result Date: 04/29/2024 IMPRESSION 1. Unchanged mild basilar predominant fibrotic changes. 2. Unchanged pulmonary nodules measuring up to 5 millimeters. Available Radiologic data was reviewed by me in PACS. The images were shown to the patient and findings were discussed with the patient. HOME MEDICATIONS: Melatonin 3 MG Oral Tablet Fluticasone Furoate-Vilanterol 200-25 MCG/ACT Inhalation Aerosol Powder Breath Activated (BREO ellipta) Gabapentin 100 MG Oral Capsule (Neurontin) Famotidine 20 MG Oral Tablet (Pepcid) Pantoprazole Sodium 40 MG Oral Tablet Delayed Release (Protonix) Insulin Glargine Solostar 100 UNIT/ML Subcutaneous Solution Pen-injector (Lantus SoloStar) metFORMIN HCl ER 500 MG Oral Tablet Extended Release 24 Hour (Glucophage XR) Ventolin HFA 108 (90 Base) MCG/ACT Inhalation Aerosol Solution OneTouch Ultra In Vitro Strip (Glucose Blood) OneTouch UltraSoft Lancets Ibuprofen 200 MG Oral Capsule Loratadine 10 MG Oral Capsule Vitamin E 180 MG (400 UNIT) Oral Capsule Womens Multi Vitamin & Mineral Oral Tablet BD Pen Needle Rody 2nd Gen 32G X 4 MM (Insulin Pen Needle) OneTouch Ultra 2 w/Device Kit Mirtazapine 15 MG Oral Tablet (Remeron) Venlafaxine HCl ER 150 MG Oral Capsule Extended Release 24 Hour (Effexor XR) busPIRone HCl 10 MG Oral Tablet (Buspar) ROS: No reported history of Hemoptysis, Hematemesis, Melena No reported history of Dysuria, Hematuria, Flank Pain No reported history of chronic headache, seizures No reported history of Fall or trauma . No reported history of recent change in weight or appetite. Past Medical History: Diagnosis Date Arthritis of midtarsal joint 07/16/2020 Cardiac murmur, previously undiagnosed 07/16/2020 DM type 2 with diabetic peripheral neuropathy (HCC) 11/08/2017 GERD (gastroesophageal reflux disease) Hiatal hernia High risk for fracture due to osteoporosis by DEXA scan 09/24/2017 MDD (major depressive disorder) Motion sickness 07/16/2020 Not very severe. Scopolamine patch too strong. Takes half a Dramamine or similar. Osteoarthritis Recurrent major depressive disorder, in remission (HCC) 11/08/2017 Past Surgical History: Procedure Laterality Date ARTHROPLASTY KNEE TOTAL Bilateral COLONOSCOPY N/A 2011 COLONOSCOPY, DIAGNOSTIC (RECTUM) 04/20/2020 normal / [facility] DRAIN LOWER LEG ABSCESS/HEMATOMA Right 07/16/2020 INCISION AND DRAINAGE LEG,KNEE, ANKLE DEEP performed by Pancho Tijerina MD at OR [facility] EGD, FLEXIBLE, DIAGNOSTIC 04/20/2020 reflux esophagitis, hiatal hernia / [facility] MANUAL PREPARATION AND INSERTION OF DEEP DRUG-DELIVERY DEVICE Right 07/19/2020 PREP/INSERT DRUG-DELIVERY DEVICE(S) DEEP performed by Ha Oviedo MD at OR [facility] REMOVAL OF APPENDIX N/A 1979 REMOVAL OF KNEE PROSTHESIS Right 07/19/2020 REMOVAL OF TOTAL KNEE PROSTHESIS performed by Ha Oviedo MD at OR [facility] REMOVE DRUG IMPLANT DEVICE Right 01/03/2021 REMOVAL NON BIODEGRADABLE DRUG DELIVERY IMPLANT performed by Ha Oviedo MD at OR [facility] REMOVE TONSILS & ADENOIDS, UNDER 12 Bilateral REVISE KNEE JOINT REPLACEMENT Right 01/03/2021 TOTAL KNEE REVISION FEMUR AND TIBIA performed by Ha Oviedo MD at OR [facility] TENDON SHEATH INCISION, FINGER Right 09/08/2018 TRIGGER FINGER RELEASE performed by Kathryn Sevilla DO at OR [facility] Social History Socioeconomic History Marital status: Number of children: 3 Occupational History Occupation: retired Tobacco Use Smoking status: Former Current packs/day: 0.00 Average packs/day: 0.5 packs/day for 13.0 years (6.5 ttl pk-yrs) Types: Cigarettes Start date: 1959 Quit date: 1973 Years since quittin.9 Smokeless tobacco: Never Tobacco comments: stopped 50 yrs ago Vaping Use Vaping status: Never Used Substance and Sexual Activity Alcohol use: Yes Comment: socially Drug use: No Sexual activity: Not Currently Partners: Male Social Needs Financial Resource Strain: Low Risk (04/29/2023) Financial Resource Strain Do you have any trouble paying for your medications, or do you think you might in the future? (Adult - for ages 18 years and over): No Food Insecurity: No Food Insecurity (04/29/2023) Food Insecurity Do you need food for this week? (Adult - for ages 18 years and over): No Transportation Needs: No Transportation Needs (04/29/2023) Transportation Needs Do you have trouble getting a ride to medical visits or work? (Adult - for ages 18 years and over):Never True Social Connections: Socially Integrated (04/29/2023) Social Connections How often do you feel lonely or isolated from those around you? (Adult - for ages 18 years and over): Never Housing Stability: Low Risk (04/29/2023) Housing Stability Do you currently live in a mcfp or have no steady place to sleep at night? (Adult - for ages 18 years and over): No Do you think you are at risk of becoming homeless? (Adult - for ages 18 years and over): No Family History Problem Relation Name Age of Onset Breast Cancer No significant family history Review of patient's allergies indicates: Allergen Reactions Tay Inhibitors Edema face/lips/tongue Statins Face swelling Codeine Nausea/vomiting Causes vomiting. documented in this encounter Nursing Notes * Brittany Shetty LPN - 09/15/2024 3:40 PM EST Chief Complaint Patient presents with Follow Up Restrictive Airway Disease MMRC Dyspnea Scale = 2 (On level ground, I walk slower than people of the same age because of breathlessness or have to stop for breath when walking at my own) Interm History/Respiratory Symptoms Cough: occ yellow Hemoptysis: no Sinus Symptoms: runny nose Hospitalizations: no ED Trips: no Triggers: exertion Nocturnal: cough,wheeze,SOB CPAP/BiPAP/O2: no documented in this encounter Plan of Treatment Upcoming Encounters Date Type Department Care Team (Late st Contact Info) Description 11/04/2024 4:00 PM EST Office Visit General Internal Medicine [facility] [place] [address] [place] [address] Jarret Gardner MD [address] [facility] [place] [address] 05/12/2025 2:15 PM EDT Imaging Radiology [facility] [address] [facility] [place] [address] [place] [address] Health Maintenance Due Date Last Done Comments [...] this encounter Medical Devices Implanted Type Area Emergency Vehicle Operator Device Identifier Shelf Expiration Date Model / Serial / Lot Cement Bone Palacos R 1x40g - [id number] Implanted:Qty: 4 on 07/19/2020 by Ha Oviedo MD at OR [facility] Right: Knee [facility] 08/20/2023 [id number] / / [id number] Jose Patella Implanted:Qty: 1 on 01/03/2021 by Ha Oviedo MD at OR [facility] Right: Knee 04/19/2024 [id number] -10 / / [id number] Cement Bone Palacos R 1x40g - [id number] Implanted:Qty: 5 on 01/03/2021 by Ha Oviedo MD at OR [facility] Right: Knee [facility] 08/20/2024 [id number] / / [id number] Jose Femur Implanted:Qty: 1 on 01/03/2021 by Ha Oviedo MD at OR [facility] Right: Knee 01/18/2030 [id number] -02 / / [id number] Jose Stem Implanted:Qty: 1 on 01/03/2021 by Ha Oviedo MD at OR [facility] Right: Knee 06/05/2030 [id number] -14 / / [id number] Plug 20/24mm Insert - [id number] Implanted:Qty: 1 on 01/03/2021 by Ha Oviedo MD at OR [facility] Right: Knee [employer] 12/19/2023 [id number] -01 / / [id number] Jose Stem Implanted:Qty: 1 on 01/03/2021 by Ha Oviedo MD at OR [facility] Right: Knee 12/18/2029 [id number] -14 / / [id number] Jose Tibia Implanted:Qty: 1 on 01/03/2021 by Ha Oviedo MD at OR [facility] Right: Knee 02/17/2029 [id number] -02 / / [id number] Plugs W/Disp Insert 12mm/16mm - [id number] Implanted:Qty: 1 on 01/03/2021 by Ha Oviedo MD at OR [facility] Right: Knee [employer] 08/20/2023 [id number] -01 / / [id number] Pratik Bland 29mm - [id number] Implanted:Qty: 1 on 01/03/2021 by Ha Oviedo MD at [facility] Right: Knee [employer] 06/20/2026 [id number] -29 / / [id number] documented as of this encounter Visit Diagnoses Diagnosis Dyspnea and respiratory abnormalities- Primary Other dyspnea and respiratory abnormality Pneumonia due to COVID-19 virus Screening mammogram for breast cancer documented in this encounter Advance Directives Documents on File Type Date Recorded 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 Yes, not currently available * Full Code [...] Power of Attor randolph? No Care Teams Cracker Sprayer Relationship Specialty Start Date End Date Jarret Gardner MD [address] [facility] [place] [address] PCP - General Internal Medicine 03/26/24 documented as of this encounter
--- OUTSIDE RECORDS SUMMARY | 2024-09-17 19:12 | External Medical Summary | Summary of Care ---
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 [facility] Reason for Referral? Asthma/COPD Reason for Visit * Reason Onset Date Comments Test Results Patient accompan ied by daughter Maicol Weight Loss Loss of Appetite Short of Breath When walking; cal paul also states patient wakes up at night and has shortness of breath Medication Administration 09/07/2024 Flu an d/or Pneumo Inj Encounter Details Date Type Department Care Team (Late st Contact Info) Description 09/07/2024 4:00 PM EST Office Visit General Internal Medicine [facility] Patel [address] [facility] [place] [address] Vianney Cardenas PA-C [address] [facility] [place] [address] CAIN (dyspnea on exertion)*; Moderate persistent reactive airway disease without complication; Elevated LFTs; Poor appetite; Loss of weight; Need for prophylactic vaccination and inoculation against influenza Allergies Active Allergy Reactions Criticality Noted Date Comments Tay Inhibitors Edema face/lips/tongue High 7 Codeine Nausea/vomiting Low 02/12/2018 Causes vomiting. Statins 11/12/2022 Face swelling documented as of this encounter (statuses as of 09/07/2024) Medications busPIRone HCl 10 MG Oral Tablet (Buspar)Indicati ons:Anxiety Take by mouth 2 times a day. 15 mg in the AM and 10 mg in the PM 60 Tab 3 07/10/20 21 Active Venlafaxine HCl ER 150 MG Oral Capsule Extended Release 24 Hour (Effexor XR) Take 1 Capsule by mouth in the morning and 1 Capsule before bedtime. 05/31/20 22 Active Mirtazapine 15 MG Oral Tablet (Remeron) Take 1 Tablet by mouth at bedtime. 06/11/20 22 Active Continuity SoftwareTouch Ultra 2 w/Device KitIndications:D iabetes mellitus type 2, insulin dependent (HCC) Use as directed to monitor blood sugar. 1 Each 1 11/15/19 23 Active BD Pen Needle Rody 2nd Gen 32G X 4 MM (Insulin Pen Needle) Use with Lantus pen E11.9 100 Each 3 01/31/20 23 Active Vitamin E 180 MG (400 UNIT) [...] times a day as directed 300 Each 11/06/19 24 Active OneTouch Ultra In Vitro Strip (Glucose Blood)Indication s:Diabetes mellitus type 2, insulin dependent (HCC) Use as directed to check blood sugar 3 times a day. 100 Strip 11/06/19 24 Active Ventolin HFA 108 (90 Base) MCG/ACT Inhalation Aerosol SolutionIndicati ons:Bronchitis, complicated Inhale 2 Puffs by mouth every 4 hours as needed for Wheezing. 18 g 04/01/20 24 Active metFORMIN HCl ER 500 MG Oral Tablet Extended Release 24 Hour (Glucophage XR) TAKE ONE TABLET BY MOUTH TWICE A DAY IN THE MORNING AND IN THE EVENING 180 Tablet 2 04/25/20 24 Active Insulin Glargine Solostar 100 UNIT/ML Subcutaneous Solution Pen-injector (Lantus SoloStar)Indicat ions:Diabetes mellitus type 2, insulin dependent (HCC) INJECT 16 UNITS UNDER THE SKIN EVERY NIGHT AT BEDTIME 15 mL 1 05/07/20 24 Active Pantoprazole Sodium 40 MG Oral Tablet Delayed Release (Protonix) TAKE ONE TABLET BY MOUTH EVERY MORNING 90 Tablet 3 05/22/20 24 Active Famotidine 20 MG Oral Tablet (Pepcid)Indicati ons:Gastroesopha geal reflux disease without esophagitis TAKE ONE TABLET BY MOUTH EVERY MORNING AND 1 TABLET BEFORE BEDTIME 180 Tablet 3 06/24/20 24 Active Gabapentin 100 MG Oral Capsule (Neurontin) Take 1 Capsule by mouth in the morning and 1 Capsule at noon and 1 Capsule before bedtime. 90 Capsule 5 07/06/20 24 Active Additional Information Patient taking differently:100 mg OralBID (.AM/PM), Reported on 09/07/2024 Fluticasone Furoate-Vilanter ol 200-25 MCG/ACT Inhalation Aerosol Powder Breath Activated (BREO ellipta)Indicati ons:Moderate persistent reactive airway disease without complication Inhale 1 Puff by mouth in the morning. 60 Blister Dosing Unit 5 07/15/20 24 Active Melatonin 3 MG Oral Tablet Take 1 Tablet by mouth at bedtime. Active Melatonin 5 MG Oral Tablet Take 1 Tablet by mouth at bedtime. 024 Discontin ued(Medic ation List Clean Up) Diclofenac Sodium 1 % External Gel Apply topically to affected area 4 times a day as needed for Pain. Apply to skin as needed for pain 024 Discontin ued(Medic ation List Clean Up) documented as of this encounter (statuses as of 09/07/2024) Active Problems Problem Noted Date Diagnosed Date [...] as of this encounter (statuses as of 09/07/2024) Resolved Problems Problem Noted Date Diagnosed Date Resolved Date Pneumonia due to COVID-19 virus 04/29/2023 03/25/2024 Age-related osteoporosis wit hout current pathological fracture 04/29/2023 03/25/2024 Acute blood loss anemia 01/04/2021 06/0 02/2024 Arthritis of midtarsal joint 07/16/2020 03/25/2024 Effusion [...] hip NOT osteoporotic in 2022. Spine invalid 2 degenerative changes. documented as of this encounter (statuses as of 09/07/2024) Immunizations Name Administration Dates Next Due COVID-19 mRNA, LNP-s, No Pre serve, 2-Dose Series ([employer]) 07/20/2021 COVID-19, LNP-s, No Preserve , Burke-sucrose, Ages 12+ ([employer]) 02/06/2022 COVID-19, MRNA-LNP, 24-25, P F, 50 MCG/0.5ML, IM, 12 YRS & ABOVE (Moderna - Spikevax) 07/10/2024 COVID-19, MRNA-LNP, PF, 50 M CG/0.5 mL, 12 YRS AND ABOVE, IM (MODERNA-Spikevax) 08/08/2023 Covid-19, Mrna, Lnp-s, Pf, B ivalent, 30 Mcg, IM, 12 yrs and above ([employer]) 07/10/2022 Pneumococcal Conjugate Vacc, 13 Valent (Prevnar) [...] 1 960 - 1972 Smokeless Tobacco: Never Tobacco Cessation:Counseling Given: Not Answered Comments:stopped 50 yrs ago Alcohol Use Standard [...] Sign Reading Time Taken Comments Blood Pressure 104/64 09/07/2024 4:00 PM EST Pulse 92 09/07/2024 4:00 PM EST Temperature 36.3 C (97.4 F) 09/07/2024 4:00 PM ES T Respiratory Rate 20 09/07/2024 4:00 PM EST Oxygen Saturation 95% 09/07/2024 4:00 PM EST room air Inhaled Oxygen Concentration - - Weight 49.2 kg (108 lb 8 oz) 09/07/2024 4:00 PM EST Height - - Body Mass Index 20.5 05/07/2024 1:53 PM EDT documented in this encounter Functional Status * [...] of Assessment Author No 01/03/2021 6:35 PM Elva Caceres RN * Because of a physical, mental, [...] Elva Caceres RN documented in this encounter Patient Instructions * Patient Instructions* Malcom Stuart RN - 09/07/2024 4:04 PM EST ~~PATIENT INSTRUCTIONS FOR FLU SHOT~~ Possible side effects of influenza vaccine, (flu shot), are usually mild and include: 1. Soreness or redness at injection site 2. Low grade fever 3. Body aches You may use Tylenol/Acetaminophen as needed for these symptoms. LET YOUR DOCTOR KNOW IMMEDIATELY IF YOU HAVE DIFFICULTY BREATHING OR SWALLOWING, EXPERIENCE ITCHINGOF FEET OR HANDS, HAVE SWELLING OF EYES, FACE OR INSIDE OF NOSE. documented in this encounter Progress Notes * Vianney Cardenas PA-C - 09/07/2024 4:09 PM EST Images from the original note were not included. History of Present Illness Cathy Rodriguez is a 84 year old female that presents for Test Results (Patient accompanied by daughter Maicol), Weight Loss, Loss of Appetite, Short of Breath (When walking; daughter also states patient wakes up at night and has shortness of breath), and Medication Administration (Flu and/or Pneumo Inj) Pt here today for an acute visit with several concerns. Accompanied by her daughter. Pt recently had labs that are showing mildly elevated LFTs. Initially pt denied any new medications or supplementsbut then reported she had recently taken an antibiotic and other medications that were given by an urgent care prior to having the labs drawn. Denies N/V, abd pain, or bowel changes. Pt's daughter is also concerned about weight loss. Noted weight is up 2# from last visit. Pt reports she doesn't have an appetite and is not eating as much as she should. Pt lives alone--daughter that accompanies her today states she has asked the pt to move closer to her in [place], but the pt declines. Lastly, pt c/o ongoing CAIN. Had seen Pul over the summer--looks like 6 min walk test and overnightpulse oximetry were recommended. Pt states she doesn't recall this being discussed and thought she was discharged from [facility]'s care. Note recommended for her to f/up in 1 year. Review of Systems: See HPI for pertinent positives. All other review of systems is negative. Physical Exam Vitals: 09/07/24 1600 Temp: 36.3 C (97.4 F) Pulse: 92 Resp: 20 SpO2: 95% BP: 104/64 Physical Exam Constitutional: General: She is not in acute distress. Appearance: She is not diaphoretic. HENT: Mouth/Throat: Mouth: Mucous membranes are moist. Pharynx: Oropharynx is clear. Cardiovascular: Rate and Rhythm: Normal rate and regular rhythm. Pulmonary: Effort: Pulmonary effort is normal. Breath sounds: Normal breath sounds. No wheezing. Abdominal: Palpations: Abdomen is soft. Tenderness: There is no abdominal tenderness. Musculoskeletal: Right lower leg: No edema. Left lower leg: No edema. Skin: General: Skin is warm and dry. Neurological: General: No focal deficit present. Mental Status: She is alert. I have reviewed the following results: Assessment and Plan CAIN (dyspnea on exertion) Referral placed back to [facility]. Will also send phone note Re: 6 min walk test and overnight oximetry. 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 - PULMONARY REFERRAL OP Elevated LFTs Suspect a transient elevation from recent medications. Will have her recheck in a few weeks. - HEPATIC FUNCTION PANEL; Future Poor appetite Discussed importance of eating adequate calories and protein to fuel the body. If not providing adequate nutrition, this could certainly affect her endurance and strength. Discussed nutrition referral but pt declines. Also discussed addition of Boost or Ensure type drinks to bolster nutrition. Loss of weight See above. Need for prophylactic vaccination and inoculation against influenza Flu vac given today. - INFLUENZA VAC., TRIVALENT, HD, PF, 65 AND ABOVE, 0.5 ML IM (FLUZONE HD) Wrap-Up Follow Up: Return if symptoms worsen or fail to improve. Time: I spent a total of 40-54 minutes (exact time 42 mins) on the date of service in preparation, delivery, and documentation of the care provided to Cathy Rodriguez excluding any time spent in the performance of separately billed services. * Malcom Stuart RN - 09/07/2024 4:04 PM EST PRE - ADMINISTRATION DOCUMENTATION Are you experiencing any cold symptoms or fever? No Have you had Guillain-Hollywood Syndrome (an illness that causes paralysis) within the last 6 weeks? No Have you had the flu shot in the past? YES Have you ever had a reaction to the flu shot? No Malcom Stuart RN, 09/07/2024 4:04 PM documented in this encounter Nursing Notes * Malcom Stuart RN - 09/07/2024 4:13 PM EST Ambulated with patient one time around the hallway in office. Lowest O2 saturation while ambulatingwas 95%. documented in this encounter Plan of Treatment Upcoming Encounters Date Type Department Care Team (Late st Contact Info) Description 11/04/2024 4:00 PM EST Office Visit General Internal Medicine [facility] [address] [facility] [place] [address] Jarret Gardner MD [address] [facility] [place] [address] 05/12/2025 2:15 PM EDT Imaging Radiology [address] [facility] [place] [address] Scheduled Orders Name Type Priority Associated Diagnoses Orde r Schedule HEPATIC FUNCTION PANEL Lab Routine Elevated LFTs Expected: 10/07/2024 (Approximate), Expires: 09/07/2025 Scheduled Referrals Name Type Priority Associated Diagnoses Orde r Schedule PULMONARY REFERRAL OP Referral Within 3 days (urgent) CAIN (dyspnea on exertion) Moderate persistent reactive airway disease without complication Ordered: 09/07/2024 Health Maintenance Due Date Last Done Comments [...] this encounter Medical Devices Implanted Type Area Back Strip Machine Operator Device Identifier Shelf Expiration Date Model / Serial / Lot Cement Bone Palacos R 1x40g - [id number] Implanted:Qty: 4 on 07/19/2020 by Ha Oviedo MD at OR [facility] Right: Knee [facility] 08/20/2023 [id number] / / [id number] Jose Patella Implanted:Qty: 1 on 01/03/2021 by Ha Oviedo MD at OR [facility] Right: Knee 04/19/2024 [id number] -10 / / [id number] Cement Bone Palacos R 1x40g - [id number] Implanted:Qty: 5 on 01/03/2021 by Ha Oviedo MD at OR [facility] Right: Knee [facility] 08/20/2024 [id number] / / [id number] Jose Femur Implanted:Qty: 1 on 01/03/2021 by Ha Oviedo MD at OR [facility] Right: Knee 01/18/2030 42-5046-054 -02 / / [id number] Jose Stem Implanted:Qty: 1 on 01/03/2021 by Ha Oviedo MD at OR [facility] Right: Knee 06/05/2030 42-5600-075 -14 / / [id number] Plug 20/24mm Insert - [id number] Implanted:Qty: 1 on 01/03/2021 by Ha Oviedo MD at OR [facility] Right: Knee [employer] 12/19/2023-8011-020 - / / [id number] Jose Stem Implanted:Qty: 1 on 01/03/2021 by Ha Oviedo MD at OR [facility] Right: Knee 12/18/2029 [id number] -14 / / [id number] Jose Tibia Implanted:Qty: 1 on 01/03/2021 by Ha Oviedo MD at OR [facility] Right: Knee 02/17/2029 42-5420-064 -02 / / [id number] Plugs W/Disp Insert 12mm/16mm - [id number] Implanted:Qty: 1 on 01/03/2021 by Ha Oviedo MD at OR [facility] Right: Knee [employer] 08/20/2023 00-8011-010 - / / [id number] Patella Persona 29mm - [id number] Implanted:Qty: 1 on 01/03/2021 by Ha Oviedo MD at [facility] Right: Knee [employer] 06/20/2026 42-5400-000 -29 / / [id number] documented as of this encounter Visit Diagnoses Diagnosis CANI (dyspnea on exertion)- Primary Other dyspnea and respiratory abnormality Moderate persistent reactive airway disease without complication Elevated LFTs Other abnormal blood chemistry Poor appetite Anorexia Loss of weight Need for prophylactic vaccination and inoculation against influenza Screening mammogram for breast cancer documented in this encounter Advance Directives Documents on File Type Date Recorded 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 Yes, not currently available * Full Code [...] Power of Attor randolph? No Care Teams Bale Piler Relationship Specialty Start Date End Date Jarret Gardner MD [address] [facility] [place] [address] PCP - General Internal Medicine 03/26/24 documented as of this encounter
--- OUTSIDE RECORDS SUMMARY | 2024-09-17 19:13 | External Medical Summary | Summary of Care ---
Author Name Unknown Organization [facility] Address [address] [place] [address] Phone [phone] Care Team Providers Care Heavy Truck Technician Name Role Phone Jarret Gardner MD Primary Care Provider + Encounter Details Date Type Department Care Team (Late st Contact Info) Description 09/01/2024 Orders Only Laboratory [facility] [place] [address] [place] [id number] Robin Fritz MD [address] [facility] [address] [place] [address] Encounter for long-term (current) use of medications*; Vitamin deficiency Allergies Active Allergy Reactions Criticality [...] mRNA, LNP-s, No Pre serve, 2-Dose Series ([employer]) 07/20/2021 COVID-19, LNP-s, No Preserve , Burke-sucrose, Ages 12+ ([employer]) 02/06/2022 COVID-19, MRNA-LNP, 24-25, P F, 50 MCG/0.5ML, IM, 12 YRS & ABOVE (Moderna - Spikevax) 07/10/2024 COVID-19, MRNA-LNP, PF, 50 M CG/0.5 mL, 12 YRS AND ABOVE, IM (MODERNA-Spikevax) 08/08/2023 Covid-19, Mrna, Lnp-s, Pf, B ivalent, 30 Mcg, IM, 12 yrs and above (ProMed) 07/10/2022 Pneumococcal Conjugate Vacc, 13 Valent (Prevnar) [...] PM EST Office Visit General Internal Medicine [facility] [address] [facility] [place] [address] Jarret Gardner MD 200 [facility] [place] [address] 05/12/2025 2:15 PM EDT Imaging Radiology [address] 132 [facility] [place] [address] Pending Results Name Type Priority Associated Diagnoses Date /Time COMPREHENSIVE METABOLIC PANEL Lab Routine Encounter for long-term (current) use of medications Vitamin deficiency 09/01/2024 3:44 PM EST VITAMIN B12 Lab Routine Encounter for long-term (current) use of medications Vitamin deficiency 09/01/2024 3:44 PM EST 1,25-DIHYDROXY VITAMIN D Lab Routine Encounter for long-term (current) use of medications Vitamin deficiency 09/01/2024 3:44 PM EST Scheduled Orders Name Type Priority Associated Diagnoses Orde r Schedule COMPREHENSIVE METABOLIC PANEL Lab Routine Encounter for long-term (current) use of medications Vitamin deficiency Expected: 09/01/2024, Expires: 09/01/2025 VITAMIN B12 Lab Routine Encounter for long-term (current) use of medications Vitamin deficiency Expected: 09/01/2024, Expires: 09/01/2025 1,25-DIHYDROXY VITAMIN D Lab Routine Encounter for long-term (current) use of medications Vitamin deficiency Expected: 09/01/2024, Expires: 09/01/2025 Health Maintenance Due Date Last Done Comments Adult Wellness Visit 03/24/2019 03/24/2018 Depression Monitoring 01/15/2024 01/14/2023 Influenza Vaccine (FLU shot) (#1) 2024 08/08/2023, 07/08/2022, 07/05/2021, Additional history exists COVID-19 Vaccine ( season) 2024 07/10/2024, 08/08/2023, 07/10/2022, Additional history exists Diabetic Foot Exam 09/04/2024 09/04/2023, 0 07/05/2021, 03/24/2018 Albumin/Creatinine Ratio 09/10/2024 023, 11/01/2022, 07/05/2021, Additional history exists HbA1c 12/27/2024 06/29/2024, 0603/2024, 09/10/2023, Additional history exists Diabetic Eye Exam [...] this encounter Medical Devices Implanted Type Area Building Stonecutter Device Identifier Shelf Expiration Date Model / Serial / Lot Cement Bone Palacos R 1x40g - [id number] Implanted:Qty: 4 on 07/19/2020 by Ha Oviedo MD at [place] [facility] Right: Knee [employer] 08/20/2023 [id number] / / [id number] Jose Patella Implanted:Qty: 1 on 01/03/2021 by Ha Oviedo MD at [place] [facility] Right: Knee 04/19/2024 42-5228-004 -10 / / [id number] Cement Bone Palacos R 1x40g - [id number] Implanted:Qty: 5 on 01/03/2021 by Ha Oviedo MD at [place] [facility] Right: Knee [employer] 08/20/2024 [id number] / / [id number] Jose Femur Implanted:Qty: 1 on 01/03/2021 by Ha Oviedo MD at [place] [facility] Right: Knee 01/18/2030 42-5046-054 -02 / / [id number] Jose Stem Implanted:Qty: 1 on 01/03/2021 by Ha Oviedo MD at [place] [facility] Right: Knee 06/05/2030 42-5600-075 -14 / / [id number] Plug 20/24mm Insert - [id number] Implanted:Qty: 1 on 01/03/2021 by Ha Oviedo MD at [place] [facility] Right: Knee [employer] 12/19/2023 00-8011-020 - / / [id number] Jose Stem Implanted:Qty: 1 on 01/03/2021 by Ha Oviedo MD at [place] [facility] Right: Knee 12/18/2029 42-5570-001 -14 / / [id number] Jose Tibia Implanted:Qty: 1 on 01/03/2021 by Ha Oviedo MD at [place] [facility] Right: Knee 02/17/2029 42-5420-064 -02 / / [id number] Plugs W/Disp Insert 12mm/16mm - [id number] Implanted:Qty: 1 on 01/03/2021 by Ha Oviedo MD at [place] [facility] Right: Knee [employer] 08/20/2023 00-8011-010 -01 / / [id number] Patella Persona 29mm - [id number] Implanted:Qty: 1 on 01/03/2021 by Ha Oviedo MD at [place] [facility] Right: Knee [employer] 06/20/2026 42-5400-000 -29 / / [id number] documented as of this encounter Visit Diagnoses Diagnosis Encounter for long-term (current) use of medications- Primary Encounter for long-term (current) use of other medications Vitamin deficiency Unspecified vitamin deficiency Screening mammogram for breast cancer documented in this encounter Advance Directives Documents on File Type Date Recorded 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 Yes, not currently available * Full Code [...] Power of Attor randolph? No Care Teams Heavy Truck Technician Relationship Specialty Start Date End Date Jarret Gardner MD [address] [place] [address] PCP - General Internal Medicine 03/26/24 documented as of this encounter
--- OUTSIDE RECORDS SUMMARY | 2024-09-17 19:13 | External Medical Summary | Summary of Care ---
Author Name Unknown Organization [facility] Address [address] [place] [address] Phone [phone] Care Team Providers Care Collision Estimator Name Role Phone Jarret Gardner MD Primary Care Provider + Encounter Details Date Type Department Care Team ([facility] st Contact Info) Description 08/13/2024 Orders Only Unspecified Department Osmani Carvalho CRNP [address] [place] [address] Cough* Allergies Active Allergy Reactions Criticality Noted Date Comments Tay Inhibitors Edema face/lips/tongue High 7 Codeine Nausea/vomiting Low 02/12/2018 Causes vomiting. Statins 11/12/2022 Face swelling documented as of this encounter (statuses as of 08/13/2024) Medications Medication Sig Dispensed Refills Start Date End Date Status busPIRone HCl 10 MG Oral Tablet (Buspar)Indication s:Anxiety Take by mouth 2 times a day. 15 mg in the AM and 10 mg in the PM 60 Tab 3 07/10/2021 Active Venlafaxine HCl ER 150 MG Oral Capsule Extended Release 24 Hour (Effexor XR) Take 1 Capsule by mouth in the morning and 1 Capsule before bedtime. 05/31/2022 Active Mirtazapine 15 MG Oral Tablet (Remeron) Take 1 Tablet by mouth at bedtime. 06/11/2022 Active PellianoTouch Ultra 2 w/Device KitIndications:Ilda lu mellitus type 2, insulin dependent (HCC) Use as directed to monitor blood sugar. 1 Each 1 11/15/2022 Active BD Pen Needle Rody 2nd Gen 32G X 4 MM (Insulin Pen Needle) Use with Lantus pen E11.9 100 Each 3 01/30/2023 Active Vitamin E 180 MG (400 UNIT) Oral Capsule Take 1 Capsule by mouth at bedtime. Active Womens Multi Vitamin & Mineral Oral Tablet Take by mouth. Active Melatonin 5 MG Oral Tablet Take [...] by mouth at night Active OneTouch UltraSoft LancetsIndications :Diabetes mellitus type 2, insulin dependent ([facility]) Use as directed 3 times a day as needed (blood sugar). Use up to three times a day as directed 300 Each 11/06/2023 Active Mode Mediauch Ultra In Vitro Strip (Glucose Blood)Indications: Diabetes mellitus type 2, insulin dependent (HCC) Use as directed to check blood sugar 3 times a day. 100 Strip 11/06/2023 Active Ventolin HFA 108 (90 Base) MCG/ACT Inhalation Aerosol SolutionIndication s:Bronchitis, complicated Inhale 2 Puffs by mouth every 4 hours as needed for Wheezing. 18 g 04/01/2024 Active metFORMIN HCl ER 500 MG Oral Tablet Extended Release 24 Hour (Glucophage XR) TAKE ONE TABLET BY MOUTH TWICE A DAY IN THE MORNING AND IN THE EVENING 180 Tablet 2 04/25/2024 Active Insulin Glargine Solostar 100 UNIT/ML Subcutaneous Solution Pen-injector (Lantus SoloStar)Indicatio ns:Diabetes mellitus type 2, insulin dependent (HCC) INJECT 16 UNITS UNDER THE SKIN EVERY NIGHT AT BEDTIME 15 mL 1 05/07/2024 Active Pantoprazole Sodium 40 MG Oral Tablet Delayed Release (Protonix) TAKE ONE TABLET BY MOUTH EVERY MORNING 90 Tablet 3 05/22/2024 Active Famotidine 20 MG Oral Tablet (Pepcid)Indication s:Gastroesophageal reflux disease without esophagitis TAKE ONE TABLET BY MOUTH EVERY MORNING AND 1 TABLET BEFORE BEDTIME 180 Tablet 3 06/24/2024 Active Gabapentin 100 MG Oral Capsule (Neurontin) Take 1 Capsule by mouth in the morning and 1 Capsule at noon and 1 Capsule before bedtime. 90 Capsule 5 07/06/2024 Active Additional Information Patient not taking.Reported on 07/17/2024 Fluticasone Furoate-Vilanterol 200-25 MCG/ACT Inhalation Aerosol Powder Breath Activated (BREO ellipta)Indication s:Moderate persistent reactive airway disease without complication Inhale 1 Puff by mouth in the morning. 60 Blister Dosing Unit 5 07/15/2024 Active documented as of this encounter (statuses as of 08/13/2024) Active Problems Problem Noted Date Diagnosed Date [...] mity 07/16/2020 Cardiac murmur, previously undiagnosed 0 Overview: Systolic, blowing, 2-3/6 left lower sternal border [...] as of this encounter (statuses as of 08/13/2024) Resolved Problems Problem Noted Date Diagnosed Date Resolved Date Pneumonia due to COVID-19 virus 04/29/2023 03/25/2024 Age-related osteoporosis wit hout current pathological fracture 04/29/2023 03/25/2024 Acute blood loss anemia 01/04/2021 06/0 02/2024 Arthritis of midtarsal joint 07/16/2020 03/25/2024 Effusion of right knee 07/16/202003/25 Motion sickness 07/16/2020 07/20/2020 Overview: Not very severe. Scopolamine patch too strong. Takes half a Dramamine or similar. PONV (postoperative nausea and vomiting) 07/16/2020 03/25/2024 Overview: Sometimes. High risk for fracture due t o osteoporosis by DEXA scan 09/24/2017 03/25/2024 Overview: Present at L forearm in 2016. L hip NOT osteoporotic in 2022. Spine invalid 2/ degenerative changes. documented as of this encounter (statuses as of 08/13/2024) Immunizations Name Administration Dates Next Due COVID-19 mRNA, LNP-s, No Pre serve, 2-Dose Series (trivago) 07/20/2021 COVID-19, LNP-s, No Preserve , Burke-sucrose, Ages 12+ (Pfizer) 02/06/2022 COVID-19, MRNA-LNP, 23-24, P F, 50 MCG/0.5 mL, 12 YRS AND ABOVE, IM (MODERNA-Spikevax) 08/08/2023 COVID-19, MRNA-LNP, 24-25, P F, 50 MCG/0.5ML, IM, 12 YRS & ABOVE (Moderna - Spikevax) 07/10/2024 Covid-19, Mrna, Lnp-s, Pf, B ivalent, 30 Mcg, IM, 12 yrs and above (Pfizer) 07/10/2022 Pneumococcal Conjugate Vacc, 13 Valent (Prevnar) [...] ages 0-17 years) Not on file 04/29/2023 Sex and Gender Information Value Date Recorded Sex Assigned at Female 02/07/2019 1:00 PM EDT Gender Identity Female 02/07/2019 1:00 PM EDT Sexual Orientation Straight 02/07/2019 1: 00 PM EDT Job Start Date Occupation Industry Not on file Not on file Not on file documented as of this encounter Functional Status Functional Status Response Date of Assess ment Are you deaf or do you have serious difficulty h earing? No 01/03/2021 Are you blind or do you have serious difficulty seeing, even when wearing glasses? No 01/03/2021 Do you have serious difficul ty walking or climbing stairs? (5 years old or older) Yes 01/03/2021 Do you have difficulty dress ing or bathing? (5 years old or older) No 01/03/2021 Because of a physical, menta l, or emotional condition, do you have difficulty doing errands alone such as visiting a doctor s office or shopping? (15 years old or older) Yes 01/04/20 Cognitive Status Response Date of Assessm ent Because of a physical, menta l, or emotional condition, do you have serious difficulty concentrating, remembering, or making decisions? (5 years old or older) No 01/03/2021 documented as of this encounter Plan of Treatment Upcoming Encounters Date Type Department Care Team (Late st Contact Info) Description 11/04/2024 4:00 PM EST Office Visit General Internal Medicine [place] [facility] [address] [place] [address] Jarret Gardner MD [address] [place] [address] 05/12/2025 2:15 PM EDT Imaging [facility], [address] [place] [id number] Pending Results Name Type Priority Associated Diagnoses Date /Time XR CHEST 2 VIEWS Medical Imaging Routine Cough 08/13/2024 4:20 PM EDT Health Maintenance Due Date Last Done Comments Adult Wellness Visit 03/24/2019 03/24/2018 Depression Monitoring 01/15/2024 01/14/2023 Influenza Vaccine (FLU shot) (#1) 2024 08/08/2023, 07/08/2022, 07/05/2021, Additional history exists Diabetic Foot Exam 09/04/2024 [...] 10/21/2016, 07/05/2014 Zoster Vaccines Completed 05/18/2022, 04/14/2020 COVID-19 Vaccine Completed 07/10/2024, , 07/10/2022, Additional history exists HPV (Gardasil) Vaccine Aged Out No lo nger eligible based on patient's age to complete this topic Hepatitis B Vaccine Aged Out No longe r eligible based on patient's age to complete this topic MENINGOCOCCAL (MENACTRA/MENVEO) Aged Out No longer eligible based on patient's age to complete this topic documented as of this encounter Medical Devices Implanted Type Area Shrinking Machine Operator Device Identifier Shelf Expiration Date Model / Serial / Lot Cement Bone Palacos R 1x40g - [id number] Implanted:Qty: 4 on 07/19/2020 by Ha Oviedo MD at OR [facility] [place] [place] Right: Knee [facility] 08/20/2023 [id number] / / [id number] Jose Patella Implanted:Qty: 1 on 01/03/2021 by Ha Oviedo MD at OR [facility] [place] [place] Right: Knee 04/19/2024 [id number] -10 / / [id number] Cement Bone Palacos R 1x40g - [id number] Implanted:Qty: 5 on 01/03/2021 by Ha Oviedo MD at OR [facility] [place] [place] Right: Knee [facility] 08/20/2024 [id number] / / [id number] Jose Femur Implanted:Qty: 1 on 01/03/2021 by Ha Oviedo MD at OR [facility] [place] [place] Right: Knee 01/18/2030 [id number] -02 / / [id number] Jose Stem Implanted:Qty: 1 on 01/03/2021 by Ha Oviedo MD at OR [facility] [place] [place] Right: Knee 06/05/2030 42-5600-075 -14 / / [id number] Plug 20/24mm Insert - [id number] Implanted:Qty: 1 on 01/03/2021 by Ha Oviedo MD at OR [facility] [place] [place] Right: Knee [employer] 12/19/2023-8011-020 - / / [id number] Jose Stem Implanted:Qty: 1 on 01/03/2021 by Ha Oviedo MD at OR [facility] [place] [place] Right: Knee 12/18/2029 [id number] -14 / / [id number] Jose Tibia Implanted:Qty: 1 on 01/03/2021 by Ha Oviedo MD at OR [facility] [place] [place] Right: Knee 02/17/2029 [id number] -02 / / [id number] Plugs W/Disp Insert 12mm/16mm - [id number] Implanted:Qty: 1 on 01/03/2021 by Ha Oviedo MD at OR [facility] [place] [place] Right: Knee [employer] 08/20/2023-8011-010 - / / [id number] Patella Persona 29mm - [id number] Implanted:Qty: 1 on 01/03/2021 by Ha Oviedo MD at OR [facility] [place] [place] Right: Knee [employer] 06/20/2026 [id number] -29 / / [id number] documented as of this encounter Visit Diagnoses Diagnosis Cough- Primary Screening mammogram for breast cancer documented in this encounter Advance Directives Documents on File Type Date Recorded Patient Land Manager Expl anation Advance Directives and Living [...] the patient have Health Care Power of Final Inspector Motorcyles? Yes, not currently available * Full Code [...] Power of Attor randolph? No Care Teams Collision Estimator Relationship Specialty Start Date End Date Jarret Gardner MD [address] [place] [address] PCP - General Internal Medicine 03/26/24 documented as of this encounter
--- OUTSIDE RECORDS SUMMARY | 2024-09-17 19:13 | External Medical Summary | Continuity of Care Document ---
Author Name Unknown Organization [facility] [address] [facility] 2 Address [address] [facility] [address] [address] [id number] Care Team Providers Care Tariff Compiler Name Role Phone Ro Hood Primary Care Physician [phone] [id number] Date(s): 08/26/24 - 08/26/24 [facility] [address] [facility] [address] [facility] [address] [place], [place] [id number] Encounter Diagnosis AK (actinic keratosis)(Discharge Diagnosis) - 08/26/24 Discharge Disposition: Home or Self Care Attending Physician: MD Langston Thomas A Referring Physician: MD Langston Thomas A Allergies, Adverse Reactions, Alerts Substance Criticality Severity Reaction Reaction Severity Status codeine GI upset Active Assessment and Plan Extracted from: Title:Clinical Document Author:MD Ivis, Rita Arenas Date:08/26/24 OUTPATIENT NOTE Name: CATHY RODRIGUEZ Patient Number:1 [id number] : 1940 Date of Service: 08/26/2024 _ Cathy Rodriguez returns for reevaluation. She had Mohs surgery on the right cheek in December 2022 which is well-healed. She notes keratotic papules present on the right and left hand which were treated with cryotherapy as actinic keratoses side effects were discussed. If these persist or recur she will let us know. Review of systems medications allergies as noted on the chart. The patient has 2 cats at home. Examination reveals pleasant well-nourished white female with type I skin is alert and oriented x 3 with no mood and affect. Examination of the head, neck, back, chest, arms, hands, fingers, abdominal area, legs, feet, and toes reveals findings as noted above, seborrheic keratosis left lateral trunk which requires no further treatment the patient was reassured as to its benign nature and is otherwise unremarkable. The patient will return in 6 months for reevaluation of treatment sites. Medications amoxicillin 500 mg oral capsule Start: 01/02/22 2:15:00 PM EDT Start Date: 01/02/22 Status: Ordered busPIRone 10 mg oral tablet Start: 01/02/22 2:15:00 PM EDT, 1 tab, PO, bid Start Date: 01/02/22 Status: Ordered Efudex 5% topical cream Start: 12/18/22 2:22:00 PM EST, 1 appl, topical, bid, Disp# 40 g, Refills: 0, Apply to face for 4 weeks and then discontinue., Pharmacy: [id number] Start Date: 12/18/22 Status: Ordered famotidine 20 mg oral tablet Start: 01/02/22 2:15:00 PM EDT, 1 tab, PO, Daily Start Date: 01/02/22 Status: Ordered Lantus Solostar Pen 100 units/mL subcutaneous solution Start: 01/02/22 2:15:00 PM EDT, 28 unit =, subQ, qhs Start Date: 01/02/22 Status: Ordered LORazepam 1 mg oral tablet Start: 01/02/22 2:15:00 PM EDT, 1 tab, PO, Daily, prn Start Date: 01/02/22 Status: Ordered mirtazapine 15 mg oral tablet Start: 01/02/22 2:15:00 PM EDT, 1 tab, PO, qhs Start Date: 01/02/22 Status: Ordered pantoprazole 40 mg oral delayed release tablet Start: 01/02/22 2:15:00 PM EDT, 1 tab, PO, Daily Start Date: 01/02/22 Status: Ordered triamcinolone 0.1% topical cream Start: 01/02/22 2:18:00 PM EDT, 1 appl, topical, bid, Disp# 60 g, Refills: 2, apply to dermatitis onthe legs until clear, Pharmacy: [id number] Start Date: 01/02/22 Status: Ordered venlafaxine 150 mg oral capsule, extended release Start: 01/02/22 2:15:00 PM EDT, 1 cap, PO, Daily Start Date: 01/02/22 Status: Ordered Mental Status 08/26/24 Barriers to Learning one year None evide nt Mandatory Health Literacy Documentation Yes Health Literacy Communication Barriers N ever Primary Language Malay Problem List Condition Confirmation Course Effective Dates Status Health St atus Informant 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 Confirmed Active Diabetes Confirmed Active Knee effusion, right Confirmed Active Foot pain, right Confirmed Active History of skin cancer Confirmed Active Right knee pain Confirmed Active Posterior tibial tendinitis, right leg Confirmed Active Diagnosis Diagnosis Type Effective Dates Health Status Cl inical Service Informant AK (actinic keratosis) Discharge Diagnosis 08/26/24 Procedures Procedure Date Related Diagnosis Body Site Status Surgery 07/12/24 Completed Mohs micrographic surgery 01/02/23 Completed Shave biopsy and cauterization of skin 12/04/22 Completed Shave biopsy and cauterization of skin 01/31/22 Completed Appendix Completed Bilateral replacement of knee joints Completed Tonsils and adenoids Comp leted Social History Social History Type Response Smoking Status Never smoked cigaret mercy Sex Female Sex Representation Female (finding) Outpatient Note * MD Ivis, Cornel Arenas: PERFORM Event Display: .Outpt Note Authored Date: [id number] OUTPATIENT NOTE Name: CATHY RODRIGUEZ Patient Number:[id number] : 1940 Date of Service: 08/26/2024 _ Cathy Rodriguez returns for reevaluation. She had Mohs surgery on the right cheek in December 2022 which is well-healed. She notes keratotic papules present on the right and left hand which were treated with cryotherapy as actinic keratoses side effects were discussed. If these persist or recur she will let us know. Review of systems medications allergies as noted on the chart. The patient has 2 cats at home. Examination reveals pleasant well-nourished white female with type I skin is alert and oriented x 3with no mood and affect. Examination of the head, neck, back, chest, arms, hands, fingers, abdominal area, legs, feet, and toes reveals findings as noted above, seborrheic keratosis left lateral trunk which requires no further treatment the patient was reassured as to its benign nature and is otherwise unremarkable. The patient will return in 6 months for reevaluation of treatment sites. Electronic Signature on File Electronically Reviewed/Signed by: Cornel Langston MD Author Signature Dt/Tm:08/26/2024 01:24 PM Department of Dermatology [facility] Patient Care team information Care Team Personnel Name: MD Erwin, Ro Silva Position: Referring Member Role: Primary Care Provider Address: [address] [place] [address]
--- OUTSIDE RECORDS SUMMARY | 2024-09-17 19:13 | External Medical Summary ---
Author Name Unknown Address Unknown Organization K01:LABORATORY [facility] - [address] [facility] [address] Laboratory Report Ordering Provider Test Date Status JEANNINETRISTEN TRAVISJOHNY 09/01/2024 15:44:03 Final Observation Date Value Abnormality Reference (Units ) Status BUN 09/01/2024 15:44:03 18 6-20 (mg/dL) Final Creatinine 09/01/2024 15:44:03 0.6 0.5-1.0 (mg/dL) Final Glomerular filtration rate/1.73 sq M.predicted [Volume Rate/Area] in Serum, Plasma or Blood by Creatinine-based formula (CKD-EPI) 09/01/2024 15:44:03 88 >=60 (mL/min) Final eGFR is calculated based on the CKD-EPI 2020 equation. Sodium 09/01/2024 15:44:03 138 135-146 (m mol/L) Final Potassium 09/01/2024 15:44:03 4.5 3.5-5.1 (m mol/L) Final Cl 09/01/2024 15:44:03 105 98-107 (mm ol/L) Final CO2 09/01/2024 15:44:03 21 Below low normal 22- 32 (mmol/L) Final Anion gap 09/01/2024 15:44:03 12 7-15 (mmol /L) Final Glucose 09/01/2024 15:44:03 120 70-120 (mg /dL) Final Albumin 09/01/2024 15:44:03 4.4 3.8-5.0 (g /dL) Final AST (Aspartate aminotransferase) 09/01/2024 15:44:03 67 Above high normal 10-35 (U/L) Final Alk Phos 09/01/2024 15:44:03 131 Above high normal 35 -130 (U/L) Final Bilirubin, Total 09/01/2024 15:44:03 0.4 <=1 .2 (mg/dL) Final Calcium 09/01/2024 15:44:03 9.7 8.4-10.2 ( mg/dL) Final Protein 09/01/2024 15:44:03 6.4 6.0-8.3 (g /dL) Final ALT (Alanine aminotransferase) 09/01/2024 15:44:03 66 Above high normal 10-35 (U/L) Final Performing Location [facility]ORY [facility] - [facility] [address] [facility] [address]
--- OUTSIDE RECORDS SUMMARY | 2024-09-17 19:13 | External Medical Summary | Summary of Care ---
Author Name Unknown Organization [facility] Address [address] [place] [address] Phone [phone] Care Team Providers Care Cushion Mat Maker Name Role Phone Jarret Gardner MD Primary Care Provider + Encounter Details Date Type Department Care Team (Late st Contact Info) Description 09/01/2024 Orders Only Laboratory [facility] [address] [place] [id number] Robin Fritz MD [address] [facility] [address] [place] [address] Encounter for long-term (current) use of medications*; [...] mRNA, LNP-s, No Pre serve, 2-Dose Series (Membersuite) 07/20/2021 COVID-19, LNP-s, No Preserve , Burke-sucrose, Ages 12+ (Pfizer) 02/06/2022 COVID-19, MRNA-LNP, 24-25, P F, 50 MCG/0.5ML, IM, 12 YRS & ABOVE (Moderna - Spikevax) 07/10/2024 COVID-19, MRNA-LNP, PF, 50 M CG/0.5 mL, 12 YRS AND ABOVE, IM (MODERNA-Spikevax) 08/08/2023 Covid-19, Mrna, Lnp-s, Pf, B ivalent, 30 Mcg, IM, 12 yrs and above (Membersuite) 07/10/2022 Pneumococcal Conjugate Vacc, 13 Valent (Prevnar) [...] PM EST Office Visit General Internal Medicine [facility] [address] [facility] [address] [place] [address] Jarret Gardner MD [address] [facility] [place] [address] 05/12/2025 2:15 PM EDT Imaging Radiology [address] [facility] [place] [address] Pending Results Name Type Priority Associated Diagnoses [...] this encounter Medical Devices Implanted Type Area Fuel Cell Assembler Device Identifier Shelf Expiration Date Model / Serial / Lot Cement Bone Palacos R 1x40g - [id number] Implanted:Qty: 4 on 07/19/2020 by Ha Oviedo MD at OR [facility] [place] Right: Knee [employer] 08/20/2023 [id number] / / [id number] Jose Patella Implanted:Qty: 1 on 01/03/2021 by Ha Oviedo MD at OR [facility] [place] Right: Knee 04/19/2024 42-5228-004 -10 / / [id number] Cement Bone Palacos R 1x40g - [id number] Implanted:Qty: 5 on 01/03/2021 by Ha Oviedo MD at OR [facility] [place] Right: Knee [employer] 08/20/2024 [id number] / / [id number] Jose Femur Implanted:Qty: 1 on 01/03/2021 by Ha Oviedo MD at OR [facility] [place] Right: Knee 01/18/2030 42-5046-054 -02 / / [id number] Jose Stem Implanted:Qty: 1 on 01/03/2021 by Ha Oviedo MD at OR [facility] [place] Right: Knee 06/05/2030 42-5600-075 -14 / / [id number] Plug 20/24mm Insert - [id number] Implanted:Qty: 1 on 01/03/2021 by Ha Oviedo MD at OR [facility] [place] Right: Knee [employer] 12/19/2023 00-8011-020 - / / [id number] Jose Stem Implanted:Qty: 1 on 01/03/2021 by Ha Oviedo MD at OR [facility] [place] Right: Knee 12/18/2029 42-5570-001 -14 / / [id number] Jose Tibia Implanted:Qty: 1 on 01/03/2021 by Ha Oviedo MD at OR [facility] [place] Right: Knee 02/17/2029 42-5420-064 -02 / / [id number] Plugs W/Disp Insert 12mm/16mm - [id number] Implanted:Qty: 1 on 01/03/2021 by Ha Oviedo MD at OR [facility] [place] Right: Knee [employer] 08/20/2023 00-8011-010 -01 / / [id number] Patella Persona 29mm - [id number] Implanted:Qty: 1 on 01/03/2021 by Ha Oviedo MD at OR [facility] [place] Right: Knee [employer] 06/20/2026 42-5400-000 -29 / / [id number] documented as of this encounter Visit Diagnoses Diagnosis Encounter for long-term (current) use of medications- Primary Encounter for long-term (current) use of other medications Vitamin deficiency Unspecified vitamin deficiency Screening mammogram for breast cancer documented in this encounter Advance Directives Documents on File Type Date Recorded 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 Yes, not currently available * Full Code [...] Power of Attor randolph? No Care Teams Cushion Mat Maker Relationship Specialty Start Date End Date Jarret Gardner MD [address] [place] [address] PCP - General Internal Medicine 03/26/24 documented as of this encounter
--- OUTSIDE RECORDS SUMMARY | 2024-09-17 19:13 | External Medical Summary ---
Author Name Unknown Address Unknown Organization K01:LABORATORY [facility] [place] - [address] [place] [address] Laboratory Report Ordering Provider Test Date Status JOHNY PAEZ 09/01/2024 15:44:03 Final Observation Date Value Abnormality Reference (Units ) Status Vitamin B12 09/01/2024 15:44:03 [phone] (pg/mL) Final Performing Location LABORATORY [facility] - [address] [place] [address]
--- OUTSIDE RECORDS SUMMARY | 2024-09-17 19:13 | External Medical Summary ---
Author Name Unknown Address Unknown Organization : Laboratory Report Ordering Provider Test Date Status JOHNY PAEZ 09/01/2024 15:44:03 Final Observation Date Value Abnormality Reference (Units ) Status 1,25-Dihydroxyvitamin D [Mass/volume] in Serum or Plasma 09/01/2024 15:44:03 38 18-72 (pg/mL) Final Calcitriol [Mass/volume] in Serum or Plasma 09/01/2024 15:44:03 38 (pg/mL) Final 1,25-Dihydroxyvitamin D2 [Mass/volume] in Serum or Plasma 09/01/2024 15:44:03 <8 (pg/mL) Final Vitamin D3, 1,25(OH)2 indica mercy both endogenous
production and supplementation. Vitamin D2, 1,25(OH)2
is an indicator of exogenous sources, such as diet or
supplementation. Interpretation and therapy are based
on measurement of Vitamin D,1,25(OH)2, Total.
This test was developed and its analytical
performance characteristics have been determined
by [facility] [place], [place].
It has not been cleared or approved by the FDA. This
assay has been validated pursuant to the CLIA
regulations and is used for clinical purposes.

Test Performed at:
[facility]
[id number] [facility]
[place] [address]
Frank Hitchcock M.D., Ph.D.,Director of Laboratories Performing Location
[2024-09-17 19:24] LABS: Base Excess VBG -4.7 mEq/L; HCO3 VBG 20 mmol/L; Oxygen Saturation VBG < 60.0 %; PCO2 VBG 37 mmHg (38-50); PO2 VBG 20 mmHg; pH VBG 7.35 (7.36-7.41)
[2024-09-17 19:39] LABS: Basophils # (auto) 0.06 K/uL (0.00-0.20); Basophils % (auto) 0.6 %; Eosinophils # (auto) 0.16 K/uL (0.00-0.50); Eosinophils % (auto) 1.6 %; Hematocrit (blood only) 43.7 % (37.0-47.0); Hemoglobin 14.3 g/dl (12.0-16.0); Immature Granulocytes # (auto) 0.03 K/uL (0.01-0.20); Immature Granulocytes % (auto) 0.3 %; Lymphocytes # (auto) 3.21 K/uL (1.20-3.40); Lymphocytes % (auto) 33.1 %; Mean Corpuscular Hemoglobin 28.1 pg (25.0-34.0); Mean Corpuscular Hgb Conc 32.7 g/dL (32.0-36.0); Mean Corpuscular Volume 85.9 fL (80.0-100.0); Mean Platelet Volume 10.6 fL (9.4-12.4); Monocytes # (auto) 0.72 K/uL (0.11-0.59); Monocytes % (auto) 7.4 %; Neutrophils # (auto) 5.53 K/uL (1.40-6.50); Platelet Count 283 K/uL (130-400); RDW Coefficient of Variation 16.7 % (11.5-14.5); RDW Standard Deviation 51.8 fL (36.4-46.3); Red Blood Count 5.09 M/uL (4.20-5.40); White Blood Count 9.71 K/ul (4.8-10.8)
[2024-09-17 19:45] LABS: BUN Creatinine Ratio 21.8 (10-20); Creatinine Clr Calc Pharmacy 37.2 ml/min; Potassium 4.1 mmol/L (3.5-5.1)
[2024-09-17 19:52] LABS: Troponin I High Sensitivity 34.1 pg/ml (0-14)
[2024-09-17 20:06] LABS: INR 1.1 (0.9-1.1); Partial Thromboplastin Time 28 Seconds (21-31); Prothrombin Time 11.9 Seconds (9.0-12.0)
--- NOTE | 2024-09-17 20:27 | History & Physical Report ---
Date of Service September 17, 2024 Assessment & Plan (1) Acute CHF: Plan: ? Possibly from progression of valvular heart disease History MR Hypertension, elevated secondary to above DM2 insulin requiring, well-controlled as of recent hemoglobin A1c of 6.9 24 GERD on PPI Persistent transaminitis noted on outpatient blood work last month, possibly from passive hepatic congestion Subclinical hypothyroidism mood disorder, stable past tobacco abuse PCU Diuretic Rx Strict I/Os, daily weights, CHF education Initiate beta-fern TTE, cardiology consult Re: CHF Liver ultrasound Re: Abnormal LFTs Basal bolus insulin, ISS BG goal 1 10-1 40, carb count coverage Recheck outpatient TSH next month DVT prophylaxis. Lovenox subcu Full code Patient daughter requesting updates providers. Ms. Lopez Ericasic, contact #[phone]. Text document was generated using [employer] voice recognition software. It may contain grammatical or spelling errors. Kindly contact undersigned for clarification of any documentation item in question. History of Present Illness Chief Complaint: Worsening shortness of breath Primary Care Provider: Jarret Gardner MD History obtained from patient, family, and records. Medical history significant for mild MR (TTE 2019), DM2 insulin requiring, GERD, mood disorder, skin cancer as per records, past tobacco abuse. Last confinement 2022 for respiratory failure secondary to severe COVID-19 pneumonia. Patient completed steroid course. 1 month history of shortness of breath symptoms, worse on exertion. Symptoms preceded by respiratory tract infection possibly transmitted by daughter. Outpatient COVID-19 test was negative. Improved junky cough symptoms with outpatient Z-Gabriele Rx. SOB symptoms persisted without weight gain. Episodic chest tightness. Denies abdominal pain. Patient actually losing weight. Denies unusual leg swelling. Symptoms attributed by outpatient providers to anxiety as per daughter. 2 outpatient x-rays last month just showed hyperinflation. Abnormal LFTs on outpatient blood work attributed to Recent outpatient [facility] Pulmonology visit 2 days ago. Symptoms attributed to central hypervventilation and post-COVID ILD. Anxiolytic as needed recommended. Patient brought to ER tonight by daughter for further evaluation due to worsening symptoms. IV Lasix administered at the ER. 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 Allergies Allergy/AdvReac Type Severity Reaction Status Date / Time latex Allergy Redness of Verified 09/17/24 21:10 Skin Home Medications Medication Instructions Recorded Confirmed Type buspirone 10 mg tablet 15 mg PO QAM 02/22/23 09/17/24 History famotidine 20 mg tablet 20 mg PO BID 02/22/23 09/17/24 History insulin glargine 100 unit/mL (3 16 unit subcut HS 02/22/23 09/17/24 History mL) subcutaneous pen (Lantus Solostar U-100 Insulin) mirtazapine 15 mg tablet 15 mg PO QPM 02/22/23 09/17/24 History multivitamin 1 tab PO DAILY 02/22/23 09/17/24 History pantoprazole 40 mg tablet,delayed 40 mg PO DAILY 02/22/23 09/17/24 History release venlafaxine 150 mg 150 mg PO BID 02/22/23 09/17/24 History capsule,extended release 24 hr vitamin E (dl, acetate) 180 mg 180 mg PO HS 02/22/23 09/17/24 History (400 unit) capsule azithromycin 250 mg tablet See Rx Instructions PO .COMPLEX #6 08/13/24 08/13/24 Rx tabs albuterol sulfate 90 mcg/actuation 2 puff inhalation QID PRN SOB 09/17/24 09/17/24 History aerosol inhaler (Ventolin HFA) buspirone 10 mg tablet 15 mg PO HS 09/17/24 09/17/24 History fluticasone furoate 200 1 inh inhalation DAILY 09/17/24 09/17/24 History mcg-vilanterol 25 mcg/dose inhalation powder (Breo Ellipta) gabapentin 100 mg capsule 100 mg PO BID 09/17/24 09/17/24 History loratadine 10 mg capsule 10 mg PO DAILY 09/17/24 09/17/24 History melatonin 3 mg capsule 3 mg PO HS PRN Insomnia 09/17/24 09/17/24 History metformin 500 mg tablet,extended 1,000 mg PO BID 09/17/24 09/17/24 History release 24 hr Past Med/Surg History Problem List (Updated 09/18/24 @ 00:32 by Elias Blake MD) Acute CHF CHF exacerbation (Acute) Hyperlipemia no meds GERD (gastroesophageal reflux disease) DM type 2 (diabetes mellitus, type 2) IDDM Acute respiratory failure with hypoxia Pneumonia due to COVID-19 virus CMC arthritis Tendinitis of right rotator cuff Rotator cuff tear, left Colon cancer screening Dysphagia Encounter for pre-operative examination Medical History Degenerative disc disease Osteoporosis History of colon polyps History of sigmoidoscopy Diarrhea Osteoarthritis TMJ (temporomandibular joint disorder) Depression History of migraine Surgical History Slow to wake up after anesthesia History of arthroscopic knee surgery History of tonsillectomy and adenoidectomy History of appendectomy History of colonoscopy History of bilateral knee replacement Family History Other No family history of adverse response to anesthesia Social History Smoking Status: Former smoker Tobacco Type: Cigarettes Second Hand Exposure: No; Do You Dip or Chew Tobacco: No; Hx Alcohol Use: Yes Alcohol type: wine Hx Substance Use: No Preferred Language: [place] Island[place] Communication Ability: Effective Traffic Signal Technician Required: No Beliefs That Will Affect Care: None Current Living Situation: Alone Current Living Situation Comment: Independent living at [facility] Other Information That Helps Us Care for You: No Feels Safe at Home: Yes Safety Concerns: Feels Safe At This Time Assistive Devices: None Review of Systems Review of Systems: As per HPI, all other systems reviewed and negative Physical Exam Physical Exam: GENERAL: Slightly uncomfortable, mildly anxious, episodic tachypnea SKIN: Normal color, warm HEENT: Riley palpebral conjunctivae, no ptosis, dry buccal mucosa NECK : Supple, distended jugular veins, no tenderness CHEST : Decreased breath sounds, no tenderness HEART : Tachycardic, systolic murmur ABDOMEN: Some distention, nontender EXTREMITIES : No LE swelling/tenderness, no other conspicuous deformities noted NEUROLOGIC : Coherent, no facial asymmetry, no other gross focality Results & Data Results & Data Vital Signs (Past 12 Hours) Vital Signs Temp Pulse Resp BP Pulse Ox O2 Del Method 09/17/24 19:26 108 H 09/17/24 19:21 94 Room Air 09/17/24 19:13 94 Room Air 09/17/24 19:07 36.5 C 118 H 22 168/109 H 94 Room Air Laboratory Results Laboratory Results WBC 9.71 K/ul (4.8-10.8) 09/17/24 19:17 RBC 5.09 M/uL (4.20-5.40) 09/17/24 19:17 Hgb 14.3 g/dl (12.0-16.0) 09/17/24 19:17 Hct 43.7 % (37.0-47.0) 09/17/24 19:17 MCV 85.9 fL (80.0-100.0) 09/17/24 19:17 MCH 28.1 pg (25.0-34.0) 09/17/24 19:17 MCHC 32.7 g/dL (32.0-36.0) 09/17/24 19:17 RDW Std Deviation 51.8 fL (36.4-46.3) H 09/17/24 19:17 RDW Coeff of Joseph 16.7 % (11.5-14.5) H 09/17/24 19:17 Plt Count 283 K/uL (130-400) 09/17/24 19:17 MPV 10.6 fL (9.4-12.4) 09/17/24 19:17 Immature Gran % (Auto) 0.3 % 09/17/24 19:17 Neut % (Auto) 57.0 % 09/17/24 19:17 Lymph % (Auto) 33.1 % 09/17/24 19:17 King % (Auto) 7.4 % 09/17/24 19:17 Eos % (Auto) 1.6 % 09/17/24 19:17 Baso % (Auto) 0.6 % 09/17/24 19:17 Neut # (Auto) 5.53 K/uL (1.40-6.50) 09/17/24 19:17 Lymph # (Auto) 3.21 K/uL (1.20-3.40) 09/17/24 19:17 King # (Auto) 0.72 K/uL (0.11-0.59) H 09/17/24 19:17 Eos # (Auto) 0.16 K/uL (0.00-0.50) 09/17/24 19:17 Baso # (Auto) 0.06 K/uL (0.00-0.20) 09/17/24 19:17 Immature Gran # (Auto) 0.03 K/uL (0.01-0.20) 09/17/24 19:17 PT 11.9 Seconds (9.0-12.0) 09/17/24 19:17 INR 1.1 (0.9-1.1) 09/17/24 19:17 APTT 28 Seconds (21-31) 09/17/24 19:17 PTT Ratio 1.0 09/17/24 19:17 D-Dimer Cancelled 09/17/24 19:17 VBG pH 7.35 (7.36-7.41) L 09/17/24 19:17 VBG pCO2 37 mmHg (38-50) L 09/17/24 19:17 VBG pO2 20 mmHg 09/17/24 19:17 VBG HCO3 20 mmol/L 09/17/24 19:17 VBG O2 Saturation < 60.0 % 09/17/24 19:17 VBG Base Excess -4.7 mEq/L 09/17/24 19:17 Sodium 139 mmol/L (136-145) 09/17/24 19:17 Potassium 4.1 mmol/L (3.5-5.1) 09/17/24 19:17 Chloride 107 mmol/L (98-107) 09/17/24 19:17 Carbon Dioxide 21 mmol/L (21-32) 09/17/24 19:17 Anion Gap 11 (3-11) 09/17/24 19:17 BUN 17 mg/dl (6-23) 09/17/24 19:17 Creatinine 0.78 mg/dl (0.6-1.2) 09/17/24 19:17 Est Cr Clr Drug Dosing 37.2 ml/min 09/17/24 19:17 eGFR 73.92 09/17/24 19:17 BUN/Creatinine Ratio 21.8 (10-20) H 09/17/24 19:17 Glucose 248 mg/dl (70-99(Fasting)) H 09/17/24 19:17 Calcium 10.0 mg/dl (8.6-10.3) 09/17/24 19:17 Troponin I High Sens 34.1 pg/ml (0-14) H 09/17/24 19:17 B-Natriuretic Peptide 2492 pg/ml (0-100) H 09/17/24 19:17 Lipase 15 U/L (11-82) 09/17/24 19:17 Impressions Chest X-Ray 09/17/24 19:17 Exam(s): XR CXR 1 VIEW EXAM: XR Chest, 1 View CLINICAL HISTORY: Reason for exam: Chest pain, nonspecific. TECHNIQUE: Frontal view of the chest. COMPARISON: 02/22/2023 FINDINGS: Lungs: Interstitial opacities favored to represent pulmonary vascular congestion/interstitial edema. Pleural space: Trace pleural effusions. Heart: Cardiomegaly. IMPRESSION: 1. Interstitial opacities favored to represent pulmonary vascular congestion/interstitial edema. 2. Trace pleural effusions. Electronically signed by: Matthew Kate MD 09/17/24 20:25 PM Diagnostic Findings EKG as per my interpretation : Rate 115, sinus tachycardia, normal axis, LVH, T wave flattening lateral leads
[2024-09-17] MEDS: FUROSEMIDE 40 MG/4 ML VIAL IV ONE (20:33)
[2024-09-17] MEDS: METOPROLOL TARTRATE 1 MG/ML VIAL IV STA (20:33)
[2024-09-17 20:53] LABS: Adenovirus PCR Not Detected (NotDetected); Bordetella parapertussis PCR Not Detected (NotDetected); Bordetella pertussis PCR Not Detected (NotDetected); Chlamydia pneumoniae PCR Not Detected (NotDetected); Coronavirus 229E PCR Not Detected (NotDetected); Coronavirus CoV-2 (COVID19)PCR Not Detected (NotDetected); Coronavirus HKU1 PCR Not Detected (NotDetected); Coronavirus NL63 PCR Not Detected (NotDetected); Coronavirus OC43PCR Not Detected (NotDetected); Human Metapneumovirus PCR Not Detected (NotDetected); Influenza A PCR Not Detected (NotDetected); Influenza B PCR Not Detected (NotDetected); Mycoplasma pneumoniae PCR Not Detected (NotDetected); Parainfluenza Virus 1 PCR Not Detected (NotDetected); Parainfluenza Virus 2 PCR Not Detected (NotDetected); Parainfluenza Virus 3 PCR Not Detected (NotDetected); Parainfluenza Virus 4 PCR Not Detected (NotDetected); Respiratory Syncytial VirusPCR Not Detected (NotDetected); Rhinovirus/Enterovirus PCR Not Detected (NotDetected)
--- NOTE | 2024-09-17 20:55 | Emergency Department Note ---
History of Present Illness General Chief Complaint: Shortness of Breath/Dyspnea Stated Complaint: SOB, TROUBLE BREATHING, CHEST PAIN Time Seen by Provider: 09/17/24 19:10 Source: patient and family History of Present Illness Provider Complaint: shortness of breath and chest pain Onset (ago): week(s) (3) Consistency/Duration: + progressively worsening Relieved By: + rest Exacerbated By: + exertion Context: + recent illness Associated symptoms: no fever, no sputum production, no orthopnea, no hemoptysis, no abdominal pain or no chest congestion Home Medications Medication Instructions Recorded Confirmed Type buspirone 10 mg tablet 10 mg PO BID 02/22/23 08/13/24 History cetirizine 10 mg tablet (Zyrtec) 10 mg PO DAILY 02/22/23 08/13/24 History famotidine 20 mg tablet 20 mg PO BID 02/22/23 08/13/24 History insulin glargine 100 unit/mL (3 30 unit subcut HS 02/22/23 08/13/24 History mL) subcutaneous pen (Lantus Solostar U-100 Insulin) melatonin 5 mg tablet 5 mg PO DAILYBL 02/22/23 08/13/24 History mirtazapine 15 mg tablet 15 mg PO QPM 02/22/23 08/13/24 History multivitamin 1 tab PO DAILY 02/22/23 08/13/24 History pantoprazole 40 mg tablet,delayed 40 mg PO DAILY 02/22/23 08/13/24 History release venlafaxine 150 mg 150 mg PO BID 02/22/23 08/13/24 History capsule,extended release 24 hr vitamin E (dl, acetate) 180 mg 180 mg PO HS 02/22/23 08/13/24 History (400 unit) capsule azithromycin 250 mg tablet See Rx Instructions PO .COMPLEX #6 08/13/24 08/13/24 Rx tabs Allergies Allergy/AdvReac Type Severity Reaction Status Date / Time latex Allergy Redness of Verified 08/13/24 15:24 Skin UNKNOWN BP MED Allergy Severe PUFFY FACE Uncoded 08/13/24 15:24 Past Med/Surg History Problem List (Updated 09/17/24 @ 21:02 by Anastacio Medellin MD) CHF exacerbation (Acute) Hyperlipemia no meds GERD (gastroesophageal reflux disease) DM type 2 (diabetes mellitus, type 2) IDDM Acute respiratory failure with hypoxia Pneumonia due to COVID-19 virus CMC arthritis Tendinitis of right rotator cuff Rotator cuff tear, left Colon cancer screening Dysphagia Encounter for pre-operative examination Medical History Degenerative disc disease Osteoporosis History of colon polyps History of sigmoidoscopy Diarrhea Osteoarthritis TMJ (temporomandibular joint disorder) Depression History of migraine Surgical History Slow to wake up after anesthesia History of arthroscopic knee surgery History of tonsillectomy and adenoidectomy History of appendectomy History of colonoscopy History of bilateral knee replacement Family History Other No family history of adverse response to anesthesia Social History Smoking Status: Former smoker Second Hand Exposure: No; Do You Dip or Chew Tobacco: No; Hx Alcohol Use: Yes Alcohol type: wine Hx Substance Use: No Preferred Language: Swazi Communication Ability: Effective Carport Erector Required: No Beliefs That Will Affect Care: None Current Living Situation: Alone Current Living Situation Comment: Independent living at [facility] Feels Safe at Home: Yes Assistive Devices: None Physical Exam 2 Vital Signs: Vital Signs - 24 hr 09/17/24 19:07 09/17/24 19:13 09/17/24 19:13 Temperature 36.5 C Temperature Source Temporal Artery Sc an Pulse Rate 118 H Respiratory Rate 22 Respiratory Effort / Characteristics Non-Labored Respiratory Depth Normal Normal Respiratory Patter n Regular Regular Blood Pressure 168/109 H Blood Pressure Priyanka n 128 Pulse Oximetry 94 94 Oxygen Delivery Me thod Room Air Room Air Sepsis Recent Feve r Within 48 Hours No Sepsis New/Unexpla ined Change in Men rose Status N/A Sepsis Action Take n by Nursing No Action Required 09/17/24 19:21 09/17/24 19:26 09/17/24 20:33 Temperature Temperature Source Pulse Rate 108 H 103 H Respiratory Rate Respiratory Effort / Characteristics Respiratory Depth Respiratory Patter n Blood Pressure 126/93 Blood Pressure Priyanka n Pulse Oximetry 94 Oxygen Delivery Me thod Room Air Sepsis Recent Feve r Within 48 Hours Sepsis New/Unexpla ined Change in Men rose Status Sepsis Action Take n by Nursing Physical Exam: Physical Exam GENERAL: oriented to person, place, and time. appears well-developed and well- nourished. HENT: Exam performed. - Head: Normocephalic and atraumatic. EYES: Conjunctivae and EOM are normal. Right eye exhibits no discharge. Left eye exhibits no discharge. No scleral icterus. NECK: Normal range of motion. Neck supple. No JVD present. CV: Normal rate, regular rhythm, normal heart sounds and intact distal pulses. There is no peripheral edema. Palpable radial pulses bue. PULM/CHEST: Effort normal and breath sounds normal. No respiratory distress. No stridor. no wheezes. no rales. ABD: The abdomen is soft. There is no tenderness. NEURO: Motor and sensation grossly intact. SKIN: Skin is warm and dry. He is not diaphoretic. PSYCH: normal mood and affect. Behavior is normal. Judgment and thought content normal. Course Course 1909: The patient was evaluated in room A10. A complete history and physical exam was performed Cardiac monitoring: An order was placed for continuous cardiac monitoring. The monitor shows a rate of 110 with sinus rhythm interpreted by me 2005: Vital signs stable. Imaging shows cardiomegaly with fluid overload. Labs show an elevated troponin and proBNP. Patient having a chest pain at this time. [facility] Lasix ordered for the patient. Administered Medications Discontinued Medications Furosemide (Furosemide 40 Mg/4 Ml Vial) 40 mg IV ONE ONE Stop: 09/17/24 20:06 Last Admin: 09/17/24 20:33 Dose: 40 mg Documented By: KRIS Metoprolol Tartrate (Metoprolol Tartrate 1 Mg/Ml Vial) 2.5 mg IV NOW STA Stop: 09/17/24 20:15 Last Admin: 09/17/24 20:33 Dose: 2.5 mg Documented By: KRIS Medical Decision Making Laboratory Data Attestation: I reviewed the patient's lab results. 09/17/24 19:17 09/17/24 19:17 Lab Results 09/17/24 Range/Units 19:17 WBC 9.71 (4.8-10.8) K/ul RBC 5.09 (4.20-5.40) M/uL Hgb 14.3 (12.0-16.0) g/dl Hct 43.7 (37.0-47.0) % MCV 85.9 (80.0-100.0) fL MCH 28.1 (25.0-34.0) pg MCHC 32.7 (32.0-36.0) g/dL RDW Std Deviation 51.8 H (36.4-46.3) fL RDW Coeff of Joseph 16.7 H (11.5-14.5) % Plt Count 283 (130-400) K/uL MPV 10.6 (9.4-12.4) fL Immature Gran % (Auto) 0.3 % Neut % (Auto) 57.0 % Lymph % (Auto) 33.1 % Mellette % (Auto) 7.4 % Eos % (Auto) 1.6 % Baso % (Auto) 0.6 % Neut # (Auto) 5.53 (1.40-6.50) K/uL Lymph # (Auto) 3.21 (1.20-3.40) K/uL Mellette # (Auto) 0.72 H (0.11-0.59) K/uL Eos # (Auto) 0.16 (0.00-0.50) K/uL Baso # (Auto) 0.06 (0.00-0.20) K/uL Immature Gran # (Auto) 0.03 (0.01-0.20) K/uL PT 11.9 (9.0-12.0) Seconds INR 1.1 (0.9-1.1) APTT 28 (21-31) Seconds PTT Ratio 1.0 D-Dimer Cancelled VBG pH 7.35 L (7.36-7.41) VBG pCO2 37 L (38-50) mmHg VBG pO2 20 mmHg VBG HCO3 20 mmol/L VBG O2 Saturation < 60.0 % VBG Base Excess -4.7 mEq/L Sodium 139 (136-145) mmol/L Potassium 4.1 (3.5-5.1) mmol/L Chloride 107 (98-107) mmol/L Carbon Dioxide 21 (21-32) mmol/L Anion Gap 11 (3-11) BUN 17 (6-23) mg/dl Creatinine 0.78 (0.6-1.2) mg/dl Est Cr Clr Drug Dosing 37.2 ml/min eGFR 73.92 BUN/Creatinine Ratio 21.8 H (10-20) Glucose 248 H (70-99(Fasting)) mg/dl Calcium 10.0 (8.6-10.3) mg/dl Magnesium 2.0 (1.7-2.4) mg/dl Troponin I High Sens 34.1 H (0-14) pg/ml B-Natriuretic Peptide 2492 H (0-100) pg/ml Lipase 15 (11-82) U/L Imaging Data Attestation: I personally reviewed and interpreted this imaging study as follows: My Impression: Chest x-ray: Cardiomegaly with fluid overload Radiologist's Impression: Chest X-Ray 09/17/24 19:17 Exam(s): XR CXR 1 VIEW EXAM: XR Chest, 1 View CLINICAL HISTORY: Reason for exam: Chest pain, nonspecific. TECHNIQUE: Frontal view of the chest. COMPARISON: 02/22/2023 FINDINGS: Lungs: Interstitial opacities favored to represent pulmonary vascular congestion/interstitial edema. Pleural space: Trace pleural effusions. Heart: Cardiomegaly. IMPRESSION: 1. Interstitial opacities favored to represent pulmonary vascular congestion/interstitial edema. 2. Trace pleural effusions. Electronically signed by: Matthew Kate MD 09/17/24 20:25 PM ECG Data Attestation: I personally reviewed and interpreted this ECG as follows: Interpretation: Sinus tachycardia with a rate of 114. MI 160 QRS [address] elevation or ST depression. [facility] Narrative 1910: The patient was evaluated in room A10. A complete history and physical exam was performed Cardiac monitoring: An order was placed for continuous cardiac monitoring. The monitor shows a rate of 110 with sinus rhythm interpreted by me 2005: Vital signs stable. Imaging shows cardiomegaly with fluid overload. Labs show an elevated troponin and proBNP. Patient having a chest pain at this time. [facility] Lasix ordered for the patient. Impression & Plan CHF exacerbation Discharge Plan Visit Data Chief Complaint: Shortness of Breath/Dyspnea Stated Complaint: SOB, TROUBLE BREATHING, CHEST PAIN ED Provider: Anastacio Medellin Discharge Problem: CHF exacerbation Patient Disposition: Admitted As Inpatient Forms Stand Alone Forms: [facility] Prescriptions Prescriptions: No Action azithromycin 250 mg tablet See Rx Instructions PO .COMPLEX Qty: 6 0RF Rx Instructions: For 250 mg dose pack: take 500 mg today (day 1), then 250 mg for 4 days (days 2-5) PO multivitamin Tablet 1 tab PO DAILY venlafaxine 150 mg capsule,extended release 24hr 150 mg PO BID famotidine 20 mg tablet 20 mg PO BID pantoprazole 40 mg tablet,delayed release (DR/EC) 40 mg PO DAILY buspirone 10 mg tablet 10 mg PO BID Rx Instructions: MAY TAKE A 3RD DOSE IF NEEDED. mirtazapine 15 mg tablet 15 mg PO QPM insulin glargine [Lantus Solostar U-100 Insulin] 100 unit/mL (3 mL) insulin pen 30 unit SUBCUT HS melatonin 5 mg Tablet 5 mg PO DAILYBL cetirizine [Zyrtec] 10 mg Tablet 10 mg PO DAILY vitamin E (dl, acetate) 180 mg (400 unit) Capsule 180 mg PO HS Referrals Referrals: Jarret Gardner MD [Primary Care Provider] -
[2024-09-17 21:06] LABS: Thyroid Stimulating Hormone 5.879 uIu/ml (0.300-4.500)
[2024-09-17] MEDS ORDERED: GLUCOSE 40% GEL 15 GM TUBE PO PRN (21:15)
[2024-09-17] MEDS ORDERED: DEXTROSE 50% 50 ML SYRINGE IV PRN (21:15)
[2024-09-17] MEDS ORDERED: GLUCAGON FOR INJ 1 MG VIAL SQ PRN (21:15)
[2024-09-17] MEDS ORDERED: NITROGLYCERIN SL 0.4 MG/TAB TAB SL PRN (21:15)
[2024-09-17] MEDS ORDERED: CARBOHYDRATES FOR HYPOGLYCEMIA PO PRN (21:15)
[2024-09-17] MEDS ORDERED: GLUCOSE 10 TAB/TUBE PO PRN (21:15)
[2024-09-17] MEDS: LEVALBUTEROL 1.25 MG/3 ML NEB NEB STA (21:30)
[2024-09-17] MEDS: IPRATROPIUM BROMIDE NEB SOLN 0.02% 0.5MG/2.5ML VIAL INH STA (21:30)
[2024-09-17 21:43] LABS: T4 Free Thyroxine 1.02 ng/dl (0.61-1.60)
[2024-09-17] MEDS: OPTIRAY 320 125ml IV ONE (22:09)
[2024-09-17 22:11] LABS: Troponin I High Sensitivity 38.7 pg/ml (0-14)
[2024-09-17] MEDS: INSULIN ASPART PER UNIT CHARGE SC SCH (22:25)
[2024-09-17] MEDS ORDERED: MELATONIN 3 MG TAB PO PRN (22:37)
--- NOTE | 2024-09-17 23:14 | CT Scan Report ---
Exam(s): CTA CHEST EXAM: CT Angiography Chest With Intravenous Contrast CLINICAL HISTORY: Reason for exam: cp sob. TECHNIQUE: Axial computed tomographic angiography images of the chest with intravenous contrast. CTDI is 12.6 mGy and DLP is 372.12 mGy-cm. Automated exposure control was utilized for the study. A dose lowering technique was utilized adhering to the principles of ALARA. MIP reconstructed images were created and reviewed. COMPARISON: No relevant prior studies available. FINDINGS: Pulmonary arteries: No pulmonary embolism. Aorta: No acute findings. Normal caliber. No dissection. Lungs: Interstitial and alveolar edema. Pleural space: Small pleural effusions right greater than left. Heart: Cardiomegaly. Mitral annular calcifications. Bones/joints: No acute fracture. Soft tissues: Unremarkable. Lymph nodes: Unremarkable. IMPRESSION: 1. No pulmonary embolism. 2. Interstitial and alveolar edema. 3. Small pleural effusions right greater than left. 4. Cardiomegaly. Electronically signed by: Matthew Kate MD 09/17/24 23:13 PM
[2024-09-17] MEDS: busPIRone 15 MG TAB PO SCH (23:51)
[2024-09-17] MEDS: LANTUS PER UNIT CHARGE SQ SCH (23:53)
[2024-09-18 00:49] LABS: Albumin Level 4.4 gm/dl (3.4-5.0); Bilirubin Direct 0.1 mg/dl (0-0.2); Bilirubin,Total 0.5 mg/dl (0.2-1.0); Total Protein 6.6 gm/dl (6.0-8.3)
[2024-09-18 04:26] LABS: Basophils # (auto) 0.05 K/uL (0.00-0.20); Basophils % (auto) 0.7 %; Eosinophils # (auto) 0.19 K/uL (0.00-0.50); Eosinophils % (auto) 2.6 %; Hematocrit (blood only) 37.1 % (37.0-47.0); Hemoglobin 12.2 g/dl (12.0-16.0); Immature Granulocytes # (auto) 0.01 K/uL (0.01-0.20); Immature Granulocytes % (auto) 0.1 %; Lymphocytes # (auto) 2.12 K/uL (1.20-3.40); Lymphocytes % (auto) 28.9 %; Mean Corpuscular Hemoglobin 27.2 pg (25.0-34.0); Mean Corpuscular Hgb Conc 32.9 g/dL (32.0-36.0); Mean Corpuscular Volume 82.8 fL (80.0-100.0); Mean Platelet Volume 10.7 fL (9.4-12.4); Monocytes # (auto) 0.68 K/uL (0.11-0.59); Monocytes % (auto) 9.3 %; Neutrophils # (auto) 4.29 K/uL (1.40-6.50); Neutrophils % (auto) 58.4 %; Platelet Count 253 K/uL (130-400); RDW Coefficient of Variation 16.5 % (11.5-14.5); RDW Standard Deviation 49.1 fL (36.4-46.3); Red Blood Count 4.48 M/uL (4.20-5.40); White Blood Count 7.34 K/ul (4.8-10.8)
[2024-09-18] MEDS ORDERED: ACETAMINOPHEN 500 MG TAB PO PRN (04:35)
[2024-09-18 04:40] LABS: BUN Creatinine Ratio 22.9 (10-20); Calcium 9.6 mg/dl (8.6-10.3); Creatinine Clr Calc Pharmacy 41.4 ml/min; Potassium 3.3 mmol/L (3.5-5.1)
[2024-09-18 05:22] LABS: Bilirubin Direct 0.1 mg/dl (0-0.2); Bilirubin,Total 0.5 mg/dl (0.2-1.0); Total Protein 6.5 gm/dl (6.0-8.3)
[2024-09-18] MEDS: POTASSIUM CHLORIDE CRTAB 20 MEQ TABCR PO STA (05:32)
[2024-09-18 07:22] LABS: Troponin I High Sensitivity 36.9 pg/ml (0-14)
--- NOTE | 2024-09-18 07:31 | Ultrasound Report ---
EXAM: US liver CLINICAL HISTORY: HX: NO PREV. ELEVATED LFTs PANC: LIMITED VIS OF TAIL DUE TO OVERLYING BOWEL GAS. LIVER: 15.5 cm. WNL. GB: WALL 1.4 mm. WNL. NEGATIVE FOX''S SIGN. CBD: 3.8 mm. RT KID: NO HYDRO TECHNIQUE: A limited ultrasound of the liver and gallbladder was performed using greyscale and Doppler. Multiple images were obtained in transverse and longitudinal planes. COMPARISON: No prior studies are available for comparison. FINDINGS: Liver: Liver size: Average in size measuring 15.45 cm. The liver appears normal in size with homogeneous echotexture. No evidence of focal lesions, cysts, or masses. Hepatic vasculature appears normal. Gallbladder: The gallbladder is normal in size and shape. No gallstones, wall thickening (1.37 mm), or pericholecystic fluid were noted. No evidence of gallbladder wall edema or signs of acute cholecystitis. Biliary Tree: Common bile duct diameter: measures 3.8 mm. The Common bile duct is within normal limits in caliber and not dilated. No evidence of choledocholithiasis or biliary obstruction. The right kidney shows normal vascularity with no hydronephrosis. IMPRESSION: 1. No significant abnormality in the visualized viscera. 2. Clinical correlation is recommended. Electronically signed by Clarissa De Leon 09-18-2024 07:30 AM
[2024-09-18] MEDS: FUROSEMIDE 40 MG/4 ML VIAL IV ONE (07:32)
[2024-09-18] MEDS: FAMOTIDINE 20 MG TAB PO SCH (08:25)
[2024-09-18] MEDS: busPIRone 15 MG TAB PO SCH (08:25)
[2024-09-18] MEDS: VENLAFAXINE HCL XR 150 MG CAPXR PO SCH (08:26)
[2024-09-18] MEDS: LORATADINE 10 MG TAB PO SCH (08:26)
[2024-09-18] MEDS: FLUTICASONE/VILANTEROL 200/25MCG 14 PUFFS/INHALER INH SCH (08:26)
[2024-09-18] MEDS: MULTIVITAMIN TAB PO SCH (08:26)
[2024-09-18] MEDS: ENOXAPARIN INJ 30 MG/0.3 ML SYR SQ SCH (08:26)
[2024-09-18] MEDS: GABAPENTIN 100 MG CAP PO SCH (08:26)
[2024-09-18] MEDS: PANTOprazole 40 MG TAB PO SCH (08:26)
[2024-09-18] MEDS: METOPROLOL TARTRATE 25 MG TAB PO SCH (08:26)
--- NOTE | 2024-09-18 08:44 | Cardiology Consultation ---
Date of Consultation September 18, 2024 Assessment & Plan (1) Acute CHF: (2) Mitral regurgitation: Plan Assessment: 84 year old female presents with several weeks of dyspnea on exertion. Chest xray shows bilateral pleural effusions. Audible systolic murmur and concerns for acute HF. Cardiology requested for assessment/recommendations. Plan: 1. Acute CHF 2. Mitral regurgitation -Patient with dyspnea, worse with exertion. -Currently sating low 90's on room air. -Chest xray and CTA concerning for bilateral pleural effusions left worse than right. -Patient received 2 doses of IV Lasix. -Diuresing well. Renal function stable. -Strict I&O, Daily weights on standing scale. -Maintain serum K > 3.0 and Serum Mag> 2.0. Received PO supplementation this AM. -Echocardiogram pending -Will reassess renal function in AM. Case has been discussed with Dr. Narayan. Further recommendations regarding plan of care as per his assessment. I spent a total of 40 minutes on the date of service in preparation, delivery, documentation of the care provided to the patient excluding any time spent in the performance of separately billed services. OSCAR Arboleda [facility] Cardiology [facility] Supervising Physician Co-Signing Physician Notes I have personally performed a history and physical examination on the patient. I have reviewed the advance practitioner's documentation, and I agree with, and take responsibility for the plan of care. 84-year-old female presents emergency department with progressive shortness of breath for approximately 4 to 5 weeks. Denies weight gain however notes paroxysmal nocturnal dyspnea over the past few nights. Daughter present at bedside. States her mother unable to walk into her home yesterday for Thanksgiving. Significant dyspnea with minimal exertion reported. No edema. Reports poor appetite and early satiety. Nearly 20 pound weight weight loss over the past preceding 12 months. Denies personal history of coronary disease, congestive heart failure, or rheumatic fever as a child. Echocardiogram demonstrates mild LV systolic dysfunction with borderline severe mitral regurgitation and mild pulmonary hypertension. Impression: 1. Acute heart failure with mildly reduced LV systolic function 2. Mitral regurgitation, possibly severe Plan: Continue IV diuresis with furosemide 40 mg twice daily. Add goal-directed medical therapy as hospital course progresses and blood pressure allows. Consider addition of Entresto in a.m. 09/19/2024. Monitor fluid balance, daily, GFR, electrolytes. Maintain K > 4.0 and Mg > 2.0. Results of echocardiogram with discussed with both patient and her daughter at bedside. No obvious structural mitral valve abnormality is present on 2D echo despite severe regurgitation. Continue treatment of underlying heart failure. Plan reassessment of LV function and MR with echocardiogram after optimization of medical therapy. Secondary evaluation including iron studies, SPEP/UPEP with immunofixation ordered. Future ischemic evaluation. All questions answered satisfaction of both the patient and her daughter. Cornel Narayan DO [facility] History of Present Illness Reason for Consultation: Acute CHF [facility] Attending Physician: Maximino Ríos MD History of Present Illness HPI: Patient is a 84 year old female with PMHx significant for Mild mitral regurgitation (2019), Post covid ILD, IDDM type II, GERD, mood disorder and past tobacco use that presented to the ED with a one month history of shortness of breath/dyspnea on exertion. Daughter with recent URI, Patient now endorses URI symptoms, and a "junky cough". Weights have been stable. She was seen OP by pulmonology who felt that her symptoms were attributed to c entral hyperventilation and post -Covid ILD. Upon examination today, she is resting comfortably in bed. Denies any chest pain, pressure, palpitations. Denies any current shortness of breath, but states it was worse this morning before receiving her medications (Lasix). Patient has received a total of 2 doses of IV Lasix 40mg each, last dose this morning. EKG on admission demonstrates ST with PAC's. Rate 114bpm Chest xray 09/17/24: IMPRESSION: 1. Interstitial opacities favored to represent pulmonary vascular congestion/interstitial edema. 2. Trace pleural effusions. Chest CTA 09/17/2024: IMPRESSION: 1. No pulmonary embolism. 2. Interstitial and alveolar edema. 3. Small pleural effusions right greater than left. 4. Cardiomegaly. TSH: 5.879 High Sensitivity Troponin: 34.1/38.7/36.9 -205 fluid balance Allergies Allergy/AdvReac Type Severity Reaction Status Date / Time latex Allergy Redness of Verified 09/17/24 21:10 Skin Home Medications Medication Instructions Recorded Confirmed Type buspirone 10 mg tablet 15 mg PO QAM 02/22/23 09/17/24 History famotidine 20 mg tablet 20 mg PO BID 02/22/23 09/17/24 History insulin glargine 100 unit/mL (3 16 unit subcut HS 02/22/23 09/17/24 History mL) subcutaneous pen (Lantus Solostar U-100 Insulin) mirtazapine 15 mg tablet 15 mg PO QPM 02/22/23 09/17/24 History multivitamin 1 tab PO DAILY 02/22/23 09/17/24 History pantoprazole 40 mg tablet,delayed 40 mg PO DAILY 02/22/23 09/17/24 History release venlafaxine 150 mg 150 mg PO BID 02/22/23 09/17/24 History capsule,extended release 24 hr vitamin E (dl, acetate) 180 mg 180 mg PO HS 02/22/23 09/17/24 History (400 unit) capsule azithromycin 250 mg tablet See Rx Instructions PO .COMPLEX #6 08/13/24 08/13/24 Rx tabs albuterol sulfate 90 mcg/actuation 2 puff inhalation QID PRN SOB 09/17/24 09/17/24 History aerosol inhaler (Ventolin HFA) buspirone 10 mg tablet 15 mg PO HS 09/17/24 09/17/24 History fluticasone furoate 200 1 inh inhalation DAILY 09/17/24 09/17/24 History mcg-vilanterol 25 mcg/dose inhalation powder (Breo Ellipta) gabapentin 100 mg capsule 100 mg PO BID 09/17/24 09/17/24 History loratadine 10 mg capsule 10 mg PO DAILY 09/17/24 09/17/24 History melatonin 3 mg capsule 3 mg PO HS PRN Insomnia 09/17/24 09/17/24 History metformin 500 mg tablet,extended 1,000 mg PO BID 09/17/24 09/17/24 History release 24 hr Patient History Medical History Degenerative disc disease Osteoporosis History of colon polyps History of sigmoidoscopy Diarrhea Osteoarthritis TMJ (temporomandibular joint disorder) Depression History of migraine Surgical History Slow to wake up after anesthesia History of arthroscopic knee surgery History of tonsillectomy and adenoidectomy History of appendectomy History of colonoscopy History of bilateral knee replacement Family History Other No family history of adverse response to anesthesia Social History Smoking Status: Former smoker Tobacco Type: Cigarettes Second Hand Exposure: No; Do You Dip or Chew Tobacco: No; Hx Alcohol Use: Yes Alcohol type: wine Hx Substance Use: No Preferred Language: Spanish Communication Ability: Effective E Learning Designer Required: No Beliefs That Will Affect Care: None Current Living Situation: Alone Current Living Situation Comment: Independent living at [facility] Other Information That Helps Us Care for You: No Feels Safe at Home: Yes Safety Concerns: Feels Safe At This Time Assistive Devices: None Review of Systems Review of Systems: All systems reviewed & are unremarkable except as noted in HPI & below Physical Exam Constitutional: well developed, + ill appearing and + frail appearing; no acute distress Neck: normal visual inspection and trachea midline Respiratory: normal respiratory effort and + cough; no respiratory distress and no labored breathing Auscultation: + diminished lung sounds and + crackles Cardiovascular: Rate/Rhythm: regular rate and regular rhythm Heart Sounds: normal S1, normal S2 and + murmur (+2/6 systolic murmur) Vessels: dorsalis pedis pulses present; no JVD Extremities: no edema Skin: no rashes, warm and dry Psychiatric: A+Ox3, euthymic affect Results & Data Vital Signs (Past 12 Hours) Vital Signs Temp Pulse Pulse Resp BP BP Pulse Ox 09/18/24 07:40 09/18/24 07:24 36.4 C L 79 17 120/71 90 09/18/24 07:23 99 H 09/18/24 02:41 36.6 C 90 18 112/57 L 93 09/17/24 23:19 36.4 C L 93 H 20 124/79 93 09/17/24 22:38 91 H 09/17/24 21:30 80 18 94 09/17/24 21:30 09/17/24 21:27 88 09/17/24 21:10 36.6 C 89 20 134/83 93 09/17/24 21:00 89 134/83 09/17/24 20:58 84 22 137/91 95 O2 Del Method 09/18/24 07:40 Room Air 09/18/24 07:24 Room Air 09/18/24 07:23 09/18/24 02:41 Room Air 09/17/24 23:19 Room Air 09/17/24 22:38 09/17/24 21:30 Room Air 09/17/24 21:30 Room Air 09/17/24 21:27 09/17/24 21:10 Room Air 09/17/24 21:00 09/17/24 20:58 Room Air Laboratory Results Cardiac Enzymes 09/17/24 09/17/24 09/18/24 Range/Units 19:17 21:21 04:00 AST 63 H 57 H (13-39) U/L Troponin I High Sens 34.1 H 38.7 H 36.9 H (0-14) pg/ml B-Natriuretic Peptide 2492 H (0-100) pg/ml Coagulation 09/17/24 Range/Units 19:17 PT 11.9 (9.0-12.0) Seconds APTT 28 (21-31) Seconds B-Natriuretic Peptide 2492 H (0-100) pg/ml CBC 09/17/24 09/18/24 Range/Units 19:17 04:00 WBC 9.71 7.34 (4.8-10.8) K/ul RBC 5.09 4.48 (4.20-5.40) M/uL Hgb 14.3 12.2 (12.0-16.0) g/dl Hct 43.7 37.1 (37.0-47.0) % Plt Count 283 253 (130-400) K/uL Neut # (Auto) 5.53 4.29 (1.40-6.50) K/uL Lymph # (Auto) 3.21 2.12 (1.20-3.40) K/uL [place] # (Auto) 0.72 H 0.68 H (0.11-0.59) K/uL Eos # (Auto) 0.16 0.19 (0.00-0.50) K/uL Baso # (Auto) 0.06 0.05 (0.00-0.20) K/uL Comprehensive Metabolic Panel 09/17/24 09/17/24 09/18/24 Range/Units 19:17 21:21 04:00 Sodium 139 140 (136-145) mmol/L Potassium 4.1 3.3 L (3.5-5.1) mmol/L Chloride 107 107 (98-107) mmol/L Carbon Dioxide 21 22 (21-32) mmol/L BUN 17 16 (6-23) mg/dl Creatinine 0.78 0.70 (0.6-1.2) mg/dl Glucose 248 H 136 H (70-99(Fasting)) mg/dl Calcium 10.0 9.6 (8.6-10.3) mg/dl Direct Bilirubin 0.1 0.1 (0-0.2) mg/dl AST 63 H 57 H (13-39) U/L ALT 56 H 54 H (7-52) U/L Alkaline Phosphatase 127 H 124 H (34-104) U/L Total Protein 6.6 6.5 (6.0-8.3) gm/dl Albumin 4.4 4.0 (3.4-5.0) gm/dl Intake and Output 09/17/24 09/18/24 09/18/24 22:59 06:59 14:59 Intake Total 120 / 120 Output Total 325 / 325 Balance 120 / -205 -325 / -205 Intake: Oral 120 / 120 Output: Urine 325 / 325 Other: # Unmeasured Voids 4 Weight 46.539 kg 46.493 kg Weight Measurement Method Built in [facility] Built in [facility] Diagnostic Findings Echocardiogram 07/20/2020: Interpretation Summary The examination is limited quality but adequate for evaluation of the referral indication. The qualitative LV ejection fraction is 60-64% (normal). There is aortic valve sclerosis without stenosis. Mild mitral regurgitation is present. Normal IVC size and collapsability with sniff indicates a normal right atrial pressure of 3 mmHg.
--- NOTE | 2024-09-18 10:01 | Hospitalist Progress Note ---
Date of Service September 18, 2024 Assessment & Plan (1) Acute CHF: Plan: ? Possibly from progression of valvular heart disease History MR Hypertension, elevated secondary to above DM2 insulin requiring, well-controlled as of recent hemoglobin A1c of 6.9 Junem 24 GERD on PPI Persistent transaminitis noted on outpatient blood work last month, possibly from passive hepatic congestion Subclinical hypothyroidism mood disorder, stable past tobacco abuse PCU Diuretic Rx Strict I/Os, daily weights, CHF education Initiate beta-fern TTE, cardiology consult Re: CHF Liver ultrasound Re: Abnormal LFTs Basal bolus insulin, ISS BG goal 1 10-1 40, carb count coverage Recheck outpatient TSH next month DVT prophylaxis. Lovenox subcu Full code Patient daughter requesting updates providers. Ms. Jessica Reinoso, contact #[phone]. Text document was generated using [employer] voice recognition software. It may contain grammatical or spelling errors. Kindly contact undersigned for clarification of any documentation item in question. Admission and Anticipated Discharge Date Admission Date: September 17, 2024 Results & Data Results & Data Vital Signs (Past 12 Hours) Vital Signs Temp Pulse Pulse Resp BP Pulse Ox O2 Del Method 09/18/24 07:40 Room Air 09/18/24 07:24 36.4 C L 79 17 120/71 90 Room Air 09/18/24 07:23 99 H 09/18/24 02:41 36.6 C 90 18 112/57 L 93 Room Air 09/17/24 23:19 36.4 C L 93 H 20 124/79 93 Room Air 09/17/24 22:38 91 H
[2024-09-18 13:29] LABS: Ferritin 89.9 ng/ml (8-388)
[2024-09-18] MEDS: FUROSEMIDE 40 MG/4 ML VIAL IV SCH (18:14)
[2024-09-18] MEDS: MIRTAZAPINE TAB 15 MG TAB PO SCH (20:12)
[2024-09-19 05:09] LABS: BUN Creatinine Ratio 30.6 (10-20); Calcium 9.4 mg/dl (8.6-10.3); Creatinine Clr Calc Pharmacy 29.3 ml/min; Potassium 3.4 mmol/L (3.5-5.1)
--- NOTE | 2024-09-19 07:29 | Electrocardiogram Report ---
Test Reason : Blood Pressure : */* mmHG Vent. Rate : 114 BPM Atrial Rate : 114 BPM P-R Int : 168 ms QRS Dur : 96 ms QT Int : 354 ms P-R-T Axes : * 21 108 degrees QTcB Int : 487 ms Poor data quality, interpretation may be adversely affected Sinus tachycardia with Premature atrial complexes Minimal voltage criteria for LVH, may be normal variant ( Navdeep product ) Nonspecific ST and T wave abnormality Abnormal ECG When compared with ECG of 22-Feb-2023 13:08, Premature atrial complexes are now Present Nonspecific T wave abnormality, worse in Lateral leads Confirmed by Marcelo Prajapati ([id number]) on 09/19/2024 7:29:07 AM Referred By: REFERRED SELF Confirmed By: Marcelo Prajapati
[2024-09-19] MEDS: POTASSIUM CHLORIDE CRTAB 20 MEQ TABCR PO STA (09:26)
--- NOTE | 2024-09-19 16:35 | Hospitalist Progress Note ---
Date of Service September 19, 2024 Assessment & Plan (1) Acute CHF: Plan: (1) Acute CHF, mildly reduced LV systolic function Mitral regurgitation, possibly severe Echocardiogram reviewed Evaluated by cardiology service Currently on Lasix 12 g IV twice daily -1 L fluid balance so far Also on metoprolol 12.5 mg p.o. twice daily Continue with diuresis, monitor closely Plan to add Entresto as inpatient for close monitoring Hypertension - on the lower side now monitor DM2 insulin requiring, well-controlled as of recent hemoglobin A1c of 6.9 July 14 GERD on PPI Persistent transaminitis noted on outpatient blood work last month, possibly from passive hepatic congestion Subclinical hypothyroidism mood disorder, stable past tobacco abuse Recheck outpatient TSH next month DVT prophylaxis. Lovenox subcu Full code Patient daughter requesting updates providers. Ms. Lopez Ericasic, contact #[phone]. Admission and Anticipated Discharge Date Admission Date: September 17, 2024 Subjective Follow-up for CHF, etc. Seen resting in bed, comfortable, not in distress States she continues to feel improved Breathing is improving No cough fevers chills No chest pain, palpitations, dizziness No other new symptoms Review of Systems Review of Systems: all noted and negative except for above Physical Exam Physical Exam: General- oriented x 3, not in distress, speaks in sentences with no effort or accessory muscle use Eyes- anicteric Neck- no JVD Lungs- Mild rales bilateral bases, no wheezing Heart- normal rate, regular rhythm; Positive holosystolic murmur Abdomen- normal bowel sounds, nondistended, soft, nontender Extremities- no pretibial edema, no calf tenderness Neuro- alert, oriented x 3; no gross focal neurologic deficits Skin- warm & dry Results & Data Results & Data Vital Signs (Past 12 Hours) Vital Signs Temp Pulse Pulse Resp BP Pulse Ox O2 Del Method 09/19/24 16:00 71 09/19/24 15:43 36.3 C L 74 18 101/65 94 Room Air 09/19/24 11:43 36.4 C L 68 18 97/63 L 96 Room Air 09/19/24 09:00 Room Air 09/19/24 07:42 36.4 C L 82 18 108/63 94 Room Air 09/19/24 07:40 66 all noted and reviewed including below
[2024-09-20 05:05] LABS: BUN Creatinine Ratio 36.9 (10-20); Calcium 9.9 mg/dl (8.6-10.3); Creatinine Clr Calc Pharmacy 25.6 ml/min; Magnesium 2.1 mg/dl (1.7-2.4); Potassium 3.9 mmol/L (3.5-5.1)
--- NOTE | 2024-09-20 16:01 | Cardiology Progress Note ---
<Statement entered by Kate Rucker, DO - 09/20/24 16:11> I have reviewed the advanced practitioner's documentation and agree with the plan of care. I accept the responsibility for the associated risk. Pt seen in cardiology f/u due to newly found acute heart failure unclear chronicity echo findings concerning for possible infiltrative process as well as moderate MR; she has responded to IV diuresis and would switch to PO lasix 40mg BID would continue the metoprolol i would not start entresto as an inpatient she will need close cardiology f/u as well as establish care with [facility] and an outpatient cardiac MRI for further diagnosis; some initial blood work already sent and pending would get pt ambulating the halls tomorrow with hopefully discharge home [facility] I discussed the case and my recommendations with the hospitalist over tiger text and he agreed with my plan Date of Service September 20, 2024 Assessment & Plan (1) Acute CHF: (2) Mitral regurgitation: Plan -Blood pressure currently well-controlled -She is euvolemic on exam -Encouraged to start ambulating with assistance in the hallway to see how her symptoms have improved after IV diuresis -Recommend transitioning to oral furosemide 40 mg twice daily -Continue low-dose Toprol 12.5 mg twice daily -SPEP UPEP levels pending -She is tolerating ambulation could consider discharge as early as tomorrow depending on how she is doing physically -Reassured she will need additional cardiac workup and modifications of medications as an outpatient, will need close follow-up in the cardiology clinic -will reassess tomorrow Case discussed with Dr. Rucker. Please see attestation for additional recommendations. [facility] [place] Department of Cardiology, [facility] This chart was completed in part utilizing Speech Voice Recognition Software. Grammatical errors, random word insertions, pronoun errors, and incomplete sentences are an occasional consequence of this system due to software limitations, ambient noise, and hardware issues. Any formal questions or concerns about the content, text, or information contained within the body of this dictation should be directly addressed to the provider for clarification. Admission and Anticipated Discharge Date Admission Date: September 17, 2024 Subjective 84-year-old female seen in cardiology follow-up in regard to new onset acute diastolic CHF with MR. Symptomatically she is feeling better no longer having peripheral edema. She does still have occasional shortness of breath and feels that her breathing is "shallow" Physical Exam Constitutional: WD/WN, vitals as above well developed and well nourished; no acute distress Respiratory: normal respiratory effort, lungs clear to auscultation Cardiovascular: Rate/Rhythm: regular rate and regular rhythm Heart Sounds: no murmur Vessels: no JVD and no carotid bruit Gastrointestinal (Abdomen): normal bowel sounds, soft, nontender, no hepatosplenomegaly Skin: no rashes, warm and dry Results & Data Vital Signs (Past 12 Hours) Vital Signs Temp Pulse Pulse Resp BP Pulse Ox O2 Del Method 09/20/24 15:00 75 09/20/24 11:40 36.5 C 74 18 106/60 97 Room Air 09/20/24 09:00 Room Air 09/20/24 08:00 68 09/20/24 07:29 36.3 C L 72 18 102/67 97 Room Air 09/20/24 04:06 36.4 C L 72 17 99/70 L 96 Room Air Laboratory Results Comprehensive Metabolic Panel 09/20/24 Range/Units 04:27 Sodium 141 (136-145) mmol/L Potassium 3.9 (3.5-5.1) mmol/L Chloride 105 (98-107) mmol/L Carbon Dioxide 27 (21-32) mmol/L BUN 41 H (6-23) mg/dl Creatinine 1.11 (0.6-1.2) mg/dl Glucose 165 H (70-99(Fasting)) mg/dl Calcium 9.9 (8.6-10.3) mg/dl Intake and Output 09/20/24 09/20/24 09/20/24 06:59 14:59 22:59 Output Total 425 / 1576 Balance -425 / -206 Output: Urine 425 / 1575 Other: Weight 44.5 kg Weight Measurement Method Built in [facility] Diagnostic Findings Laboratory Results WBC 7.34 K/ul (4.8-10.8) 09/18/24 04:00 RBC 4.48 M/uL (4.20-5.40) 09/18/24 04:00 Hgb 12.2 g/dl (12.0-16.0) 09/18/24 04:00 Hct 37.1 % (37.0-47.0) 09/18/24 04:00 MCV 82.8 fL (80.0-100.0) 09/18/24 04:00 MCH 27.2 pg (25.0-34.0) 09/18/24 04:00 MCHC 32.9 g/dL (32.0-36.0) 09/18/24 04:00 RDW Std Deviation 49.1 fL (36.4-46.3) H 09/18/24 04:00 RDW Coeff of Joseph 16.5 % (11.5-14.5) H 09/18/24 04:00 Plt Count 253 K/uL (130-400) 09/18/24 04:00 MPV 10.7 fL (9.4-12.4) 09/18/24 04:00 Immature Gran % (Auto) 0.1 % 09/18/24 04:00 Neut % (Auto) 58.4 % 09/18/24 04:00 Lymph % (Auto) 28.9 % 09/18/24 04:00 [place] % (Auto) 9.3 % 09/18/24 04:00 Eos % (Auto) 2.6 % 09/18/24 04:00 Baso % (Auto) 0.7 % 09/18/24 04:00 Neut # (Auto) 4.29 K/uL (1.40-6.50) 09/18/24 04:00 Lymph # (Auto) 2.12 K/uL (1.20-3.40) 09/18/24 04:00 [place] # (Auto) 0.68 K/uL (0.11-0.59) H 09/18/24 04:00 Eos # (Auto) 0.19 K/uL (0.00-0.50) 09/18/24 04:00 Baso # (Auto) 0.05 K/uL (0.00-0.20) 09/18/24 04:00 Immature Gran # (Auto) 0.01 K/uL (0.01-0.20) 09/18/24 04:00 PT 11.9 Seconds (9.0-12.0) 09/17/24 19:17 INR 1.1 (0.9-1.1) 09/17/24 19:17 APTT 28 Seconds (21-31) 09/17/24 19:17 PTT Ratio 1.0 09/17/24 19:17 D-Dimer Cancelled 09/17/24 19:17 VBG pH 7.35 (7.36-7.41) L 09/17/24 19:17 VBG pCO2 37 mmHg (38-50) L 09/17/24 19:17 VBG pO2 20 mmHg 09/17/24 19:17 VBG HCO3 20 mmol/L 09/17/24 19:17 VBG O2 Saturation < 60.0 % 09/17/24 19:17 VBG Base Excess -4.7 mEq/L 09/17/24 19:17 Sodium 141 mmol/L (136-145) 09/20/24 04:27 Potassium 3.9 mmol/L (3.5-5.1) 09/20/24 04:27 Chloride 105 mmol/L (98-107) 09/20/24 04:27 Carbon Dioxide 27 mmol/L (21-32) 09/20/24 04:27 Anion Gap 9 (3-11) 09/20/24 04:27 BUN 41 mg/dl (6-23) H 09/20/24 04:27 Creatinine 1.11 mg/dl (0.6-1.2) 09/20/24 04:27 Est Cr Clr Drug Dosing 25.6 ml/min 09/20/24 04:27 eGFR 48.41 09/20/24 04:27 BUN/Creatinine Ratio 36.9 (10-20) H 09/20/24 04:27 Glucose 165 mg/dl (70-99(Fasting)) H 09/20/24 04:27 POC Glucose 207 mg/dl (70-99) H 09/20/24 11:45 Calcium 9.9 mg/dl (8.6-10.3) 09/20/24 04:27 Magnesium 2.1 mg/dl (1.7-2.4) 09/20/24 04:27 Iron 51 mcg/dl (35-150) 09/18/24 04:00 Unsaturated IBC 276 mcg/dl (155-355) 09/18/24 04:00 Ferritin 89.9 ng/ml (8-388) 09/18/24 04:00 Total Bilirubin 0.5 mg/dl (0.2-1.0) 09/18/24 04:00 Direct Bilirubin 0.1 mg/dl (0-0.2) 09/18/24 04:00 AST 57 U/L (13-39) H 09/18/24 04:00 ALT 54 U/L (7-52) H 09/18/24 04:00 Alkaline Phosphatase 124 U/L (34-104) H 09/18/24 04:00 Troponin I High Sens 36.9 pg/ml (0-14) H 09/18/24 04:00 B-Natriuretic Peptide 2492 pg/ml (0-100) H 09/17/24 19:17 Total Protein 6.5 gm/dl (6.0-8.3) 09/18/24 04:00 Albumin 4.0 gm/dl (3.4-5.0) 09/18/24 04:00 Lipase 15 U/L (11-82) 09/17/24 19:17 TSH 5.879 uIu/ml (0.300-4.500) H 09/17/24 19:17 Free T4 1.02 ng/dl (0.61-1.60) 09/17/24 19:17 Adenovirus (PCR) Not Detected (NotDetected) 09/17/24 19:15 B. pertussis DNA (PCR) Not Detected (NotDetected) 09/17/24 19:15 B.parapertussis DNA PCR Not Detected (NotDetected) 09/17/24 19:15 C. pneumoniae DNA (PCR) Not Detected (NotDetected) 09/17/24 19:15 Coronavirus OC43 (PCR) Not Detected (NotDetected) 09/17/24 19:15 Coronavirus HKU1 (PCR) Not Detected (NotDetected) 09/17/24 19:15 Coronavirus 229E (PCR) Not Detected (NotDetected) 09/17/24 19:15 SARS-CoV-2 (PCR) Not Detected (NotDetected) 09/17/24 19:15 Coronavirus NL63 (PCR) Not Detected (NotDetected) 09/17/24 19:15 Human Metapneumovir PCR Not Detected (NotDetected) 09/17/24 19:15 Influenza Type A (PCR) Not Detected (NotDetected) 09/17/24 19:15 Influenza Type B (PCR) Not Detected (NotDetected) 09/17/24 19:15 M. pneumoniae (PCR) Not Detected (NotDetected) 09/17/24 19:15 Parainfluenza 1 (PCR) Not Detected (NotDetected) 09/17/24 19:15 Parainfluenza 2 (PCR) Not Detected (NotDetected) 09/17/24 19:15 Parainfluenza 3 (PCR) Not Detected (NotDetected) 09/17/24 19:15 Parainfluenza 4 (PCR) Not Detected (NotDetected) 09/17/24 19:15 RSV (PCR) Not Detected (NotDetected) 09/17/24 19:15 Entero/Rhino (PCR) Not Detected (NotDetected) 09/17/24 19:15 Impressions Chest X-Ray 09/17/24 19:17 Exam(s): XR CXR 1 VIEW EXAM: XR Chest, 1 View CLINICAL HISTORY: Reason for exam: Chest pain, nonspecific. TECHNIQUE: Frontal view of the chest. COMPARISON: 02/22/2023 FINDINGS: Lungs: Interstitial opacities favored to represent pulmonary vascular congestion/interstitial edema. Pleural space: Trace pleural effusions. Heart: Cardiomegaly. IMPRESSION: 1. Interstitial opacities favored to represent pulmonary vascular congestion/interstitial edema. 2. Trace pleural effusions. Electronically signed by: Matthew Kate MD 09/17/24 20:25 PM Chest CTA 09/17/24 21:02 Exam(s): CTA CHEST EXAM: CT Angiography Chest With Intravenous Contrast CLINICAL HISTORY: Reason for exam: cp sob. TECHNIQUE: Axial computed tomographic angiography images of the chest with intravenous contrast. CTDI is 12.6 mGy and DLP is 372.12 mGy-cm. Automated exposure control was utilized for the study. A dose lowering technique was utilized adhering to the principles of ALARA. MIP reconstructed images were created and reviewed. COMPARISON: No relevant prior studies available. FINDINGS: Pulmonary arteries: No pulmonary embolism. Aorta: No acute findings. Normal caliber. No dissection. Lungs: Interstitial and alveolar edema. Pleural space: Small pleural effusions right greater than left. Heart: Cardiomegaly. Mitral annular calcifications. Bones/joints: No acute fracture. Soft tissues: Unremarkable. Lymph nodes: Unremarkable. IMPRESSION: 1. No pulmonary embolism. 2. Interstitial and alveolar edema. 3. Small pleural effusions right greater than left. 4. Cardiomegaly. Electronically signed by: Matthew Kate MD 09/17/24 23:13 PM Liver Ultrasound 09/18/24 04:34 EXAM: US liver CLINICAL HISTORY: HX: NO PREV. ELEVATED LFTs PANC: LIMITED VIS OF TAIL DUE TO OVERLYING BOWEL GAS. LIVER: 15.5 cm. WNL. GB: WALL 1.4 mm. WNL. NEGATIVE FOX''S SIGN. CBD: 3.8 mm. RT KID: NO HYDRO TECHNIQUE: A limited ultrasound of the liver and gallbladder was performed using greyscale and Doppler. Multiple images were obtained in transverse and longitudinal planes. COMPARISON: No prior studies are available for comparison. FINDINGS: Liver: Liver size: Average in size measuring 15.45 cm. The liver appears normal in size with homogeneous echotexture. No evidence of focal lesions, cysts, or masses. Hepatic vasculature appears normal. Gallbladder: The gallbladder is normal in size and shape. No gallstones, wall thickening (1.37 mm), or pericholecystic fluid were noted. No evidence of gallbladder wall edema or signs of acute cholecystitis. Biliary Tree: Common bile duct diameter: measures 3.8 mm. The Common bile duct is within normal limits in caliber and not dilated. No evidence of choledocholithiasis or biliary obstruction. The right kidney shows normal vascularity with no hydronephrosis. IMPRESSION: 1. No significant abnormality in the visualized viscera. 2. Clinical correlation is recommended. Electronically signed by Clarissa De Leon 09-18-2024 07:30 AM Medications Administered Current Inpatient Medications Acetaminophen (Acetaminophen 500 Mg Tab) 500 mg PO Q6H PRN PRN Reason: fever/pain Stop: 10/18/24 04:34 Buspirone HCl (Buspirone 15 Mg Tab) 15 mg PO HS MEAGHAN Stop: 10/17/24 22:29 Last Admin: 09/19/24 21:01 Dose: 15 mg Buspirone HCl (Buspirone 15 Mg Tab) 15 mg PO QAM MEAGHAN Stop: 10/18/24 08:59 Last Admin: 09/20/24 09:12 Dose: 15 mg Dextrose (Dextrose 50% 50 Ml Syringe) 25 - 50 ml IV UD PRN; Protocol PRN Reason: Hypoglycemia Protocol Stop: 10/17/24 21:14 Enoxaparin Sodium (Enoxaparin Inj 30 Mg/0.3 Ml Syr) 30 mg SQ QAM MEAGHAN Stop: 10/18/24 08:59 Last Admin: 09/20/24 09:12 Dose: 30 mg Famotidine (Famotidine 20 Mg Tab) 20 mg PO BID MEAGHAN Stop: 10/18/24 08:59 Last Admin: 09/20/24 09:12 Dose: 20 mg Fluticasone/Vilanterol (Fluticasone/Vilanterol 200/25mcg 14 Puffs/Inhaler) 1 puffs INH DAILY MEAGHAN Stop: 10/18/24 08:59 Last Admin: 09/20/24 09:12 Dose: 1 puffs Furosemide (Furosemide 40 Mg/4 Ml Vial) 40 mg IV BID17 MEAGHAN Stop: 10/18/24 16:59 Last Admin: 09/20/24 09:11 Dose: 40 mg Gabapentin (Gabapentin 100 Mg Cap) 100 mg PO BID MEAGHAN Stop: 10/18/24 08:59 Last Admin: 09/20/24 09:12 Dose: 100 mg Glucagon (Glucagon For Inj 1 Mg Vial) 1 mg SQ UD PRN; Protocol PRN Reason: Hypoglycemia Protocol Stop: 10/17/24 21:14 Glucose (Glucose 40% Gel 15 Gm Tube) 15 - 30 gm PO UD PRN; Protocol PRN Reason: Hypoglycemia Protocol Stop: 10/17/24 21:14 Glucose (Glucose 10 Tab/Tube) 4 - 8 tab PO UD PRN; Protocol PRN Reason: Hypoglycemia Protocol Stop: 10/17/24 21:14 Insulin Aspart (Insulin Aspart Per Unit Charge) 0 units SC ACHS MEAGHAN Stop: 10/17/24 21:14 Last Admin: 09/20/24 12:34 Dose: Not Given Insulin Glargine (Lantus Per Unit Charge) 10 units SQ HS MEAGHAN Stop: 10/17/24 22:29 Last Admin: 09/19/24 21:48 Dose: 10 units Loratadine (Loratadine 10 Mg Tab) 10 mg PO DAILY MEAGHAN Stop: 10/18/24 08:59 Last Admin: 09/20/24 09:12 Dose: 10 mg Melatonin (Melatonin 3 Mg Tab) 3 mg PO HSZ PRN PRN Reason: Insomnia Stop: 10/17/24 22:36 Metoprolol Tartrate (Metoprolol Tartrate 25 Mg Tab) 12.5 mg PO BID MEAGHAN Stop: 10/18/24 08:59 Last Admin: 09/20/24 09:11 Dose: 12.5 mg Mirtazapine (Mirtazapine Tab 15 Mg Tab) 15 mg PO QPM MEAGHAN Stop: 10/18/24 20:59 Last Admin: 09/19/24 21:02 Dose: 15 mg Miscellaneous (Carbohydrates For Hypoglycemia ) 15 - 30 gm PO UD PRN PRN Reason: Hypoglycemia Protocol Stop: 10/17/24 21:14 Multivitamins (Multivitamin Tab) 1 tab PO DAILY MEAGHAN Stop: 10/18/24 08:59 Last Admin: 09/20/24 09:12 Dose: 1 tab Nitroglycerin (Nitroglycerin Sl 0.4 Mg/Tab Tab) 0.4 mg SL Q5M PRN PRN Reason: Chest Pain Stop: 10/17/24 21:14 Pantoprazole Sodium (Pantoprazole 40 Mg Tab) 40 mg PO DAILY MEAGHAN Stop: 10/18/24 08:59 Last Admin: 09/20/24 09:12 Dose: 40 mg Venlafaxine HCl (Venlafaxine Hcl Xr 150 Mg Capxr) 150 mg PO BID MEAGHAN Stop: 10/18/24 08:59 Last Admin: 09/20/24 09:12 Dose: 150 mg
[2024-09-20] MEDS: FUROSEMIDE 40 MG TAB PO SCH (17:00)
--- NOTE | 2024-09-20 17:29 | Hospitalist Progress Note ---
Date of Service September 20, 2024 Assessment & Plan (1) Acute CHF: Plan: (1) Acute CHF, mildly reduced LV systolic function Mitral regurgitation, possibly severe Echocardiogram reviewed Evaluated by cardiology service Currently on Lasix 12 g IV twice daily -1 L fluid balance so far Also on metoprolol 12.5 mg p.o. twice daily Continue with diuresis, monitor closely Plan to add Entresto as inpatient for close monitoring 09/20 Remains on negative fluid balance Evaluated by cardiology service today Transition to p.o. Lasix 40 mg twice daily Continue metoprolol p.o. twice daily Monitor closely PT OT tomorrow Will need two-step exercise test Hypertension - on the lower side now monitor DM2 insulin requiring, well-controlled as of recent hemoglobin A1c of 6.9 July 14 GERD on PPI Persistent transaminitis noted on outpatient blood work last month, possibly from passive hepatic congestion Subclinical hypothyroidism mood disorder, stable past tobacco abuse Recheck outpatient TSH next month DVT prophylaxis. Lovenox subcu Full code plan of care discussed with patient and her daughter in detail and at length all questions answered they are understanding, agreeable, comfortable with the plan of care Admission and Anticipated Discharge Date Admission Date: September 17, 2024 Subjective Follow-up for CHF exacerbation, etc. Seen resting in bed, comfortable, not in distress States she continues to feel improved overall Breathing seems to be improving No cough, fevers or chills No chest pain, palpitations, dizziness Ambulating to the bathroom with no issues No other new symptoms Review of Systems Review of Systems: all noted and negative except for above Physical Exam Physical Exam: General- oriented x 3, not in distress, speaks in sentences with no effort or accessory muscle use Eyes- anicteric Neck- no JVD Lungs- Mild rales at the bases, no wheezing, good air entry bilaterally Heart- normal rate, regular rhythm; Positive for systolic murmur Abdomen- normal bowel sounds, nondistended, soft, nontender Extremities- no pretibial edema, no calf tenderness Neuro- alert, oriented x 3; no gross focal neurologic deficits Skin- warm & dry Results & Data Results & Data Vital Signs (Past 12 Hours) Vital Signs Temp Pulse Pulse Resp BP Pulse Ox O2 Del Method 09/20/24 16:26 36.3 C L 77 18 96/58 L 94 Room Air 09/20/24 15:00 75 12/01/24 11:40 36.5 C 74 18 106/60 97 Room Air 09/20/24 09:00 Room Air 09/20/24 08:00 68 09/20/24 07:29 36.3 C L 72 18 102/67 97 Room Air all noted and reviewed including below
[2024-09-21 05:22] LABS: BUN Creatinine Ratio 42.4 (10-20); Calcium 9.8 mg/dl (8.6-10.3); Creatinine Clr Calc Pharmacy 28.7 ml/min; Potassium 3.3 mmol/L (3.5-5.1)
[2024-09-21 07:23] VITALS: O2SAT 95
--- NOTE | 2024-09-21 07:55 | Cardiology Progress Note ---
Date of Service September 21, 2024 Assessment & Plan (1) Mitral regurgitation: (2) Acute CHF: Plan Plans: 84 yo woman presenting with 4-5 weeks of worsening dyspnea Dx: CHF - acute CHF exacerbation; HF with mildly reduced LVEF; MR; Newly recognizedcardiomyopathy * STOP Lopressor 12.5 mg po BID * Start Toprol XL 12.5 mg po per day * Patient is approaching euvolemia - confirmed on ECHO with IVC normal size * Transitioned to po Lasix - 40 mg po BID * Would opt for QD dosing of diuretics to avoid urinating all day - Lasix 40 mg po per day * Watch daily weights to ensure that Lasix dose is appropriate and effective * K+ 3.3 * Kdur 40 meq po BID on 09/21/2024 * Recheck BMP in PM * Start Aldactone 12.5 mg po per day * Will consider low-dose afterload reduction once changes above are made * Consider starting Jardiance 10 mg po per day * May need ischemic evaluation as an outpt * Considering Infiltrative CMP - SPEP/UPEP * May need additional investigation of Mitral Valve anatomy - DEN as an outpt * Mobilize * Follow up with [facility] Card[facility] * Please call with any additional questions Glen Pereyra Admission and Anticipated Discharge Date Admission Date: September 17, 2024 Subjective Events Overnight: Telemetry - Sinus with PACs, HR 70-80's Subjective: * No complaints Review of Systems Review of Systems: All systems reviewed & are unremarkable except as noted in HPI & below Physical Exam Physical Exam: Thin woman in NAD JVP at base of neck S1S2 2-3/6 Sytstolic murmur at LLSB and Motley CTA B No c/c/e Warm and well-perfused Results & Data Vital Signs (Past 12 Hours) Vital Signs Temp Pulse Pulse Resp BP Pulse Ox O2 Del Method 09/21/24 07:23 36.5 C 67 17 98/58 L 95 Room Air 09/21/24 04:00 36.4 C L 70 17 112/68 94 Room Air 09/21/24 01:18 79 09/21/24 01:18 Room Air 09/21/24 00:14 36.4 C L 74 15 107/66 96 Room Air 09/20/24 20:29 84 108/65 09/20/24 20:21 36.7 C 76 16 105/69 96 Room Air Laboratory Results Comprehensive Metabolic Panel 09/21/24 Range/Units 04:32 Sodium 139 (136-145) mmol/L Potassium 3.3 L (3.5-5.1) mmol/L Chloride 105 (98-107) mmol/L Carbon Dioxide 25 (21-32) mmol/L BUN 42 H (6-23) mg/dl Creatinine 0.99 (0.6-1.2) mg/dl Glucose 96 (70-99(Fasting)) mg/dl Calcium 9.8 (8.6-10.3) mg/dl Intake and Output 09/20/24 09/21/24 09/21/24 22:59 06:59 14:59 Intake Total 1050 / 1050 Output Total 1052 / 1252 200 / 1252 Balance - - Intake: Oral 1050 / 1050 Output: Urine 1050 / 1250 200 / 1250 # Bowel Movements 2 / 2 Other: Weight 44.6 kg Weight Measurement Method Built in [facility] Diagnostic Findings ECHOcardiogram: 09-18-2024 LVEF 40-45% Mild Global HK of LV LA - mildly dilated MAC - severe MR - may be severe - posteriorly directed TR - mild PASP 44 mmHg No noted IVC - WNL EKG - 09-17-2024 Sinus tachycardia with PACs Nonspecific ST/T wave abnormalities CXR - 09-17-2024 Trace Pleural Effusion Interstitial opacities - possible pulmonary edema CT of Chest: 09-17-2024 No PE Pulmonary edema Small pleural effusions - R >L Cardiomegaly RUQ: 09-18-2024 No cirrhosis Medications Administered Current Inpatient Medications Acetaminophen (Acetaminophen 500 Mg Tab) 500 mg PO Q6H PRN PRN Reason: fever/pain Stop: 10/18/24 04:34 Buspirone HCl (Buspirone 15 Mg Tab) 15 mg PO HS MEAGHAN Stop: 10/17/24 22:29 Last Admin: 09/20/24 20:34 Dose: 15 mg Buspirone HCl (Buspirone 15 Mg Tab) 15 mg PO QAM MEAGHAN Stop: 10/18/24 08:59 Last Admin: 09/20/24 09:12 Dose: 15 mg Dextrose (Dextrose 50% 50 Ml Syringe) 25 - 50 ml IV UD PRN; Protocol PRN Reason: Hypoglycemia Protocol Stop: 10/17/24 21:14 Enoxaparin Sodium (Enoxaparin Inj 30 Mg/0.3 Ml Syr) 30 mg SQ QAM MEAGHAN Stop: 10/18/24 08:59 Last Admin: 09/20/24 09:12 Dose: 30 mg Famotidine (Famotidine 20 Mg Tab) 20 mg PO BID MEAGHAN Stop: 10/18/24 08:59 Last Admin: 09/20/24 20:33 Dose: 20 mg Fluticasone/Vilanterol (Fluticasone/Vilanterol 200/25mcg 14 Puffs/Inhaler) 1 puffs INH DAILY MEAGHAN Stop: 10/18/24 08:59 Last Admin: 09/20/24 09:12 Dose: 1 puffs Furosemide (Furosemide 40 Mg Tab) 40 mg PO BID17 MEAGHAN Stop: 10/20/24 16:59 Last Admin: 09/20/24 17:00 Dose: 40 mg Gabapentin (Gabapentin 100 Mg Cap) 100 mg PO BID MEAGHAN Stop: 10/18/24 08:59 Last Admin: 09/20/24 20:34 Dose: 100 mg Glucagon (Glucagon For Inj 1 Mg Vial) 1 mg SQ UD PRN; Protocol PRN Reason: Hypoglycemia Protocol Stop: 10/17/24 21:14 Glucose (Glucose 40% Gel 15 Gm Tube) 15 - 30 gm PO UD PRN; Protocol PRN Reason: Hypoglycemia Protocol Stop: 10/17/24 21:14 Glucose (Glucose 10 Tab/Tube) 4 - 8 tab PO UD PRN; Protocol PRN Reason: Hypoglycemia Protocol Stop: 10/17/24 21:14 Insulin Aspart (Insulin Aspart Per Unit Charge) 0 units SC ACHS MEAGHAN Stop: 10/17/24 21:14 Last Admin: 09/20/24 21:07 Dose: 2 units Insulin Glargine (Lantus Per Unit Charge) 10 units SQ HS MEAGHAN Stop: 10/17/24 22:29 Last Admin: 09/20/24 21:07 Dose: 10 units Loratadine (Loratadine 10 Mg Tab) 10 mg PO DAILY MEAGHAN Stop: 10/18/24 08:59 Last Admin: 09/20/24 09:12 Dose: 10 mg Melatonin (Melatonin 3 Mg Tab) 3 mg PO HSZ PRN PRN Reason: Insomnia Stop: 10/17/24 22:36 Metoprolol Tartrate (Metoprolol Tartrate 25 Mg Tab) 12.5 mg PO BID MEAGHAN Stop: 10/18/24 08:59 Last Admin: 09/21/24 07:37 Dose: Not Given Mirtazapine (Mirtazapine Tab 15 Mg Tab) 15 mg PO QPM MEAGHAN Stop: 10/18/24 20:59 Last Admin: 09/20/24 20:33 Dose: 15 mg Miscellaneous (Carbohydrates For Hypoglycemia ) 15 - 30 gm PO UD PRN PRN Reason: Hypoglycemia Protocol Stop: 10/17/24 21:14 Multivitamins (Multivitamin Tab) 1 tab PO DAILY MEAGHAN Stop: 10/18/24 08:59 Last Admin: 09/20/24 09:12 Dose: 1 tab Nitroglycerin (Nitroglycerin Sl 0.4 Mg/Tab Tab) 0.4 mg SL Q5M PRN PRN Reason: Chest Pain Stop: 10/17/24 21:14 Pantoprazole Sodium (Pantoprazole 40 Mg Tab) 40 mg PO DAILY MEAGHAN Stop: 10/18/24 08:59 Last Admin: 09/20/24 09:12 Dose: 40 mg Venlafaxine HCl (Venlafaxine Hcl Xr 150 Mg Capxr) 150 mg PO BID MEAGHAN Stop: 10/18/24 08:59 Last Admin: 09/20/24 20:33 Dose: 150 mg
[2024-09-21] MEDS: SPIRONOLACTONE 12.5 MG TAB PO SCH (11:14)
[2024-09-21] MEDS: POTASSIUM CHLORIDE CRTAB 20 MEQ TABCR PO SCH (11:15)
[2024-09-21 12:37] VITALS: RESP 19; TEMP 97.5
--- NOTE | 2024-09-21 14:00 | Hospitalist Progress Note ---
Date of Service September 21, 2024 Assessment & Plan (1) Acute CHF: Plan: (1) Acute CHF, mildly reduced LV systolic function Mitral regurgitation, possibly severe Echocardiogram reviewed Evaluated by cardiology service Currently on Lasix 12 g IV twice daily -1 L fluid balance so far Also on metoprolol 12.5 mg p.o. twice daily Continue with diuresis, monitor closely Plan to add Entresto as inpatient for close monitoring 09/20 Remains on negative fluid balance Evaluated by cardiology service today Transition to p.o. Lasix 40 mg twice daily Continue metoprolol p.o. twice daily Monitor closely PT OT tomorrow Will need two-step exercise test Acute on chronic systolic (congestive) heart failure Hypertension - on the lower side now monitor DM2 insulin requiring, well-controlled as of recent hemoglobin A1c of 6.9 July 14 GERD on PPI Persistent transaminitis noted on outpatient blood work last month, possibly from passive hepatic congestion Subclinical hypothyroidism mood disorder, stable past tobacco abuse Recheck outpatient TSH next month DVT prophylaxis. Lovenox subcu Full code plan of care discussed with patient and her daughter in detail and at length all questions answered they are understanding, agreeable, comfortable with the plan of care Admission and Anticipated Discharge Date Admission Date: September 17, 2024 Results & Data Results & Data Vital Signs (Past 12 Hours) Vital Signs Temp Pulse Pulse Resp BP Pulse Ox O2 Del Method 09/21/24 12:49 80 09/21/24 11:25 36.4 C L 72 19 122/68 95 Room Air 09/21/24 07:46 Room Air 09/21/24 07:23 36.5 C 67 17 98/58 L 95 Room Air 09/21/24 04:00 36.4 C L 70 17 112/68 94 Room Air
[2024-09-21 16:09] VITALS: BP 120/71; PULSE 72
[2024-09-22] MEDS ORDERED: FUROSEMIDE 40 MG TAB PO SCH (09:00)
[2024-09-22 09:28] LABS: Albumin 4.1 g/dL (3.8-4.8); Alpha 1 Globulin 0.3 g/dL (0.2-0.3); Alpha 2 Globulin 0.8 g/dL (0.5-0.9); Beta-1-Globulin 0.4 g/dL (0.4-0.6); Beta-2-Globulin 0.3 g/dL (0.2-0.5); Gamma Globulin 0.5 g/dL (0.8-1.7); Monoclonal Protein Band 1 DNR g/dL (NONE DETECTED); Monoclonal Protein Band 2 DNR g/dL (NONE DETECTED); Monoclonal Protein Band 3 DNR g/dL (NONE DETECTED); Total Protein 6.5 g/dL (6.1-8.1)
[2024-09-23 05:43] LABS: Abnormal Protein Band 1 DNR mg/24 h (NONE DETECTED); Abnormal Protein Band 2 DNR mg/24 h (NONE DETECTED); Abnormal Protein Band 3 DNR mg/24 h (NONE DETECTED); Creatinine, 24 hr Urine 0.67 g/24 h (0.50-2.15); Protein, Urine 24 Hour 90 mg/24 h (<150); Ur Albumin % 59 %; Ur Alpha-1-globulin % 6 %; Ur Alpha-2-globulin % 18 %; Ur Beta Globulin % 10 %; Ur Gamma Globulin % 7 %; Ur Protein/Creatinine Rat mg/g 135 mg/g creat (<150); Urine Protein/Creatinine Ratio 0.135 (<0.150)
== END 2024-09-21 17:00 | disposition home or self-care (01) | DRG 291 ==
LOC: ED 19:06 → 4W 20:28

== ENCOUNTER 2025-09-16 10:30 | Inpatient (IN) ==
--- NOTE | 2025-09-16 10:52 | Emergency Department Note ---
History of Present Illness General Chief complaint: Flu Like Symptoms Stated complaint: FLU LIKE SYMPTOMS WORSENING Time Seen by Provider: 09/16/25 10:40 History of Present Illness This is an 85-year-old female who presents to the emergency department via private vehicle accompanied by [id number] with complaints of "influenza, worsening symptoms". The patient notes that today is day 4 of upper respiratory symptoms, cough, fatigue and trouble sleeping. The patient is that she was seen here in the ED yesterday and diagnosed with influenza and was recommended to be admitted. She declined, but returns today noting worsening symptoms overnight prompting arrival here today. No chest pain or dyspnea but does note a bit of reflux. Home Medications Medication Instructions Recorded Confirmed Type buspirone 10 mg tablet 15 mg PO QAM 02/22/23 09/16/25 History famotidine 20 mg tablet 20 mg PO BID 02/22/23 09/16/25 History insulin glargine 100 unit/mL (3 16 unit subcut HS 02/22/23 09/16/25 History mL) subcutaneous pen (Lantus Solostar U-100 Insulin) mirtazapine 15 mg tablet 15 mg PO HS 02/22/23 09/16/25 History pantoprazole 40 mg tablet,delayed 40 mg PO BID 02/22/23 09/16/25 History release venlafaxine 150 mg 150 mg PO BID 02/22/23 09/16/25 History capsule,extended release 24 hr vitamin E (dl, acetate) 180 mg 180 mg PO HS 02/22/23 09/16/25 History (400 unit) capsule albuterol sulfate 90 mcg/actuation 2 puff inhalation Q6H PRN SOB 09/17/24 09/16/25 History aerosol inhaler (Ventolin HFA) buspirone 10 mg tablet 10 mg PO HS 09/17/24 09/16/25 History fluticasone furoate 200 1 inh inhalation DAILY 09/17/24 09/16/25 History mcg-vilanterol 25 mcg/dose inhalation powder (Breo Ellipta) gabapentin 100 mg capsule 100 mg PO BID 09/17/24 09/16/25 History loratadine 10 mg capsule 10 mg PO DAILY 09/17/24 09/16/25 History metformin 500 mg tablet,extended 500 mg PO QPM 09/17/24 09/16/25 History release 24 hr metoprolol succinate 25 mg 12.5 mg (1/2 x 25 mg) PO DAILY 30 09/21/24 09/16/25 Rx tablet,extended release 24 hr days #15 tabs (Toprol XL) aripiprazole 2 mg tablet 2 mg PO QAM 09/15/25 09/16/25 History melatonin 5 mg tablet 5 mg PO HS 09/15/25 09/16/25 History tgacujhs-oci-groji ac 400 1 tab PO QAM 09/15/25 09/16/25 History mcg-calcium carb 500 mg-vit K1 20 mcg tablet (Women's 50 Plus Daily Formula) oseltamivir 75 mg capsule (Tamiflu) 75 mg PO Q12H 5 days #10 caps 09/15/25 09/16/25 Rx potassium chloride 20 mEq 20 meq PO HS 09/15/25 09/16/25 History tablet,extended release(part/cryst) spironolactone 25 mg tablet 25 mg PO DAILY 09/15/25 09/16/25 History torsemide 20 mg tablet 20 mg PO 5XWK 09/15/25 09/16/25 History Allergies Allergy/AdvReac Type Severity Reaction Status Date / Time BALTA Inhibitors Allergy Severe EDEMA Verified 09/15/25 18:46 FACE/LIPS/TONGUE Fmtbedj-LAX-MnL Reductase Allergy Severe FACE Verified 09/15/25 18:46 Inhibitor SWELLING latex Allergy Mild Redness of Verified 09/15/25 18:46 Skin codeine AdvReac Intermediate NAUSEA/VOMI Verified 09/15/25 18:46 TING empagliflozin AdvReac Intermediate EDEMA/MUSCLE Verified 09/15/25 18:46 [From Jardiance] PAIN Past Med/Surg History Problem List (Updated 09/16/25 @ 14:52 by Joseph Hernandez PA-C) Hypertension CHF (congestive heart failure) (Acute) Generalized weakness (Acute) Influenza A (Acute) Mitral regurgitation Acute CHF CHF exacerbation (Acute) Hyperlipemia no meds GERD (gastroesophageal reflux disease) DM type 2 (diabetes mellitus, type 2) IDDM Acute respiratory failure with hypoxia Pneumonia due to COVID-19 virus CMC arthritis Tendinitis of right rotator cuff Rotator cuff tear, left Colon cancer screening Dysphagia Encounter for pre-operative examination Medical History Degenerative disc disease Osteoporosis History of colon polyps History of sigmoidoscopy Diarrhea Osteoarthritis TMJ (temporomandibular joint disorder) Depression History of migraine Surgical History Slow to wake up after anesthesia History of arthroscopic knee surgery History of tonsillectomy and adenoidectomy History of appendectomy History of colonoscopy History of bilateral knee replacement Family History Other No family history of adverse response to anesthesia Social History Smoking Status: Never smoker Tobacco Type: Cigarettes Second Hand Exposure: No; Do You Dip or Chew Tobacco: No; Hx Alcohol Use: Yes Alcohol type: wine Hx Substance Use: No Preferred Language: Nepali Communication Ability: Effective 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 Beliefs That Will Affect Care: None Current Living Situation: Alone Current Living Situation Comment: Independent living at [facility] Feels Safe at Home: Yes Assistive Devices: Walker and Wheelchair Review of Systems A total of 10 systems reviewed and were otherwise negative Physical Exam Vital Signs Vital Signs - 24 hr 09/16/25 10:30 09/16/25 10:40 09/16/25 11:09 Temperature 37.4 C Temperature Source Oral Pulse Rate 114 H 110 H Respiratory Rate 20 32 H Blood Pressure 107/59 L Blood Pressure Mean 75 Pulse Oximetry 95 Oxygen Delivery Method Room Air Room Air Sepsis Recent Fever Within 48 Hours Yes Sepsis New/Unexplained Change in Mental Status No Sepsis Action Taken by Nursing No Action Required 09/16/25 11:21 09/16/25 12:00 09/16/25 12:21 Temperature Temperature Source Pulse Rate 103 H 105 H 105 H Respiratory Rate 25 H 30 H Blood Pressure 131/73 131/73 Blood Pressure Mean 92 92 Pulse Oximetry Oxygen Delivery Method Sepsis Recent Fever Within 48 Hours Sepsis New/Unexplained Change in Mental Status Sepsis Action Taken by Nursing 09/16/25 13:00 Temperature Temperature Source Pulse Rate 103 H Respiratory Rate 27 H Blood Pressure Blood Pressure Mean Pulse Oximetry 96 Oxygen Delivery Method Sepsis Recent Fever Within 48 Hours Sepsis New/Unexplained Change in Mental Status Sepsis Action Taken by Nursing VITAL SIGNS - Vital signs and nursing notes were reviewed. Stable and afebrile. GENERAL -85-year-old female appearing her stated age who is in no acute distress but appears tired/fatigued. Communicates well with provider and answers questions appropriately. SKIN - Without rashes. HEAD - NC/AT. EYES - PERRL with EOMI bilaterally. Sclera anicteric. EARS - No deformities of external structures noted on gross examination bilaterally. NOSE - Midline and without cyanosis. No epistaxis or purulent drainage noted. MOUTH/OROPHARYNX - Without perioral cyanosis. NECK - Neck with FROM. No nuchal rigidity. LUNGS - CTA CARDIAC - RRR EXTREMITIES - No clubbing or peripheral cyanosis.+5/5 strength noted in UE/LE bilaterally. NEUROLOGIC - Cranial nerves II through XII grossly intact. PSYCH -alert, oriented and pleasant on examination. Course Administered Medications Sodium Chloride (Nss) 500 mls @ 125 mls/hr IV .Q4H ONE Stop: 09/16/25 14:50 Last Admin: 09/16/25 11:34 Dose: 125 mls/hr Documented By: ELIANA Discontinued Medications Al Hydrox/Mg Hydrox/Simethicone (Aluminum/Magnesium Susp 30 Ml Udc) 15 ml PO NOW STA Stop: 09/16/25 11:26 Last Admin: 09/16/25 11:34 Dose: 15 ml Documented By: ELIANA Famotidine (Pepcid 20mg Iv Push) 20 mg in 5 mls @ 2.5 mls/min IV NOW STA Stop: 09/16/25 11:26 Last Admin: 09/16/25 11:34 Dose: 2.5 mls/min Documented By: ELIANA Miscellaneous (Patient's Height &/Or Weight Needed) 1 each N/A Q2H STA Stop: 09/16/25 13:41 Last Admin: 09/16/25 14:18 Dose: Not Given Documented By: ELIANA Medical Decision Making Laboratory Data 09/16/25 11:15 09/16/25 11:15 Lab Results 09/16/25 Range/Units 11:15 WBC 8.04 (4.8-10.8) K/ul RBC 4.53 (4.20-5.40) M/uL Hgb 13.2 (12.0-16.0) g/dL Hct 38.1 (37.0-47.0) % MCV 84.1 (80.0-100.0) fL MCH 29.1 (25.0-34.0) pg MCHC 34.6 (32.0-36.0) g/dL RDW Std Deviation 44.4 (36.4-46.3) fL RDW Coeff of Joseph 14.5 (11.5-14.5) % Plt Count 202 (130-400) K/uL MPV 10.7 (9.4-12.4) fL Immature Gran % (Auto) 0.4 % Neut % (Auto) 75.0 % Lymph % (Auto) 13.8 % [place] % (Auto) 10.6 % Eos % (Auto) 0.0 % Baso % (Auto) 0.2 % Neut # (Auto) 6.03 (1.40-6.50) K/uL Lymph # (Auto) 1.11 L (1.20-3.40) K/uL [place] # (Auto) 0.85 H (0.11-0.59) K/uL Eos # (Auto) 0.00 (0.00-0.50) K/uL Baso # (Auto) 0.02 (0.00-0.20) K/uL Immature Gran # (Auto) 0.03 (0.01-0.20) K/uL PT 11.8 (9.0-12.0) Seconds INR 1.1 (0.9-1.1) APTT 33 H (21-31) Seconds PTT Ratio 1.2 Sodium 132 L (136-145) mmol/L Potassium 4.1 (3.5-5.1) mmol/L Chloride 99 (98-107) mmol/L Carbon Dioxide 22 (21-32) mmol/L Anion Gap 11 (3-11) BUN 25 H (6-23) mg/dl Creatinine 0.90 (0.6-1.2) mg/dl Est Cr Clr Drug Dosing Not Reportable eGFR 61.87 BUN/Creatinine Ratio 27.8 H (10-20) Glucose 331 H* (70-99(Fasting)) mg/dl Calcium 9.9 (8.6-10.3) mg/dl Magnesium 1.8 (1.7-2.4) mg/dl Total Bilirubin 0.4 (0.2-1.0) mg/dl AST 31 (13-39) U/L ALT 23 (7-52) U/L Alkaline Phosphatase 86 (34-104) U/L Troponin I High Sens 25.6 H D (0-14) pg/ml Total Protein 7.3 (6.0-8.3) gm/dl Albumin 4.4 (3.4-5.0) gm/dl Globulin 2.9 (2.5-4.0) gm/dl Albumin/Globulin Ratio 1.5 (0.9-2) Procalcitonin 0.57 H (0-0.5) ng/ml MDM Narrative Patient was seen and evaluated as above in room A04. Review was performed of nursing notes and vital signs. I did review pertinent previous visits and patient history. After obtaining a thorough history and physical examination the above work up was performed. Patient presents to us today for evaluation of ongoing respiratory symptoms/flulike symptoms status post recent diagnosis of influenza yesterday. The patient is feeling worse. She did not sleep last night. She notes progressing cough. On my assessment she is overall hemodynamically stable. Options of care were discussed with the patient. IV access was established. Labs were drawn. I did order IV fluids at a maintenance rate, will be cautious with total fluid noting history of heart failure. Labs here reveal no leukocytosis or concerning anemia. INR is normal. Mild hyponatremia 132. BUN elevated to 25 consistent with the patient's dry state. Hyperglycemia 331. Troponin is elevated at 25.6, likely demand related in the setting of infection. Presentation not consistent without of ACS. Procalcitonin minimally elevated at 0.57. An EKG was performed and per my interpretation reveals sinus tachycardia at a rate of 112 bpm. QTc 461. QRS 108. No ST elevation on this rhythm tracing. At this time I do believe that further evaluation and management in the inpatient setting is warranted. I also reviewed the chest x-ray from yesterday. Case discussed with the hospitalist service. Please refer to further documentation regarding her stay. In the evaluation and treatment of this patient the following differential diagnoses were entertained: Pneumonia, influenza, sepsis, among others Impression & Plan Influenza A, Generalized weakness Discharge Plan Visit Data Chief Complaint: Flu Like Symptoms Stated Complaint: FLU LIKE SYMPTOMS WORSENING ED Provider: Zachary Gonzalez ED Midlevel Provider: Joseph Hernandez Discharge Problem: Influenza A, Generalized weakness Patient Disposition: Admitted As Inpatient Condition: Fair Forms Stand Alone Forms: My [facility], Important Visit Information Prescriptions Prescriptions: No Action venlafaxine 150 mg capsule,extended release 24hr 150 mg PO BID famotidine 20 mg tablet 20 mg PO BID pantoprazole 40 mg tablet,delayed release (DR/EC) 40 mg PO BID buspirone 10 mg tablet 15 mg PO QAM mirtazapine 15 mg tablet 15 mg PO HS insulin glargine [Lantus Solostar U-100 Insulin] 100 unit/mL (3 mL) insulin pen 16 unit SUBCUT HS vitamin E (dl, acetate) 180 mg (400 unit) Capsule 180 mg PO HS gabapentin 100 mg Capsule 100 mg PO BID fluticasone furoate-vilanterol [Breo Ellipta] 200-25 mcg/dose Blister With Device 1 inh INHALATION DAILY buspirone 10 mg tablet 10 mg PO HS albuterol sulfate [Ventolin HFA] 90 mcg/actuation Hfa Aerosol Inhaler 2 puff INHALATION Q6H PRN (Reason: SOB) metformin 500 mg Tablet Extended Release 24 Hr 500 mg PO QPM loratadine 10 mg Capsule 10 mg PO DAILY metoprolol succinate [Toprol XL] 25 mg tablet extended release 24 hr 12.5 mg PO DAILY 30 Days Qty: 15 1RF torsemide 20 mg tablet 20 mg PO [id number] Rx Instructions: 09/15/25--CHANGED TO 3 X WK(MON, WED, FRI) WAS TAKING 5 X WK, SKIPPING MON & FRI aripiprazole 2 mg tablet 2 mg PO QAM melatonin 5 mg Tablet 5 mg PO HS Women's 50 Plus Daily Formula 400 mcg-500 mg calcium-20 mcg Tablet 1 tab PO QAM spironolactone 25 mg tablet 25 mg PO DAILY potassium chloride 20 mEq tablet,ER particles/crystals 20 meq PO HS oseltamivir [Tamiflu] 75 mg capsule 75 mg PO Q12H 5 Days Qty: 10 0RF Referrals Referrals: Jarret Gardner MD [Primary Care Provider] -
[2025-09-16] MEDS: FAMOTIDINE 20MG IV PUSH 20 MG/5 ML SYR IV STA (11:34)
[2025-09-16] MEDS: ALUMINUM/MAGNESIUM SUSP 30 ML UDC PO STA (11:34)
[2025-09-16] MEDS: SODIUM CHLORIDE 0.9% 500 ML IV ONE (11:34)
[2025-09-16 11:40] LABS: Hematocrit (blood only) 38.1 % (37.0-47.0); Hemoglobin 13.2 g/dL (12.0-16.0); Immature Granulocytes # (auto) 0.03 K/uL (0.01-0.20); Immature Granulocytes % (auto) 0.4 %; Mean Corpuscular Hemoglobin 29.1 pg (25.0-34.0); Mean Corpuscular Volume 84.1 fL (80.0-100.0); Platelet Count 202 K/uL (130-400); RDW Standard Deviation 44.4 fL (36.4-46.3); Red Blood Count 4.53 M/uL (4.20-5.40); White Blood Count 8.04 K/ul (4.8-10.8)
--- NOTE | 2025-09-16 11:58 | Electrocardiogram Report ---
Test Reason : Blood Pressure : */* mmHG Vent. Rate : 112 BPM Atrial Rate : 112 BPM P-R Int : 144 ms QRS Dur : 108 ms QT Int : 338 ms P-R-T Axes : 54 -15 82 degrees QTcB Int : 461 ms Sinus tachycardia with frequent Premature ventricular complexes Otherwise normal ECG When compared with ECG of 15-Sep-2025 16:34, (unconfirmed) No significant change was found Confirmed by Sven Rice ([id number]) on 09/16/2025 11:57:57 AM Referred By: Confirmed By: Sven Rice
--- NOTE | 2025-09-16 12:03 | History & Physical Report ---
Date of Service September 16, 2025 Assessment & Plan (1) Generalized weakness: Plan: Increasing generalized weakness with aches and pains for the last 2 to 3 days Has not been able to move around due to dizziness and fear of falling Likely secondary to flu Will get PT and OT evaluation prior to discharge (2) Influenza A: Plan: Diagnosed with flu yesterday in the emergency room and the patient did not want to stay She has been on Tamiflu so we will finish the course Will be given symptomatic management for now Cautious amount of fluid given the history of CHF secondary to valvular heart di sease (3) CHF (congestive heart failure): Plan: History of mitral regurgitation and also CHF Has had acute exacerbation of CHF before No evidence of CHF at this time Will hold torsemide and give cautious amount of intravenous fluid for current mild dehydration and dizziness Monitor creatinine and electrolytes (4) GERD (gastroesophageal reflux disease): Plan: Will continue PPI and famotidine (5) DM type 2 (diabetes mellitus, type 2): Plan: Will hold metformin while in the hospital and continue with insulin Will put her on sliding scale insulin coverage (6) Depression: Plan: History of depression with anxiety Will continue current medications (7) Hypertension: Plan: Blood pressure remains on the lower side at 107/59 (8) Mitral regurgitation: Plan: History of mitral regurgitation No acute CHF now DVT prophylaxis Subcu heparin CODE STATUS DNR/DNIdiscussed with the patient History of Present Illness Chief Complaint: Increasing weakness with dizziness and cough for the last 3 days Primary Care Provider: Jarret Gardner MD She is an 85-year-old female with significant past medical history of hypertension, type 2 diabetes on insulin, mood disorder, valvular heart disease with history of CHF, GERD on PPI and subclinical hypothyroidism apparently has been complaining of increasing cough with dizziness and increasing weakness that she could hardly walk around for the last 2 to 3 days. She was in the emergency room yesterday with flu and she did not want to stay. Her condition got worse with increasing cough and increasing weakness that she can hardly move around without dizziness and fear of falling. His labs were unremarkable but given the progressing symptoms she was admitted to medical telemetry unit for continuation of care. She will be given cautious amount of intravenous fluid and symptomatic management of her cough. She has been on Tamiflu and will finish the course. Allergies Allergy/AdvReac Type Severity Reaction Status Date / Time BALTA Inhibitors Allergy Severe EDEMA Verified 09/15/25 18:46 FACE/LIPS/TONGUE Pptyfnk-THC-UbG Reductase Allergy Severe FACE Verified 09/15/25 18:46 Inhibitor SWELLING latex Allergy Mild Redness of Verified 09/15/25 18:46 Skin codeine AdvReac Intermediate NAUSEA/VOMI Verified 09/15/25 18:46 TING empagliflozin AdvReac Intermediate EDEMA/MUSCLE Verified 09/15/25 18:46 [From Jardiance] PAIN Home Medications Medication Instructions Recorded Confirmed Type buspirone 10 mg tablet 15 mg PO QAM 02/22/23 09/16/25 History famotidine 20 mg tablet 20 mg PO BID 02/22/23 09/16/25 History insulin glargine 100 unit/mL (3 16 unit subcut HS 02/22/23 09/16/25 History mL) subcutaneous pen (Lantus Solostar U-100 Insulin) mirtazapine 15 mg tablet 15 mg PO HS 02/22/23 09/16/25 History pantoprazole 40 mg tablet,delayed 40 mg PO BID 02/22/23 09/16/25 History release venlafaxine 150 mg 150 mg PO BID 02/22/23 09/16/25 History capsule,extended release 24 hr vitamin E (dl, acetate) 180 mg 180 mg PO HS 02/22/23 09/16/25 History (400 unit) capsule albuterol sulfate 90 mcg/actuation 2 puff inhalation Q6H PRN SOB 09/17/24 09/16/25 History aerosol inhaler (Ventolin HFA) buspirone 10 mg tablet 10 mg PO HS 09/17/24 09/16/25 History fluticasone furoate 200 1 inh inhalation DAILY 09/17/24 09/16/25 History mcg-vilanterol 25 mcg/dose inhalation powder (Breo Ellipta) gabapentin 100 mg capsule 100 mg PO BID 09/17/24 09/16/25 History loratadine 10 mg capsule 10 mg PO DAILY 09/17/24 09/16/25 History metformin 500 mg tablet,extended 500 mg PO QPM 09/17/24 09/16/25 History release 24 hr metoprolol succinate 25 mg 12.5 mg (1/2 x 25 mg) PO DAILY 30 09/21/24 09/16/25 Rx tablet,extended release 24 hr days #15 tabs (Toprol XL) aripiprazole 2 mg tablet 2 mg PO QAM 09/15/25 09/16/25 History melatonin 5 mg tablet 5 mg PO HS 09/15/25 09/16/25 History efszhqik-jgb-pcekq ac 400 1 tab PO QAM 09/15/25 09/16/25 History mcg-calcium carb 500 mg-vit K1 20 mcg tablet (Women's 50 Plus Daily Formula) oseltamivir 75 mg capsule (Tamiflu) 75 mg PO Q12H 5 days #10 caps 09/15/25 09/16/25 Rx potassium chloride 20 mEq 20 meq PO HS 09/15/25 09/16/25 History tablet,extended release(part/cryst) spironolactone 25 mg tablet 25 mg PO DAILY 09/15/25 09/16/25 History torsemide 20 mg tablet 20 mg PO [id number] 09/15/25 09/16/25 History Past Med/Surg History Problem List (Updated 09/16/25 @ 12:11 by Jessica Mcneil MD) Hypertension CHF (congestive heart failure) (Acute) Generalized weakness (Acute) Influenza A (Acute) Mitral regurgitation Acute CHF CHF exacerbation (Acute) Hyperlipemia no meds GERD (gastroesophageal reflux disease) DM type 2 (diabetes mellitus, type 2) IDDM Acute respiratory failure with hypoxia Pneumonia due to COVID-19 virus CMC arthritis Tendinitis of right rotator cuff Rotator cuff tear, left Colon cancer screening Dysphagia Encounter for pre-operative examination Medical History Degenerative disc disease Osteoporosis History of colon polyps History of sigmoidoscopy Diarrhea Osteoarthritis TMJ (temporomandibular joint disorder) Depression History of migraine Surgical History Slow to wake up after anesthesia History of arthroscopic knee surgery History of tonsillectomy and adenoidectomy History of appendectomy History of colonoscopy History of bilateral knee replacement Family History Other No family history of adverse response to anesthesia Social History Smoking Status: Never smoker Tobacco Type: Cigarettes Second Hand Exposure: No; Do You Dip or Chew Tobacco: No; Hx Alcohol Use: Yes Alcohol type: wine Hx Substance Use: No Preferred Language: Romanian Communication Ability: Effective 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 Beliefs That Will Affect Care: None Current Living Situation: Alone Current Living Situation Comment: Independent living at [facility] Feels Safe at Home: Yes Assistive Devices: Walker and Wheelchair Review of Systems Review of Systems: All systems reviewed and are unremarkable except as noted below Physical Exam Physical Exam: Lying in bed without any acute distress or shortness of breath Constitutional: + ill appearing and average body habitus Eyes: PERRL, conjunctivae normal, anicteric sclerae ENMT: external ear and nose normal, oropharynx normal Neck: trachea midline, no thyromegaly Respiratory: no respiratory distress Auscultation: + diminished lung sounds (At the bases with minimal crackles) Cardiovascular: Rate/Rhythm: regular rate, regular rhythm and + tachycardic Heart Sounds: normal S1, normal S2 and + murmur (Over precordium 2/6) Extremities: no edema Gastrointestinal (Abdomen): Inspection/Auscultation: normal bowel sounds; abdomen not distended Percussion/Palpation: abdomen soft; abdomen nontender Musculoskeletal: No acute arthritis involving any of the joint Neurologic: normal touch/pain/proprioception and moves all extremities; no focal motor deficits Psychiatric: A+Ox3, euthymic affect Lymphatic: no cervical or axillary lymphadenopathy Results & Data Results & Data Vital Signs (Past 12 Hours) Vital Signs Temp Pulse Resp BP Pulse Ox O2 Del Method 09/16/25 10:40 37.4 C 114 H 20 107/59 L 95 Room Air 09/16/25 10:30 Room Air Medications Administered Current Inpatient Medications Heparin Sodium (Porcine) (Heparin Sod 5,000 Unit/0.5 Ml Vial) 5,000 units SQ Q12 MEAGHAN Stop: 10/16/25 20:59 Sodium Chloride (Nss) 500 mls @ 125 mls/hr IV .Q4H ONE Stop: 09/16/25 14:50 Last Admin: 09/16/25 11:34 Dose: 125 mls/hr Code Status & VTE Plan VTE Prophylaxis Plan VTE Prophylaxis will be ordered: Yes (3) CHF (congestive heart failure) Heart failure chronicity: chronic Heart failure type: unspecified Qualified Code(s): I50.9 - Heart failure, unspecified
[2025-09-16 12:15] LABS: Alanine Aminotransferase 23 U/L (7-52); Albumin Globulin Ratio 1.5 (0.9-2); Albumin Level 4.4 gm/dl (3.4-5.0); Alkaline Phosphatase 86 U/L (34-104); Anion Gap 11 (3-11); Bilirubin,Total 0.4 mg/dl (0.2-1.0); Blood Urea Nitrogen 25 mg/dl (6-23); Calcium 9.9 mg/dl (8.6-10.3); Carbon Dioxide 22 mmol/L (21-32); Chloride 99 mmol/L (98-107); Globulin 2.9 gm/dl (2.5-4.0); Glucose 331 mg/dl (70-99(Fasting)); Magnesium 1.8 mg/dl (1.7-2.4); Potassium 4.1 mmol/L (3.5-5.1); Sodium 132 mmol/L (136-145); Total Protein 7.3 gm/dl (6.0-8.3)
[2025-09-16] MEDS ORDERED: GLUCOSE 10 TAB/TUBE PO PRN (12:21)
[2025-09-16] MEDS ORDERED: GLUCOSE 40% GEL 15 GM TUBE PO PRN (12:21)
[2025-09-16] MEDS ORDERED: GLUCAGON FOR INJ 1 MG VIAL SQ PRN (12:21)
[2025-09-16] MEDS ORDERED: CARBOHYDRATES FOR HYPOGLYCEMIA PO PRN (12:21)
[2025-09-16] MEDS ORDERED: DEXTROSE 50% 50 ML SYRINGE IV PRN (12:21)
[2025-09-16 12:38] LABS: INR 1.1 (0.9-1.1); Partial Thromboplastin Time 33 Seconds (21-31); Prothrombin Time 11.8 Seconds (9.0-12.0)
[2025-09-16] MEDS: Patient's HEIGHT &/or WEIGHT Needed STA (14:18)
--- NOTE | 2025-09-16 15:31 | Emergency Department Note ---
ED Visit Note I was consulted by the Advanced Practice Provider, Joseph Mitchell. I performed a substantive portion of the visit. This includes aspects of: History: This is an 85-year-old female with complex past medical history presenting for ongoing flulike symptoms in the setting of influenza A infection. She was seen overnight and ultimately wanted to be discharged home. Her symptoms have worsened leading to presentation. MDM: I have reviewed imaging and labs from overnight. Patient's labs were repeated today. She is tachycardic but otherwise hemodynamically stable. EKG was independently interpreted by me as sinus tachycardia. No significant ST segment changes suggest STEMI. Minimal troponin leak in the setting of her current URI illness. Patient's kidney function is stable. Does have significant hyperglycemia without anion gap acidosis. Patient to be admitted for further care given worsening status in the setting of influenza A infection. Zachary Gonzalez DO Emergency Medicine .
[2025-09-16] MEDS: OSELTAMIVIR PHOSPHATE 30 MG CAP PO SCH (15:55)
[2025-09-16] MEDS: SODIUM CHLORIDE 0.9% 1,000 ML IV SCH (16:19)
[2025-09-16] MEDS: INSULIN ASPART PER UNIT CHARGE SC SCH (18:32)
[2025-09-16 20:30] LABS: Appearance Urine Clear (Clear); Bacteria Urine Automated None Seen (None Seen); Cast Urine Automated 0-2 /lpf (0-2); Epithelial Cell Urine Auto 0-2 /hpf (0-2); Glucose Urine UA 1+ (Negative); RBC Urine Automated 0-2 /hpf (0-2); WBC Urine Automated 0-5 /hpf (0-5)
[2025-09-16] MEDS: TOCOPHERYL, DL-ALPHA 400 UNITS 180 MG CAP PO SCH (21:33)
[2025-09-16] MEDS: busPIRone 5 MG TAB PO SCH (21:33)
[2025-09-16] MEDS: LANTUS PER UNIT CHARGE SC SCH (21:34)
[2025-09-16] MEDS: MELATONIN 3 MG TAB PO SCH (21:34)
[2025-09-16] MEDS: GABAPENTIN 100 MG CAP PO SCH (21:34)
[2025-09-16] MEDS: FAMOTIDINE 20 MG TAB PO SCH (21:34)
[2025-09-16] MEDS: HEPARIN SOD 5,000 UNIT/0.5 ML VIAL SQ SCH (21:34)
[2025-09-16] MEDS: MIRTAZAPINE TAB 15 MG TAB PO SCH (21:34)
[2025-09-16] MEDS: VENLAFAXINE HCL XR 150 MG CAPXR PO SCH (21:35)
[2025-09-16] MEDS: POTASSIUM CHLORIDE CRTAB 20 MEQ TABCR PO SCH (21:35)
[2025-09-17] MEDS: ALBUTEROL HFA 8 GM INHALER INH PRN (06:23)
[2025-09-17 06:57] LABS: Hematocrit (blood only) 39.6 % (37.0-47.0); Hemoglobin 13.5 g/dL (12.0-16.0); Immature Granulocytes # (auto) 0.02 K/uL (0.01-0.20); Immature Granulocytes % (auto) 0.3 %; Mean Corpuscular Hemoglobin 29.7 pg (25.0-34.0); Mean Corpuscular Volume 87.2 fL (80.0-100.0); Platelet Count 187 K/uL (130-400); RDW Standard Deviation 46.3 fL (36.4-46.3); Red Blood Count 4.54 M/uL (4.20-5.40); White Blood Count 6.40 K/ul (4.8-10.8)
[2025-09-17 07:12] LABS: Anion Gap 11.0 (3-11); Blood Urea Nitrogen 18.0 mg/dl (6-23); Calcium 9.2 mg/dl (8.6-10.3); Carbon Dioxide 20.0 mmol/L (21-32); Chloride 106.0 mmol/L (98-107); Creatinine Clr Calc Pharmacy 40.7 ml/min; Glucose 128.0 mg/dl (70-99(Fasting)); Magnesium 1.8 mg/dl (1.7-2.4); Potassium 4.3 mmol/L (3.5-5.1); Sodium 137.0 mmol/L (136-145)
[2025-09-17] MEDS ORDERED: SPIRONOLACTONE 25 MG TAB PO SCH (09:00)
[2025-09-17] MEDS: CEROVITE ADV FORMULA TAB PO SCH (09:23)
[2025-09-17] MEDS: busPIRone 15 MG TAB PO SCH (09:23)
[2025-09-17] MEDS: METOPROLOL SUCC 25MG EXT REL TAB PO SCH (09:23)
[2025-09-17] MEDS: FLUTICASONE/VILANTEROL 200/25MCG 14 PUFFS/INHALER INH SCH (09:24)
[2025-09-17] MEDS: LORATADINE 10 MG TAB PO SCH (09:24)
--- NOTE | 2025-09-17 10:53 | Hospitalist Progress Note ---
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 09/17 no pneumonia on CXR, add nebs, mucinex continue IS, FV continue Tamiflu supportive care (3) CHF (congestive heart failure): Plan: History of mitral regurgitation and also CHF Has had acute exacerbation of CHF before No evidence of CHF at this time Will hold torsemide and give cautious amount of intravenous fluid for current mild dehydration and dizziness Monitor creatinine and electrolytes 09/17 still on the dry side Continue gentle IV fluids (4) GERD (gastroesophageal reflux disease): Plan: Will continue PPI and famotidine (5) DM type 2 (diabetes mellitus, type 2): Plan: Will hold metformin while in the hospital and continue with insulin Will put her on sliding scale insulin coverage (6) Depression: Plan: History of depression with anxiety Will continue current medications (7) Hypertension: Plan: Blood pressure remains on the lower side at 107/59 (8) Mitral regurgitation: Plan: History of mitral regurgitation No acute CHF now DVT prophylaxis Subcu heparin CODE STATUS DNR/DNIdiscussed with the patient Admission and Anticipated Discharge Date Admission Date: September 16, 2025 Subjective seen resting in bed, comfortable appears somewhat weak still having productive cough no shortness of breath still having some myalgias no chills no chest pain appetite is fair Review of Systems Review of Systems: all noted and negative except for above Physical Exam Physical Exam: General- oriented x 3, not in distress, speaks in sentences with no effort or accessory muscle use Eyes- anicteric Neck- no JVD positive dry oral mucosa Lungs-(+) wheezing and rhonchi bilaterally Heart- normal rate, regular rhythm; no murmurs Abdomen- normal bowel sounds, nondistended, soft, nontender Extremities- no pretibial edema, no calf tenderness Neuro- alert, oriented x 3; no gross focal neurologic deficits Skin- warm & dry Results & Data Results & Data Vital Signs (Past 12 Hours) Vital Signs Temp Pulse Pulse Resp BP Pulse Ox O2 Del Method 09/17/25 07:43 36.7 C 113 H 16 136/70 93 Room Air 09/17/25 07:42 114 H 09/17/25 04:09 37 C 62 16 121/74 93 Room Air 09/17/25 00:05 36.6 C 94 H 16 123/64 95 Room Air all noted and reviewed including below (3) CHF (congestive heart failure) Heart failure chronicity: chronic Heart failure type: unspecified Qualified Code(s): I50.9 - Heart failure, unspecified
[2025-09-17] MEDS: guaiFENesin 600 MG TABCR PO SCH (12:18)
[2025-09-17] MEDS: ACETAMINOPHEN 325 MG TAB PO ONE (12:18)
[2025-09-17] MEDS: LEVALBUTEROL 1.25 MG/3 ML NEB NEB SCH (13:24)
[2025-09-17] MEDS: SODIUM CHLOR 7% 4 ML NEB NEB SCH (19:19)
[2025-09-18] MEDS: predniSONE 20 MG TAB PO SCH (12:01)
[2025-09-18] MEDS: ACETAMINOPHEN 325 MG TAB PO PRN (12:15)
--- NOTE | 2025-09-18 14:10 | Hospitalist Progress Note ---
Date of Service September 18, 2025 Assessment & Plan (1) Generalized weakness: Plan: Increasing generalized weakness with aches and pains for the last 2 to 3 days Has not been able to move around due to dizziness and fear of falling Likely secondary to flu Will get PT and OT evaluation prior to discharge (2) Influenza A: Plan: Diagnosed with flu yesterday in the emergency room and the patient did not want to stay She has been on Tamiflu so we will finish the course Will be given symptomatic management for now Cautious amount of fluid given the history of CHF secondary to valvular heart di sease 09/17 no pneumonia on CXR, add nebs, mucinex continue IS, FV continue Tamiflu supportive care 09/18 (+) wheezing add Prednisone add Tylenol BID continue present management (3) CHF (congestive heart failure): Plan: History of mitral regurgitation and also CHF Has had acute exacerbation of CHF before No evidence of CHF at this time Will hold torsemide and give cautious amount of intravenous fluid for current mild dehydration and dizziness Monitor creatinine and electrolytes 09/18 hold diuretics euvolemic (4) GERD (gastroesophageal reflux disease): Plan: Will continue PPI and famotidine (5) DM type 2 (diabetes mellitus, type 2): Plan: Will hold metformin while in the hospital and continue with insulin Will put her on sliding scale insulin coverage (6) Depression: Plan: History of depression with anxiety Will continue current medications (7) Hypertension: Plan: Blood pressure remains on the lower side at 107/59 (8) Mitral regurgitation: Plan: History of mitral regurgitation No acute CHF now DVT prophylaxis Subcu heparin CODE STATUS DNR/DNIdiscussed with the patient Admission and Anticipated Discharge Date Admission Date: September 16, 2025 Subjective seen resting in bed, comfortable states she feels a little better today still having productive cough, getting loose no shortness of breath appetite improving Review of Systems Review of Systems: all noted and negative except for above Physical Exam Physical Exam: General- oriented x 3, not in distress, speaks in sentences with no effort or accessory muscle use Eyes- anicteric Neck- no JVD Lungs- (+) wheezing BL no crackles Heart- normal rate, regular rhythm; no murmurs Abdomen- normal bowel sounds, nondistended, soft, no tenderness Extremities- no pretibial edema, no calf tenderness Neuro- alert, oriented x 3; no gross focal neurologic deficits Skin- warm & dry Results & Data Results & Data Vital Signs (Past 12 Hours) Vital Signs Temp Pulse Pulse Resp BP BP Pulse Ox 09/18/25 13:20 76 18 98 09/18/25 11:26 36.7 C 86 20 130/79 96 09/18/25 11:25 09/18/25 07:45 36.3 C L 95 H 18 131/72 93 09/18/25 07:32 70 18 96 09/18/25 07:10 73 09/18/25 04:07 36.8 C 80 18 94/57 L 97 O2 Del Method 09/18/25 13:20 Room Air 09/18/25 11:26 Room Air 09/18/25 11:25 Room Air 09/18/25 07:45 Room Air 09/18/25 07:32 Room Air 09/18/25 07:10 09/18/25 04:07 Room Air all noted and reviewed including below (3) CHF (congestive heart failure) Heart failure chronicity: chronic Heart failure type: unspecified Qualified Code(s): I50.9 - Heart failure, unspecified
[2025-09-18] MEDS: ACETAMINOPHEN 325 MG TAB PO SCH (20:32)
[2025-09-19] MEDS: predniSONE 20 MG TAB PO ONE (11:00)
[2025-09-19] MEDS: BUDESONIDE 0.5 MG/2 ML VIAL (PULMICORT) NEB SCH (11:48)
--- NOTE | 2025-09-19 12:18 | Hospitalist Progress Note ---
Date of Service September 19, 2025 Assessment & Plan (1) Generalized weakness: Plan: Increasing generalized weakness with aches and pains for the last 2 to 3 days Has not been able to move around due to dizziness and fear of falling Likely secondary to flu Will get PT and OT evaluation prior to discharge (2) Influenza A: Plan: Diagnosed with flu yesterday in the emergency room and the patient did not want to stay She has been on Tamiflu so we will finish the course Will be given symptomatic management for now Cautious amount of fluid given the history of CHF secondary to valvular heart di sease 09/17 no pneumonia on CXR, add nebs, mucinex continue IS, FV continue Tamiflu supportive care 09/18 (+) wheezing add Prednisone add Tylenol BID continue present management 09/19 Persistent wheezing Increase prednisone to 40 mg today add Pulmicort Continue nebs Mucinex, incentive spirometry and flutter valve use encouraged (3) CHF (congestive heart failure): Plan: History of mitral regurgitation and also CHF Has had acute exacerbation of CHF before No evidence of CHF at this time Will hold torsemide and give cautious amount of intravenous fluid for current mild dehydration and dizziness Monitor creatinine and electrolytes 09/19 hold diuretics euvolemic (4) GERD (gastroesophageal reflux disease): Plan: Will continue PPI and famotidine (5) DM type 2 (diabetes mellitus, type 2): Plan: Will hold metformin while in the hospital and continue with insulin Will put her on sliding scale insulin coverage - monitor blood glucose level while on prednisone (6) Depression: Plan: History of depression with anxiety Will continue current medications (7) Hypertension: Plan: Blood pressure remains on the lower side monitor (8) Mitral regurgitation: Plan: History of mitral regurgitation patient is euvolemic DVT prophylaxis Subcu heparin CODE STATUS DNR/DNIdiscussed with the patient Admission and Anticipated Discharge Date Admission Date: September 16, 2025 Subjective Seen sitting up in bed, comfortable, reading a book appears brighter, in good spirits States she feels somewhat better, still having productive cough, but more loose, less chest congestion No shortness of breath Less myalgias/arthralgias No fevers or chills Reports some pain over the right shoulder, right rib area under the breast - has been going on for a few days since she fell No other new symptoms Review of Systems Review of Systems: all noted and negative except for above Physical Exam Physical Exam: General- oriented x 3, not in distress, speaks in sentences with no effort or accessory muscle use Eyes- anicteric Neck- no JVD Dry oral mucosa Lungs-(+) expiratory wheeze bilaterally mild rhonchi No other new symptoms Heart- normal rate, regular rhythm; no murmurs Abdomen- normal bowel sounds, nondistended, soft, no tenderness Extremities- no pretibial edema, no calf tenderness Neuro- alert, oriented x 3; no gross focal neurologic deficits Skin- warm & dry Results & Data Results & Data Vital Signs (Past 12 Hours) Vital Signs Temp Pulse Pulse Resp BP Pulse Ox O2 Del Method 09/19/25 11:56 Room Air 09/19/25 11:43 79 16 98 Room Air 09/19/25 10:55 36.4 C 80 20 114/57 L 97 Room Air 09/19/25 07:52 35.9 C L 76 18 129/73 96 Room Air 09/19/25 07:15 74 09/19/25 07:10 71 16 98 Room Air 09/19/25 03:44 74 20 137/70 95 Room Air all noted and reviewed including below (3) CHF (congestive heart failure) Heart failure chronicity: chronic Heart failure type: unspecified Qualified Code(s): I50.9 - Heart failure, unspecified
[2025-09-19] MEDS: LIDOCAINE 5% 1 PATCH TD SCH (13:01)
[2025-09-19] MEDS: REMOVE LIDODERM PATCH SCH (20:06)
[2025-09-19] MEDS ORDERED: MELATONIN 3 MG TAB PO PRN (23:46)
[2025-09-19] MEDS: MELATONIN 3 MG TAB PO STA (23:53)
[2025-09-20 09:48] LABS: Anion Gap 8 (3-11); Blood Urea Nitrogen 19 mg/dl (6-23); Calcium 9.4 mg/dl (8.6-10.3); Carbon Dioxide 20 mmol/L (21-32); Chloride 111 mmol/L (98-107); Creatinine Clr Calc Pharmacy 45.7 ml/min; Glucose 105 mg/dl (70-99(Fasting)); Sodium 139 mmol/L (136-145)
[2025-09-20 11:28] VITALS: TEMP 98
[2025-09-20 12:21] VITALS: RESP 16; O2SAT 96
--- NOTE | 2025-09-20 14:05 | CT Scan Report ---
CT OF THE CHEST WITHOUT IV CONTRAST CLINICAL HISTORY: r/o aspergillus pneumonia COMPARISON STUDY: Chest CT September 17, 2024. Chest radiograph September 15, 2025. CT DOSE: 289.86 mGy.cm TECHNIQUE: Axial images of the chest were obtained without IV contrast. Images were reviewed in the axial, sagittal, and coronal planes. IV contrast was not administered for this examination. Automat ed exposure control was utilized for the study. A dose lowering technique was utilized adhering to t he principles of ALARA. FINDINGS: Prominent mediastinal lymph nodes are similar to CT of September 17, 2024. These are likely benign. Index right lower paratracheal lymph node on image 76 of 213 measures 1.7 x 1.2 cm. The hear t is mildly enlarged. There is extensive mitral annular calcification. No pericardial effusion. No pn eumothorax or pleural effusion. There is a small hiatal hernia. No confluent consolidation is present . A cluster of tree-in-bud nodules within the left lower lobe are noted. Numerous additional pulmonar y nodules measuring up to 7 mm are present. The largest is within the right lower lobe on image 138. This is unchanged since CT of September 17, 2024. Scattered peripheral predominant ground glass opacit ies are present. There is no cavitation. Calcified granulomas within the spleen are incidentally note d. IMPRESSION: 1. Scattered peripheral predominant groundglass opacities suggestive of an infectious process. Althou gh within the differential, the CT appearance is not highly suggestive of fungal infection. No cavita tion. No confluent consolidation. 2. Scattered pulmonary nodules measuring up to 7 mm, as described above. These are likely benign. A c hest CT in 6 months to ensure stability/resolution is recommended. 3. Mild cardiomegaly. ACT 112: Negative or not required by law. Electronically signed by: Justo Rai M.D. 09/20/2025 2:04 PM
[2025-09-20 15:57] VITALS: BP 112/59; PULSE 74
--- NOTE | 2025-09-20 16:34 | Discharge Summary ---
Discharge Summary Date of Service September 20, 2025 Principal Dx & Hospital Course #1 = Principal Diagnosis (1) Generalized weakness: Increasing generalized weakness with aches and pains for the last 2 to 3 days Has not been able to move around due to dizziness and fear of falling Likely secondary to flu -- resolved (2) Influenza A: Influenza A Aspergillus on sputum culture Diagnosed with flu yesterday in the emergency room and the patient did not want to stay no pneumonia on CXR (+) significant bilateral wheezing given Prednisone 40mg, improved Tamiflu course completed also received nebs, mucinex, incentive spirometer and flutter valve sputum culture: (+) Aspergillus Pharmacist discussed with Ernie Maria ID specialist during rounds, recommended CT chest CT chest: 1. Scattered peripheral predominant groundglass opacities suggestive of an infectious process. Although within the differential, the CT appearance is not highly suggestive of fungal infection. No cavitation. No confluent consolida tion. 2. Scattered pulmonary nodules measuring up to 7 mm, as described above. These are likely benign. A chest CT in 6 months to ensure stability/resolution is recommended. 3. Mild cardiomegaly. patient clinically improving less cough, no shortness of breath, fevers or chills Discharge plan: Prednisone 40 mg x 3 days daily, then stop Levalbuterol nebulized treatments 3 times daily x 7 days Continue to monitor for clinical improvement patient's clinically improving overall, doubt if positive sputum culture for Aspergillus is clinically relevant at this point Possible colonization? if with continued cough and respiratory symptoms, repeat CT chest soon and refer to pulmonary service or ID service for further recommendations (3) Pulmonary nodules/lesions, multiple: seen on CT chest: Scattered pulmonary nodules measuring up to 7 mm, as described above. These are likely benign. A chest CT in 6 months to ensure stability/resolution is recommended. (4) CHF (congestive heart failure): History of mitral regurgitation and also CHF Has had acute exacerbation of CHF before No evidence of CHF at this time Will hold torsemide and give cautious amount of intravenous fluid for current mild dehydration and dizziness Monitor creatinine and electrolytes 09/20 resume diuretics (5) GERD (gastroesophageal reflux disease): continue PPI and famotidine (6) DM type 2 (diabetes mellitus, type 2): continue Insulin and Metformin (7) Depression: History of depression with anxiety continue current medications (8) Hypertension: BP on the lower side inititally improved (9) Mitral regurgitation: History of mitral regurgitation patient is euvolemic DVT prophylaxis Subcu heparin given CODE STATUS DNR/DNIdiscussed with the patient plan of care discussed with patient in detail and at length all questions answered she isunderstanding, agreeable, comfortable with the plan of care Notes For Next Care Provider Medication Changes From Visit as per med rec Admission HPI Per Admitting Provider She is an 85-year-old female with significant past medical history of hypertension, type 2 diabetes on insulin, mood disorder, valvular heart disease with history of CHF, GERD on PPI and subclinical hypothyroidism apparently has been complaining of increasing cough with dizziness and increasing weakness that she could hardly walk around for the last 2 to 3 days. She was in the emergency room yesterday with flu and she did not want to stay. Her condition got worse with increasing cough and increasing weakness that she can hardly move around without dizziness and fear of falling. His labs were unremarkable but given the progressing symptoms she was admitted to medical telemetry unit for continuation of care. She will be given cautious amount of intravenous fluid and symptomatic management of her cough. She has been on Tamiflu and will finish the course. Admission Exam Per Admitting Provider Physical Exam: Lying in bed without any acute distress or shortness of breath Constitutional: + ill appearing and average body habitus Eyes: PERRL, conjunctivae normal, anicteric sclerae ENMT: external ear and nose normal, oropharynx normal Neck: trachea midline, no thyromegaly Respiratory: no respiratory distress Auscultation: + diminished lung sounds (At the bases with minimal crackles) Cardiovascular: Rate/Rhythm: regular rate, regular rhythm and + tachycardic Heart Sounds: normal S1, normal S2 and + murmur (Over precordium 2/6) Extremities: no edema Gastrointestinal (Abdomen): Inspection/Auscultation: normal bowel sounds; abdomen not distended Percussion/Palpation: abdomen soft; abdomen nontender Musculoskeletal: No acute arthritis involving any of the joint Neurologic: normal touch/pain/proprioception and moves all extremities; no focal motor deficits Psychiatric: A+Ox3, euthymic affect Lymphatic: no cervical or axillary lymphadenopathy Discharge Exam General- oriented x 3, not in distress, speaks in sentences with no effort or accessory muscle use Eyes- anicteric Neck- no JVD Lungs- very faint intermittent wheeze BL no crackles good air entry bilaterally Heart- normal rate, regular rhythm; no murmurs Abdomen- normal bowel sounds, nondistended, soft, nontender Extremities- no pretibial edema, no calf tenderness Neuro- alert, oriented x 3; no gross focal neurologic deficits Skin- warm & dry Updated Medication List Medication Instructions Recorded Confirmed Type buspirone 10 mg tablet 15 mg PO QAM 02/22/23 09/16/25 History famotidine 20 mg tablet 20 mg PO BID 02/22/23 09/16/25 History insulin glargine 100 unit/mL (3 16 unit subcut HS 02/22/23 09/16/25 History mL) subcutaneous pen (Lantus Solostar U-100 Insulin) mirtazapine 15 mg tablet 15 mg PO HS 02/22/23 09/16/25 History pantoprazole 40 mg tablet,delayed 40 mg PO BID 02/22/23 09/16/25 History release venlafaxine 150 mg 150 mg PO BID 02/22/23 09/16/25 History capsule,extended release 24 hr vitamin E (dl, acetate) 180 mg 180 mg PO HS 02/22/23 09/16/25 History (400 unit) capsule albuterol sulfate 90 mcg/actuation 2 puff inhalation Q6H PRN SOB 09/17/24 09/16/25 History aerosol inhaler (Ventolin HFA) buspirone 10 mg tablet 10 mg PO HS 09/17/24 09/16/25 History fluticasone furoate 200 1 inh inhalation DAILY 09/17/24 09/16/25 History mcg-vilanterol 25 mcg/dose inhalation powder (Breo Ellipta) gabapentin 100 mg capsule 100 mg PO BID 09/17/24 09/16/25 History loratadine 10 mg capsule 10 mg PO DAILY 09/17/24 09/16/25 History metformin 500 mg tablet,extended 500 mg PO QPM 09/17/24 09/16/25 History release 24 hr metoprolol succinate 25 mg 12.5 mg (1/2 x 25 mg) PO DAILY 30 09/21/24 09/16/25 Rx tablet,extended release 24 hr days #15 tabs (Toprol XL) aripiprazole 2 mg tablet 2 mg PO QAM 09/15/25 09/16/25 History melatonin 5 mg tablet 5 mg PO HS 09/15/25 09/16/25 History mkagqzbh-uzy-dnozr ac 400 1 tab PO QAM 09/15/25 09/16/25 History mcg-calcium carb 500 mg-vit K1 20 mcg tablet (Women's 50 Plus Daily Formula) potassium chloride 20 mEq 20 meq PO HS 09/15/25 09/16/25 History tablet,extended release(part/cryst) spironolactone 25 mg tablet 25 mg PO DAILY 09/15/25 09/16/25 History torsemide 20 mg tablet 20 mg PO 5XWK 09/15/25 09/16/25 History guaifenesin 600 mg tablet, 600 mg PO BID 7 days #14 tabs 09/20/25 Rx extended release 12 hr (Mucinex) levalbuterol HCl 1.25 mg/3 mL 1.25 mg (3 mL) inhalation TID 7 09/20/25 Rx solution for nebulization days #63 mL prednisone 20 mg tablet 40 mg (2 x 20 mg) PO DAILY 3 days 09/20/25 Rx #6 tabs Hospital Stay Data Consultations 09/16/25 11:35 ED Decision to Admit Stat Diagnostic Imagining Performed Laboratory Results WBC 6.40 K/ul (4.8-10.8) 09/17/25 06:09 RBC 4.54 M/uL (4.20-5.40) 09/17/25 06:09 Hgb 13.5 g/dL (12.0-16.0) 09/17/25 06:09 Hct 39.6 % (37.0-47.0) 09/17/25 06:09 MCV 87.2 fL (80.0-100.0) 09/17/25 06:09 MCH 29.7 pg (25.0-34.0) 09/17/25 06:09 MCHC 34.1 g/dL (32.0-36.0) 09/17/25 06:09 RDW Std Deviation 46.3 fL (36.4-46.3) 09/17/25 06:09 RDW Coeff of Jsoeph 14.6 % (11.5-14.5) H 09/17/25 06:09 Plt Count 187 K/uL (130-400) 09/17/25 06:09 MPV 11.1 fL (9.4-12.4) 09/17/25 06:09 Immature Gran % (Auto) 0.3 % 09/17/25 06:09 Neut % (Auto) 69.1 % 09/17/25 06:09 Lymph % (Auto) 19.8 % 09/17/25 06:09 [place] % (Auto) 10.6 % 09/17/25 06:09 Eos % (Auto) 0.0 % 09/17/25 06:09 Baso % (Auto) 0.2 % 09/17/25 06:09 Neut # (Auto) 4.42 K/uL (1.40-6.50) 09/17/25 06:09 Lymph # (Auto) 1.27 K/uL (1.20-3.40) 09/17/25 06:09 [place] # (Auto) 0.68 K/uL (0.11-0.59) H 09/17/25 06:09 Eos # (Auto) 0.00 K/uL (0.00-0.50) 09/17/25 06:09 Baso # (Auto) 0.01 K/uL (0.00-0.20) 09/17/25 06:09 Immature Gran # (Auto) 0.02 K/uL (0.01-0.20) 09/17/25 06:09 PT 11.8 Seconds (9.0-12.0) 09/16/25 11:15 INR 1.1 (0.9-1.1) 09/16/25 11:15 APTT 33 Seconds (21-31) H 09/16/25 11:15 PTT Ratio 1.2 09/16/25 11:15 Sodium 139 mmol/L (136-145) 09/20/25 08:49 Potassium 3.6 mmol/L (3.5-5.1) 09/20/25 10:38 Chloride 111 mmol/L (98-107) H 09/20/25 08:49 Carbon Dioxide 20 mmol/L (21-32) L 09/20/25 08:49 Anion Gap 8 (3-11) 09/20/25 08:49 BUN 19 mg/dl (6-23) 09/20/25 08:49 Creatinine 0.68 mg/dl (0.6-1.2) 09/20/25 08:49 Est Cr Clr Drug Dosing 45.7 ml/min 09/20/25 08:49 eGFR 84.24 09/20/25 08:49 BUN/Creatinine Ratio 27.9 (10-20) H 09/20/25 08:49 Glucose 105 mg/dl (70-99(Fasting)) H 09/20/25 08:49 POC Glucose 117 mg/dl (70-99) H 09/20/25 12:06 Calcium 9.4 mg/dl (8.6-10.3) 09/20/25 08:49 Phosphorus 2.7 mg/dl (2.5-4.9) 09/17/25 06:09 Magnesium 1.8 mg/dl (1.7-2.4) 09/17/25 06:09 Total Bilirubin 0.4 mg/dl (0.2-1.0) 09/16/25 11:15 AST 31 U/L (13-39) 09/16/25 11:15 ALT 23 U/L (7-52) 09/16/25 11:15 Alkaline Phosphatase 86 U/L (34-104) 09/16/25 11:15 Troponin I High Sens 25.6 pg/ml (0-14) H D 09/16/25 11:15 Total Protein 7.3 gm/dl (6.0-8.3) 09/16/25 11:15 Albumin 4.4 gm/dl (3.4-5.0) 09/16/25 11:15 Globulin 2.9 gm/dl (2.5-4.0) 09/16/25 11:15 Albumin/Globulin Ratio 1.5 (0.9-2) 09/16/25 11:15 Procalcitonin 0.57 ng/ml (0-0.5) H 09/16/25 11:15 Urine Color Yellow 09/16/25 20:00 Urine Appearance Clear (Clear) 09/16/25 20:00 Urine pH 6.0 (4.5-7.5) 09/16/25 20:00 Ur Specific [place] 1.019 (1.000-1.030) 09/16/25 20:00 Urine Protein 1+ (Negative) H 09/16/25 20:00 Urine Glucose (UA) 1+ (Negative) H 09/16/25 20:00 Urine Ketones Negative (Negative) 09/16/25 20:00 Urine Blood Negative (Negative) 09/16/25 20:00 Urine Nitrite Negative (Negative) 09/16/25 20:00 Urine Bilirubin Negative (Negative) 09/16/25 20:00 Urine Urobilinogen Negative (Negative) 09/16/25 20:00 Ur Leukocyte Esterase Negative (Negative) 09/16/25 20:00 Urine WBC (Auto) 0-5 /hpf (0-5) 09/16/25 20:00 Urine RBC (Auto) 0-2 /hpf (0-2) 09/16/25 20:00 U Hyaline Cast (Auto) 0-2 /lpf (0-2) 09/16/25 20:00 U Epithel Cells (Auto) 0-2 /hpf (0-2) 09/16/25 20:00 Urine Bacteria (Auto) None Seen (None Seen) 09/16/25 20:00 Urine Comment 09/16/25 20:[address] 09/20/25 11:52 CT OF THE CHEST WITHOUT IV CONTRAST CLINICAL HISTORY: r/o aspergillus pneumonia COMPARISON STUDY: Chest CT September 17, 2024. Chest radiograph September 15, 2025. CT DOSE: 289.86 mGy.cm TECHNIQUE: Axial images of the chest were obtained without IV contrast. Images were reviewed in the axial, sagittal, and coronal planes. IV contrast was not administered for this examination. Automated exposure control was utilized for the study. A dose lowering technique was utilized adhering to the principles of ALARA. FINDINGS: Prominent mediastinal lymph nodes are similar to CT of September 17, 2024. These are likely benign. Index right lower paratracheal lymph node on image 76 of 213 measures 1.7 x 1.2 cm. The heart is mildly enlarged. There is extensive mitral annular calcification. No pericardial effusion. No pneumothorax or pleural effusion. There is a small hiatal hernia. No confluent consolidation is present. A cluster of tree-in-bud nodules within the left lower lobe are noted. Numerous additional pulmonary nodules measuring up to 7 mm are present. The largest is within the right lower lobe on image 138. This is unchanged since CT of September 17, 2024. Scattered peripheral predominant ground glass opacities are present. There is no cavitation. Calcified granulomas within the spleen are incidentally noted. IMPRESSION: 1. Scattered peripheral predominant groundglass opacities suggestive of an infectious process. Although within the differential, the CT appearance is not highly suggestive of fungal infection. No cavitation. No confluent consolidation. 2. Scattered pulmonary nodules measuring up to 7 mm, as described above. These are likely benign. A chest CT in 6 months to ensure stability/resolution is recommended. 3. Mild cardiomegaly. ACT 112: Negative or not required by law. Electronically signed by: Justo Rai M.D. 09/20/2025 2:04 PM Pending Results Patient Have Any Pending Studies at Discharge: No Discharge Instructions Given to Patient (Per Discharging Provider) PLEASE REFER TO YOUR NEW MEDICATION LIST AND FOLLOW INSTRUCTIONS CAREFULLY. YOUR NEW MEDICATIONS INCLUDE: Prednisone- oral steroid Levalbuterol- nebulizer treatment, use for 5-7 days Mucinex- to thin mucus build up Please continue to use your incentive spirometer and flutter valve frequently at home for 5-7 days. PLEASE CALL YOUR PRIMARY CARE PHYSICIAN OR RETURN TO THE ER IF WITH WORSENING OF SYMPTOMS, INCLUDING shortness of breath, cough, fever/chills, weakness, etc FOLLOW UP WITH PRIMARY CARE PHYSICIAN OUTLINED ABOVE. Total Time Total Time Spent Total Time Spent (In Minutes): 45 minutes
== END 2025-09-20 17:12 | disposition home or self-care (01) | DRG 194 ==
LOC: ED 10:30 → EDINP 11:55 → SUATTDRO 11:55 → 2W 15:24